=== PATIENT | female | born 1950 | race Caucasian/White ===

== ENCOUNTER 2016-09-24 18:29 | Inpatient (IN) ==
[2016-09-24 19:45] LABS: Basophils % 0.4 %; Eosinophils # 0.1 K/mcL (0.0-0.6); Eosinophils % 0.6 %; Hematocrit 40.9 % (35.3-44.9); Hemoglobin 13.2 g/dL (11.5-15.4); Immature Granulocytes % 0.5 % (0-4); Lymphocytes # 2.3 K/mcL (0.6-4.6); Lymphocytes % 22.3 %; Mean Corpuscular HGB Conc 32.3 g/dL (31.6-35.5); Mean Corpuscular Hemoglobin 26.2 pg (28.0-33.3); Mean Corpuscular Volume 81.2 fL (83.0-100.0); Mean Platelet Volume 11.5 fL (9.4-12.4); Monocytes # 0.7 K/mcL (0.0-1.3); Monocytes % 6.2 %; Neutrophils # 7.3 K/mcL (1.6-8.9); Platelet Count 238 K/mcL (140-400); Red Blood Count 5.04 M/mcL (3.82-4.97); Red Cell Distribution Width 15.9 % (11.5-14.5)
[2016-09-24 19:59] LABS: Alanine Aminotransferase 10 Units/L (0-55); Albumin 3.4 g/dL (3.5-5.0); Albumin/Globulin Ratio 0.9 (1.1-2.2); Alkaline Phosphatase 74 Units/L (38-126); Aspartate Amino Transferase 12 Units/L (5-34); BUN/Creatinine Ratio 14 (6-26); Bilirubin,Total 2.1 mg/dL (0.2-1.2); Blood Urea Nitrogen 10 mg/dL (7-20); Calcium 9.2 mg/dL (8.6-10.8); Carbon Dioxide 21 mEq/L (19-29); Chloride 108 mEq/L (98-109); Globulin 3.9 g/dL (2.4-3.5); Glucose 258 mg/dL (70-99); Osmolality,Calculated 294 (280-300); Potassium 3.9 mEq/L (3.5-4.5); Sodium 138 mEq/L (136-145); Total Protein 7.3 g/dL (6.0-8.3); eGFR For African Americans > 60 (> 60); eGFR For Non-African Americans > 60 (> 60)
[2016-09-24 20:03] LABS: Prothrombin Time 56.7 Seconds (9.4-12.1)
[2016-09-24] MEDS ORDERED: Furosemide 40 MG/4 ML VIAL IVP ONE (20:14)
--- NOTE | 2016-09-24 20:19 | Emergency Department Note ---
Disposition Clinical Impression: CHF (congestive heart failure), Supratherapeutic INR Disposition: Admitted As Inpatient Referrals: NO,PCP [Non-Partnered Physician] - Forms: ED Satisfaction Letter SOB HPI - General Chief Complaint: ED Shortness of Breath/Dyspnea Stated Complaint: "swollen, gaining fluid, SUKUMAR" Time Seen by Provider: 09/24/16 19:08 Source: patient Limitations: no limitations Nursing Notes Reviewed: Yes Vital Signs Reviewed: Yes - History of Present Illness Patient presents to complaint of vertigo weight gain over the past month. Patient will she is been having increasing shortness of breath with activity and at rest. Patient denies any chest pain denies fevers or chills. Patient is unsure of what Lasix she is on. Patient says she called her doctor reported these findings and she was instructed to report and was referred evaluation. - Related Data Home Medications Medication Instructions Recorded Confirmed GlipiZIDE [Glipizide] 10 mg PO BID 05/21/15 08/01/16 Lisinopril [Zestril] 10 mg PO DAILY 05/21/15 08/01/16 Metformin HCl [Glucophage] 1,000 mg PO BID 05/21/15 08/01/16 Metoprolol [Lopressor] 25 mg PO BID 05/21/15 08/01/16 Amlodipine [Norvasc] 5 mg PO DAILY 05/22/15 08/01/16 Aspirin Enteric Coated [Aspirin EC] 81 mg PO DAILY 05/22/15 08/01/16 Omeprazole [PriLOSEC] 20 mg PO DAILY 05/22/15 08/01/16 Spironolactone [Aldactone] 25 mg PO DAILY 05/22/15 08/01/16 Insulin Glargine,Hum.rec.anlog 20 unit SQ HS 08/01/16 08/01/16 [Lantus Solostar] Oxygen 2 l NS AD 08/01/16 08/01/16 Simvastatin [Zocor] 40 mg PO HS 08/01/16 08/01/16 Previous Rx's Medication Instructions Recorded Warfarin [Coumadin] 6 mg PO 1800 7 Days 05/26/15 Amoxicillin/Clavulanate [Augmentin] 875 mg PO BIDWM #6 tablet 08/06/16 Furosemide [Lasix] 80 mg PO DAILY 30 Days 08/06/16 Guaifenesin [Mucinex] 1,200 mg PO BID PRN #30 tab.er.12h 08/06/16 Oxycodone HCl/Acetaminophen 1 each PO DAILY PRN #20 tablet 08/06/16 [Percocet 5-325 mg Tablet] Potassium Chloride [K-Tab ER] 10 meq PO DAILY #30 tablet.er 08/06/16 PredniSONE 10 mg PO DAILY 12 Days 08/06/16 Allergies Allergy/AdvReac Type Severity Reaction Status Date / Time No Known Allergies Allergy Verified 05/21/15 20:00 All systems ED: reviewed and negative except as stated. 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: non-contributory - Social History Smoking Status: Never smoker Smokeless Tobacco Status: Yes Alcohol use: Reports: none Drug use: Reports: none Physical Exam - General Limitations: no limitations General appearance: alert, in no apparent distress - Head Head exam: atraumatic, normocephalic, normal inspection - Eye Eye exam: Present: normal appearance, PERRL, EOMI - ENT ENT exam: normal exam, normal oropharynx, mucous membranes moist - Neck Neck exam: Present: normal inspection, full ROM, trachea midline - Chest Chest inspection: Present: normal inspection, symmetric chest wall rise - Respiratory Respiratory exam: Present: prolonged expiratory phase, other (Fair air movement) - Cardiovascular Cardiovascular exam: Present: regular rate, normal rhythm, normal heart sounds - Abdominal Exam Abdominal exam: Present: soft, Non-Tender. Absent: tenderness, distention, guarding, rebound, rigidity - Extremities Exam Extremities exam: Present: pedal edema - Back Exam Back exam: Present: normal inspection, full ROM. Absent: tenderness - Neurological Exam Neurological exam: Present: alert, oriented X3 - Psychiatric Psychiatric exam: Present: normal affect, normal mood - Skin Skin exam: Present: warm, dry, intact, normal color Course Vital Signs Temperature 98.6 F 09/24/16 19:01 Pulse Rate 86 09/24/16 19:01 Respiratory Rate 18 09/24/16 19:01 Blood Pressure 171/83 09/24/16 19:01 O2 Sat by Pulse Oximetry 89 L 09/24/16 19:01 Temperature 98.6 F 09/24/16 19:01 Pulse Rate 88 09/24/16 20:49 Respiratory Rate 22 09/24/16 20:49 Blood Pressure 156/78 09/24/16 20:49 O2 Sat by Pulse Oximetry 92 L 09/24/16 20:49 Oxygen Delivery Oxygen Delivery Nasal Cannula Shortness of Breath/Dyspnea - Differential Diagnosis Likely: acute exacerbation of chronic obstructive airways disease, congestive heart failure, pneumonia, pulmonary embolism - Lab Data Lab results reviewed: Yes I reviewed the patient's lab results. Result diagrams: 09/24/16 19:42 09/24/16 19:42 Lab Results 09/24/16 09/24/16 09/24/16 Range/Units 19:42 19:42 19:42 WBC 10.5 (4.3-11.1) K/mcL RBC 5.04 H (3.82-4.97) M/mcL Hgb 13.2 (11.5-15.4) g/dL Hct 40.9 (35.3-44.9) % MCV 81.2 L (83.0-100.0) fL MCH 26.2 L (28.0-33.3) pg MCHC 32.3 (31.6-35.5) g/dL RDW 15.9 H (11.5-14.5) % Plt Count 238 (140-400) K/mcL MPV 11.5 (9.4-12.4) fL Immature Gran % 0.5 (0-4) % Seg Neutrophils % 70.0 % Lymphocytes % 22.3 % Monocytes % 6.2 % Eosinophils % 0.6 % Basophils % 0.4 % Neutrophils # 7.3 (1.6-8.9) K/mcL Lymphocytes # 2.3 (0.6-4.6) K/mcL Monocytes # 0.7 (0.0-1.3) K/mcL Eosinophils # 0.1 (0.0-0.6) K/mcL Basophils # 0.0 (0.0-0.2) K/mcL PT 56.7 H* (9.4-12.1) Seconds INR 5.0 H* APTT 53.0 H (26.0-36.0) Seconds Sodium 138 (136-145) mEq/L Potassium 3.9 (3.5-4.5) mEq/L Chloride 108 (98-109) mEq/L Carbon Dioxide 21 (19-29) mEq/L BUN 10 (7-20) mg/dL Creatinine 0.74 (0.57-1.11) mg/dL Est GFR ( Amer) > 60 (> 60) Est GFR (Non-Af Amer) > 60 (> 60) BUN/Creatinine Ratio 14 (6-26) Glucose 258 H (70-99) mg/dL Calculated Osmolality 294 (280-300) Calcium 9.2 (8.6-10.8) mg/dL Total Bilirubin 2.1 H (0.2-1.2) mg/dL AST 12 (5-34) Units/L ALT 10 (0-55) Units/L Alkaline Phosphatase 74 (38-126) Units/L Troponin I (0-0.03) ng/mL B-Natriuretic Peptide (0-100) pg/mL Serum Total Protein 7.3 (6.0-8.3) g/dL Albumin 3.4 L (3.5-5.0) g/dL Globulin 3.9 H (2.4-3.5) g/dL Albumin/Globulin Ratio 0.9 L (1.1-2.2) 09/24/16 09/24/16 Range/Units 19:42 19:42 WBC (4.3-11.1) K/mcL RBC (3.82-4.97) M/mcL Hgb (11.5-15.4) g/dL Hct (35.3-44.9) % MCV (83.0-100.0) fL MCH (28.0-33.3) pg MCHC (31.6-35.5) g/dL RDW (11.5-14.5) % Plt Count (140-400) K/mcL MPV (9.4-12.4) fL Immature Gran % (0-4) % Seg Neutrophils % % Lymphocytes % % Monocytes % % Eosinophils % % Basophils % % Neutrophils # (1.6-8.9) K/mcL Lymphocytes # (0.6-4.6) K/mcL Monocytes # (0.0-1.3) K/mcL Eosinophils # (0.0-0.6) K/mcL Basophils # (0.0-0.2) K/mcL PT (9.4-12.1) Seconds INR APTT (26.0-36.0) Seconds Sodium (136-145) mEq/L Potassium (3.5-4.5) mEq/L Chloride (98-109) mEq/L Carbon Dioxide (19-29) mEq/L BUN (7-20) mg/dL Creatinine (0.57-1.11) mg/dL Est GFR ( Amer) (> 60) Est GFR (Non-Af Amer) (> 60) BUN/Creatinine Ratio (6-26) Glucose (70-99) mg/dL Calculated Osmolality (280-300) Calcium (8.6-10.8) mg/dL Total Bilirubin (0.2-1.2) mg/dL AST (5-34) Units/L ALT (0-55) Units/L Alkaline Phosphatase (38-126) Units/L Troponin I 0.01 (0-0.03) ng/mL B-Natriuretic Peptide 135 H (0-100) pg/mL Serum Total Protein (6.0-8.3) g/dL Albumin (3.5-5.0) g/dL Globulin (2.4-3.5) g/dL Albumin/Globulin Ratio (1.1-2.2) - Radiology Data Radiology results reviewed: Yes I reviewed the patient's radiology results. Chest X-Ray 09/24/16 19:08 IMPRESSION: CHF with mild pulmonary edema. D/ / Scout Mathis MD / Scout Mathis MD Interpreting Provider: Scout Mathis MD - EKG Data EKG attestation: Yes I reviewed and interpreted this EKG. EKG results narrative: EKG is unchanged from previous. Electrically paced Critical Care Time Total Critical Care Time: 30 Attestation: Critical care performed: Time is exclusive of separately billable procedures. Time includes: direct patient care, patient reassessment, coordination of patient care, interpretation of data (laboratory data, radiology data, and respiratory data), review of patient's medical records, medical consultation and documentation of patient care. Procedures included in critical care time: Procedures excluded from critical care time:
[2016-09-24] MEDS ORDERED: Naloxone 0.4 MG/ML INJ IVP PRN (23:34)
[2016-09-25] MEDS ORDERED: *HR* OxyCODONE/APAP 5/325 TABLET PO PRN (00:04)
[2016-09-25] MEDS ORDERED: D5% in Water 1,000 ML IV PRN (00:13)
[2016-09-25] MEDS ORDERED: *HR* Dextrose 50 % in Water (Syg) 50 ML SYRINGE IVP PRN (00:13)
[2016-09-25] MEDS ORDERED: Dextrose Gel 15 GM PO PRN ×2 (00:13)
--- NOTE | 2016-09-25 00:37 | Internal Med History&Physical ---
Date of Encounter: 09/25/16 Time of Encounter: 23:30 Assessment and Plan (1) CHF (congestive heart failure) Current visit: Yes Status: Acute 1 acute on chronic diastolic failure. Echo March 2016 EF 60%. Patient's been experiencing increasing shortness of breath pedal edema as well as weight gain. Chest x-ray with CHF mild pulmonary edema. Diuresis with Lasix 2 daily weights and monitor intake and output 3. Fluid restriction and low sodium diet 4 oxygen as needed to maintain SPO2 greater than 92% 5 monitor electrolytes and replace as needed (2) Supratherapeutic INR Current visit: Yes Status: Acute 1 patient is on Coumadin for chronic A. fib. INR today is 5.0. Patient taking Coumadin 5 mg daily Will hold recheck INR Thursday. (3) Atrial fibrillation Current visit: No Status: Chronic 1 patient has chronic atrial fibrillation will continue with metoprolol for rate control. We will hold Coumadin for now due to supratherapeutic INR. We will resume once INR below 3 Qualifiers: Atrial fibrillation type: chronic Qualified Code(s): I48.2 - Chronic atrial fibrillation (4) DVT prophylaxis Current visit: No Status: Acute 1 SCDs due to supratherapeutic INR (5) Diabetes mellitus Current visit: No Status: Chronic 1 Accu-Cheks before meals at bedtime we will continue with Lantus and sliding scale insulin and maintain postprandial less than 180 Qualifiers: Diabetes mellitus type: type 2 Diabetes mellitus complication status: with unspecified complications Diabetes mellitus philatelic consultant insulin use: unspecified skilled nursing insulin use status Qualified Code(s): E11.8 - Type 2 diabetes mellitus with unspecified complications Internal Medicine - H&P: HPI Chief complaint: SOB weight gain Admitted From: Home History of present illness: Ms. Jasmine is a 65 year old female past medical history of atrial fibrillation and congestive heart failure DVT diabetes hyperlipidemia pacemaker with AICD. Patient states she is experiencing shortness of breath and cough for 3 days. She is on home oxygen 2 L which he states is not relieving any of her symptoms. She has also noticed increased swelling to lower extremities as well as a 30 pound weight gain over a month. She is on Lasix which she states is taking her as prescribed she denies any fevers chills nausea vomiting diarrhea. She went to her primary care physician today for routine lab draw and reported symptoms. She was advised to go to ER for evaluation. According to ED records patient's BNP was 135 troponin 0.01 she has supra therapeutic INR 5.0 chest x- ray revealed CHF mild pulmonary edema. She was given IV Lasix place on oxygen and admitted for further workup and evaluation. Presently the patient denies any CP She complains of SOB on exertion and has a dry nonproductive cough. She does not appear to be in any respiratory distress and her lung sounds have crackles in the bases bilat She is hemodynamically stable Past Med Surg Social Fam HX - Past Medical History Medical history: atrial fibrillation, cancer, CHF, DVT, diabetes, GERD, hyperlipidemia, hypertension Psychiatric history: no psych history - Past Surgical History Surgical History: , cholecystectomy, pacemaker/AICD - Social History Smoking Status: Never smoker Smokeless Tobacco Status: Yes Alcohol use: none Drug use: none - Family History Mother Adopted: No Living Status: Hx Family Cardiac Disorders: No Hx Family Respiratory Disorders: No Hx Family Cancer: Yes (colon cancer) Hx Family GI Disorders: Yes Hx Family Endocrine Disorder: No Hx Family Neuromuscular Disorders: No Hx Family Neurologic Disorders: No Hx Family HEENT Disorders: No Hx Family Autoimmune Disorders: No Father Adopted: No Living Status: Hx Family Cardiac Disorders: Yes (HTN) Hx Family Neurologic Disorders: Yes (stroke) Internal Medicine - H&P: Meds GlipiZIDE [Glipizide] 10 mg PO BID 05/21/15 [History] Lisinopril [Zestril] 10 mg PO DAILY 05/21/15 [History] Metformin HCl [Glucophage] 1,000 mg PO BID 05/21/15 [History] Metoprolol [Lopressor] 25 mg PO BID 05/21/15 [History] Amlodipine [Norvasc] 5 mg PO DAILY 05/22/15 [History] Aspirin Enteric Coated [Aspirin EC] 81 mg PO DAILY 05/22/15 [History] Omeprazole [PriLOSEC] 20 mg PO DAILY 05/22/15 [History] Spironolactone [Aldactone] 25 mg PO DAILY 05/22/15 [History] Warfarin [Coumadin] 6 mg PO 1800 7 Days 05/26/15 [Rx] Insulin Glargine,Hum.rec.anlog [Lantus Solostar] 40 unit SQ HS 08/01/16 [History ] Oxygen 2 l NS AD 08/01/16 [History] Simvastatin [Zocor] 40 mg PO HS 08/01/16 [History] Oxycodone HCl/Acetaminophen [Percocet 5-325 mg Tablet] 1 each PO DAILY PRN #20 tablet 08/06/16 [Rx] Aclidinium [place] [Tudorza Pressair] 1 puff IH BID 09/24/16 [History] Furosemide [Lasix] 40 mg PO DAILY 09/24/16 [History] Insulin ASPART [NovoLOG] 10 unit SQ TID 09/24/16 [History] Nystatin Cream [Mycostatin Cream] 1 appl TP BID 09/24/16 [History] Allergies No Known Allergies Allergy (Verified 09/24/16 21:30) All Systems PM: A 10-system review of systems was performed and is negative for pertinent findings except as documented above in the HPI. - Constitutional Constitutional: fatigue - Cardiovascular Cardiovascular ROS IM: dyspnea - Respiratory Respiratory: cough, dyspnea, wheezing - Gastrointestinal Gastrointestinal: early satiety - Genitourinary Genitourinary: no change in urinary stream, no dysuria, no flank pain, no hematuria - Musculoskeletal Musculoskeletal ROS IM: no numbness, no tingling - Neurological Neurological ROS: no confusion, no convulsions, no focal weakness, no numbness, no tingling, no tremor(s) - Constitutional Vitals: Temp Pulse Resp BP Pulse Ox 98.6 F 84 16 145/69 92 L 09/24/16 23:01 09/24/16 23:01 09/24/16 23:01 09/24/16 23:01 09/24/16 23:01 General appearance: Present: A&O X 3, morbidly obese, answers questions appropriately - Head Head exam: Present: atraumatic, normocephalic - Respiratory Respiratory exam: Present: CTAB. Absent: accessory muscle use, rales, rhonchi, wheezes Additional comments: Crackles in bases bilaterally - Cardiovascular Cardiovascular exam: Present: irregular rhythm, +S1, +S2. Absent: diastolic murmur, gallop, rubs, systolic murmur - GI/Abdominal GI/Abdominal exam: Present: normal bowel sounds, soft, no peritoneal signs. Absent: distended, tenderness - Extremities Exam Extremities exam: Present: pedal edema, warm, radial pulses palpable and symetrical. Absent: calf tenderness, cyanotic Additional comments: +1 pitting edema to lower extremities bilaterally - Neurological Exam Neurological exam: Present: CN II-XII intact, oriented X3, no focal deficits. Absent: pronater drift, facial droop, speech deficit - Skin Skin exam: Present: dry, intact Internal Med - H&P Results - Labs CBC & Chem 7: 09/24/16 19:42 09/24/16 19:42 - EKG Data EKG comments: 09/25/16 00:40 EKG with ventricularly paced rhythm - Diagnostic Studies Chest x-ray Additional comments: Chest x-ray per radiology reading mild CHF with pulmonary edema
[2016-09-25 03:29] LABS: Basophils % 0.4 %; Eosinophils # 0.1 K/mcL (0.0-0.6); Eosinophils % 0.8 %; Hematocrit 38.4 % (35.3-44.9); Hemoglobin 12.3 g/dL (11.5-15.4); Immature Granulocytes % 0.5 % (0-4); Immature Platelets 8.4 % (1.1-6.1); Lymphocytes # 2.5 K/mcL (0.6-4.6); Lymphocytes % 29.7 %; Mean Corpuscular Hemoglobin 25.9 pg (28.0-33.3); Mean Corpuscular Volume 80.8 fL (83.0-100.0); Mean Platelet Volume 11.6 fL (9.4-12.4); Monocytes # 0.7 K/mcL (0.0-1.3); Monocytes % 7.8 %; Neutrophils # 5.2 K/mcL (1.6-8.9); Platelet Count 206 K/mcL (140-400); Red Blood Count 4.75 M/mcL (3.82-4.97); Red Cell Distribution Width 15.8 % (11.5-14.5); Segmented Neutrophils % 60.8 %
[2016-09-25 03:46] LABS: BUN/Creatinine Ratio 16 (6-26); Blood Urea Nitrogen 11 mg/dL (7-20); Calcium 9.2 mg/dL (8.6-10.8); Carbon Dioxide 27 mEq/L (19-29); Chloride 105 mEq/L (98-109); Glucose 204 mg/dL (70-99); Osmolality,Calculated 295 (280-300); Potassium 3.5 mEq/L (3.5-4.5); Sodium 140 mEq/L (136-145); eGFR For African Americans > 60 (> 60); eGFR For Non-African Americans > 60 (> 60)
[2016-09-25] MEDS: Aspirin Enteric Coated 81 MG Tablet PO SCH (08:29)
[2016-09-25] MEDS: Insulin LISPRO 300 UNITS/3 ML VIAL SQ SCH ×4 (08:30→21:36)
[2016-09-25] MEDS: amLODIPine 5 MG TABLET PO SCH (08:30)
[2016-09-25] MEDS: Furosemide 40 MG/4 ML VIAL IVP SCH ×2 (08:30→21:37)
[2016-09-25] MEDS: Spironolactone 25 MG TABLET PO SCH (08:30)
--- NOTE | 2016-09-25 13:09 | Internal Med Progress Note ---
Date of Encounter: 09/25/16 Time of Encounter: 12:25 - Assessment and plan (1) CHF (congestive heart failure) Current Visit: Yes Status: Acute Assessment and plan: Continue current management Add robitussin for cough Qualifiers: Congestive heart failure type: diastolic Congestive heart failure chronicity: acute on chronic Qualified Code(s): I50.33 - Acute on chronic diastolic (congestive) heart failure (2) Supratherapeutic INR Current Visit: Yes Status: Acute Assessment and plan: MOnitor INR No evidence of bleeding (3) COPD (chronic obstructive pulmonary disease) Current Visit: Yes Status: Chronic Assessment and plan: Not wheezing Not in exacerbation Duonebs prn Qualifiers: COPD type: COPD with acute lower respiratory infection Qualified Code(s): J44.0 - Chronic obstructive pulmonary disease with acute lower respiratory infection (4) Atrial fibrillation Current Visit: Yes Status: Chronic Qualifiers: Atrial fibrillation type: chronic Qualified Code(s): I48.2 - Chronic atrial fibrillation (5) Diabetes mellitus Current Visit: Yes Status: Chronic Assessment and plan: Continue insulin Qualifiers: Diabetes mellitus type: type 2 Diabetes mellitus complication status: with unspecified complications 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 mellitus 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 term care phlebotomist insulin use: unspecified senior care insulin use status Qualified Code(s): E11.8 - Type 2 diabetes mellitus with unspecified complications (6) HTN (hypertension) Current Visit: Yes Status: Chronic Qualifiers: Hypertension type: essential hypertension Qualified Code(s): I10 - Essential (primary) hypertension - Subjective Interval history: 65 Y/O F with dCHF, Afib with PCM on Coumadin, Obesity, HTN, DM, HLD She is being managed for CHF exacerbation and supratherapeutic INR She is seen at bedside with spouse, cheerful in no form of distress Complains of hoarseness from cough - Constitutional Vitals: Temp Pulse Resp BP Pulse Ox 97.6 F 75 16 109/65 90 L 09/25/16 11:14 09/25/16 11:14 09/25/16 11:14 09/25/16 11:14 09/25/16 11:14 General appearance: Present: A&O X 3, morbidly obese, no acute distress, answers questions appropriately - Head Head exam: Present: atraumatic, normocephalic - Eye Eye exam: Present: PERRL, conjuntiva pink, sclera anicteric Pupils: Present: PERRL - Neck Neck exam general surgery: Present: supple, trachea midline. Absent: lymphadenopathy - Respiratory Respiratory exam: Present: CTAB. Absent: accessory muscle use, rales, rhonchi, wheezes - Cardiovascular Cardiovascular exam: Present: irregular rhythm, +S1, +S2. Absent: diastolic murmur, gallop, rubs, systolic murmur - GI/Abdominal GI/Abdominal exam: Present: normal bowel sounds, soft, no peritoneal signs. Absent: distended, tenderness - Extremities Exam Extremities exam: Present: pedal edema, warm, radial pulses palpable and symetrical. Absent: calf tenderness, cyanotic - Neurological Exam Neurological exam: Present: CN II-XII intact, oriented X3, no focal deficits. Absent: pronater drift, facial droop, speech deficit - Skin Skin exam: Present: dry Internal Medicine: Result - Labs CBC & Chem 7: 09/25/16 02:56 09/25/16 02:56 Labs: Short CBC 09/25/16 Range/Units 02:56 WBC 8.6 (4.3-11.1) K/mcL Hgb 12.3 (11.5-15.4) g/dL Hct 38.4 (35.3-44.9) % Plt Count 206 (140-400) K/mcL Neutrophils # 5.2 (1.6-8.9) K/mcL BMP 09/25/16 02:56 Sodium 140 Potassium 3.5 Chloride 105 Carbon Dioxide 27 BUN 11 Creatinine 0.68 Glucose 204 H Calcium 9.2 Cardiac Enzymes 09/25/16 09/25/16 Range/Units 02:56 10:06 Troponin I 0.01 0.02 (0-0.03) ng/mL - ABG Interpretation ABG results: PT/INR, D-dimer PT 56.7 Seconds (9.4-12.1) H* 09/24/16 19:42 Consult Discharge Plan - Plan Referrals: Desi Cornell [Primary Care Provider] -
--- NOTE | 2016-09-25 14:38 | Electrocardiograph Report ---
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
--- NOTE | 2016-09-25 14:44 | Electrocardiograph Report ---
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
[2016-09-25] MEDS: Insulin DETEMIR 100 UNIT/ML X5UNITS SQ SCH (21:37)
[2016-09-26 04:35] LABS: Basophils % 0.5 %; Eosinophils # 0.1 K/mcL (0.0-0.6); Eosinophils % 1.4 %; Hemoglobin 12.4 g/dL (11.5-15.4); Immature Granulocytes % 0.4 % (0-4); Lymphocytes # 2.6 K/mcL (0.6-4.6); Lymphocytes % 31.9 %; Mean Corpuscular HGB Conc 31.8 g/dL (31.6-35.5); Mean Corpuscular Hemoglobin 25.5 pg (28.0-33.3); Mean Corpuscular Volume 80.2 fL (83.0-100.0); Mean Platelet Volume 11.7 fL (9.4-12.4); Monocytes # 0.6 K/mcL (0.0-1.3); Monocytes % 7.6 %; Neutrophils # 4.7 K/mcL (1.6-8.9); Platelet Count 227 K/mcL (140-400); Red Blood Count 4.86 M/mcL (3.82-4.97); Red Cell Distribution Width 15.7 % (11.5-14.5); Segmented Neutrophils % 58.2 %
[2016-09-26 04:42] LABS: INR 2.6; Prothrombin Time 29.1 Seconds (9.4-12.1)
[2016-09-26 04:53] LABS: BUN/Creatinine Ratio 23 (6-26); Blood Urea Nitrogen 16 mg/dL (7-20); Carbon Dioxide 27 mEq/L (19-29); Chloride 103 mEq/L (98-109); Glucose 204 mg/dL (70-99); Osmolality,Calculated 295 (280-300); Potassium 3.4 mEq/L (3.5-4.5); Sodium 139 mEq/L (136-145); eGFR For African Americans > 60 (> 60); eGFR For Non-African Americans > 60 (> 60)
[2016-09-26] MEDS: Furosemide 40 MG/4 ML VIAL IVP SCH ×2 (08:37→19:54)
[2016-09-26] MEDS: amLODIPine 5 MG TABLET PO SCH (08:37)
[2016-09-26] MEDS: Aspirin Enteric Coated 81 MG Tablet PO SCH (08:37)
[2016-09-26] MEDS: Spironolactone 25 MG TABLET PO SCH (08:37)
[2016-09-26] MEDS: Insulin LISPRO 300 UNITS/3 ML VIAL SQ SCH ×4 (08:39→20:20)
[2016-09-26] MEDS ORDERED: *HR* Warfarin 3 MG TABLET PO ONE (15:40)
--- NOTE | 2016-09-26 15:44 | Internal Med Progress Note ---
Date of Encounter: 09/26/16 Time of Encounter: 13:10 - Assessment and plan (1) CHF (congestive heart failure) Current Visit: Yes Status: Acute Assessment and plan: Improving, with adequate diuresis, negative 3080mls balance She is also loosing weight Continue IV Lasix, fluid restriction, strict intake/output current management Qualifiers: Congestive heart failure type: diastolic Congestive heart failure chronicity: acute on chronic Qualified Code(s): I50.33 - Acute on chronic diastolic (congestive) heart failure (2) Supratherapeutic INR Current Visit: Yes Status: Acute Assessment and plan: INR today at 2.6 from 5 Will restart coumadin at 3mg , monitor INR (3) COPD (chronic obstructive pulmonary disease) Current Visit: Yes Status: Chronic Assessment and plan: Not wheezing Not in exacerbation Duonebs prn Qualifiers: COPD type: COPD with acute lower respiratory infection Qualified Code(s): J44.0 - Chronic obstructive pulmonary disease with acute lower respiratory infection (4) Atrial fibrillation Current Visit: Yes Status: Chronic Qualifiers: Atrial fibrillation type: chronic Qualified Code(s): I48.2 - Chronic atrial fibrillation (5) Diabetes mellitus Current Visit: Yes Status: Chronic Assessment and plan: Continue insulin Qualifiers: Diabetes mellitus type: type 2 Diabetes mellitus complication status: with unspecified complications Diabetes mellitus rodent exterminator insulin use: unspecified retirement insulin use status Qualified Code(s): E11.8 - Type 2 diabetes mellitus with unspecified complications (6) HTN (hypertension) Current Visit: Yes Status: Chronic Assessment and plan: Controlled Qualifiers: Hypertension type: essential hypertension Qualified Code(s): I10 - Essential (primary) hypertension - Subjective Interval history: 65 Y/O F with dCHF, Afib with PCM on Coumadin, Obesity, HTN, DM, HLD She is being managed for CHF exacerbation and supratherapeutic INR She is seen at bedside with spouse, cheerful in no form of distress - Constitutional Vitals: Temp Pulse Resp BP Pulse Ox 97.9 F 83 17 109/69 90 L 09/26/16 15:17 09/26/16 15:17 09/26/16 15:17 09/26/16 15:17 09/26/16 15:17 General appearance: Present: A&O X 3, morbidly obese, no acute distress, answers questions appropriately - Head Head exam: Present: atraumatic, normocephalic - Eye Eye exam: Present: PERRL, conjuntiva pink, sclera anicteric Pupils: Present: PERRL - Neck Neck exam general surgery: Present: supple, trachea midline. Absent: lymphadenopathy - Respiratory Respiratory exam: Present: CTAB. Absent: accessory muscle use, rales, rhonchi, wheezes - Cardiovascular Cardiovascular exam: Present: RRR, +S1, +S2. Absent: diastolic murmur, gallop, rubs, systolic murmur - GI/Abdominal GI/Abdominal exam: Present: normal bowel sounds, soft, no peritoneal signs. Absent: distended, tenderness - Extremities Exam Extremities exam: Present: pedal edema (trace), warm, radial pulses palpable and symetrical. Absent: calf tenderness, cyanotic - Neurological Exam Neurological exam: Present: CN II-XII intact, oriented X3, no focal deficits. Absent: pronater drift, facial droop, speech deficit - Skin Skin exam: Present: dry, intact Internal Medicine: Result - Labs CBC & Chem 7: 09/26/16 04:11 09/26/16 04:11 Labs: Short CBC 09/26/16 Range/Units 04:11 WBC 8.1 (4.3-11.1) K/mcL Hgb 12.4 (11.5-15.4) g/dL Hct 39.0 (35.3-44.9) % Plt Count 227 (140-400) K/mcL Neutrophils # 4.7 (1.6-8.9) K/mcL BMP 09/26/16 04:11 Sodium 139 Potassium 3.4 L Chloride 103 Carbon Dioxide 27 BUN 16 Creatinine 0.69 Glucose 204 H Calcium 9.0 - ABG Interpretation ABG results: PT/INR, D-dimer PT 29.1 Seconds (9.4-12.1) H 09/26/16 04:11 Consult Discharge Plan - Plan Referrals: Desi Cornell [Primary Care Provider] -
[2016-09-26] MEDS: Insulin DETEMIR 100 UNIT/ML X5UNITS SQ SCH (20:21)
[2016-09-27 04:38] LABS: Basophils # 0.1 K/mcL (0.0-0.2); Basophils % 0.6 %; Eosinophils # 0.1 K/mcL (0.0-0.6); Eosinophils % 1.3 %; Hematocrit 40.9 % (35.3-44.9); Immature Granulocytes % 0.7 % (0-4); Lymphocytes # 2.8 K/mcL (0.6-4.6); Mean Corpuscular HGB Conc 31.8 g/dL (31.6-35.5); Mean Corpuscular Hemoglobin 25.9 pg (28.0-33.3); Mean Corpuscular Volume 81.6 fL (83.0-100.0); Mean Platelet Volume 11.5 fL (9.4-12.4); Monocytes # 0.8 K/mcL (0.0-1.3); Monocytes % 8.4 %; Neutrophils # 5.3 K/mcL (1.6-8.9); Platelet Count 230 K/mcL (140-400); Red Blood Count 5.01 M/mcL (3.82-4.97); Red Cell Distribution Width 15.5 % (11.5-14.5)
[2016-09-27 04:55] LABS: BUN/Creatinine Ratio 27 (6-26); Blood Urea Nitrogen 21 mg/dL (7-20); Calcium 9.2 mg/dL (8.6-10.8); Carbon Dioxide 26 mEq/L (19-29); Chloride 102 mEq/L (98-109); Glucose 286 mg/dL (70-99); Osmolality,Calculated 299 (280-300); Potassium 3.6 mEq/L (3.5-4.5); Sodium 138 mEq/L (136-145); eGFR For African Americans > 60 (> 60); eGFR For Non-African Americans > 60 (> 60)
[2016-09-27] MEDS: Insulin LISPRO 300 UNITS/3 ML VIAL SQ SCH ×4 (06:41→21:25)
[2016-09-27] MEDS: amLODIPine 5 MG TABLET PO SCH (08:33)
[2016-09-27] MEDS: Spironolactone 25 MG TABLET PO SCH (08:33)
[2016-09-27] MEDS: Aspirin Enteric Coated 81 MG Tablet PO SCH (08:33)
[2016-09-27] MEDS: Furosemide 40 MG/4 ML VIAL IVP SCH (08:33)
[2016-09-27 09:50] LABS: INR 1.7; Prothrombin Time 18.4 Seconds (9.4-12.1)
[2016-09-27] MEDS ORDERED: DiphenhydraMINE CREAM 28.4 GM TUBE TP PRN (11:56)
--- NOTE | 2016-09-27 15:02 | Internal Med Progress Note ---
Date of Encounter: 09/27/16 Time of Encounter: 12:25 - Assessment and plan (1) CHF (congestive heart failure) Current Visit: Yes Status: Acute Assessment and plan: Improving, with adequate diuresis, negative 3080mls balance Will transition to oral lasix For possible discharge a.m if improvement is consistent and leg swelling improves Qualifiers: Congestive heart failure type: diastolic Congestive heart failure chronicity: acute on chronic Qualified Code(s): I50.33 - Acute on chronic diastolic (congestive) heart failure (2) Supratherapeutic INR Current Visit: Yes Status: Acute Assessment and plan: INR now 1.7 Coumadin restarted, monitor (3) COPD (chronic obstructive pulmonary disease) Current Visit: Yes Status: Chronic Assessment and plan: Not wheezing Not in exacerbation Duonebs prn Qualifiers: COPD type: COPD with acute lower respiratory infection Qualified Code(s): J44.0 - Chronic obstructive pulmonary disease with acute lower respiratory infection (4) Atrial fibrillation Current Visit: Yes Status: Chronic Assessment and plan: rate is controlled Qualifiers: Atrial fibrillation type: chronic Qualified Code(s): I48.2 - Chronic atrial fibrillation (5) Diabetes mellitus Current Visit: Yes Status: Chronic Assessment and plan: Continue insulin Qualifiers: Diabetes mellitus type: type 2 Diabetes mellitus complication status: with unspecified complications Diabetes mellitus residential insulin use: 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 Qualified Code(s): E11.8 - Type 2 diabetes mellitus with unspecified complications (6) HTN (hypertension) Current Visit: Yes Status: Chronic Assessment and plan: Controlled Qualifiers: Hypertension type: essential hypertension Qualified Code(s): I10 - Essential (primary) hypertension (7) Right leg swelling Current Visit: Yes Status: Acute Assessment and plan: Benadryl for itching Possibly from insect bite Unlikely DVT, preliminary report negative Unlikley ruptured nagy's cyst due to location of swelling It is most likely an insect bite If it worsens, will order leg CT to rule out myositis and or collection - Subjective Interval history: 65 Y/O F with dCHF, Afib with PCM on Coumadin, Obesity, HTN, DM, HLD She is being managed for CHF exacerbation and supratherapeutic INR She has lost ~4kg since admission and negative balance >3 INR today 1.7, Coumadin had been restarted last night This morning, patient complains of right calf swelling which initially started as a "bump" and spread to surrounding area with burning sensation . No itching. I have examined the right leg and there is a wheal in the medial kathi area with its longest diameter ~8cm, no surrounding hyperemia there are however one or two visible entry points of what seems to be an insect bite. Her doraslis pedis pulse on the right leg is equal and 2+, as it is in the left. There is no popliteal mass or tenderness Doppler for DVT had been ordered at onset of symptoms by night time, preliminary reading is negative for DVT - Constitutional Vitals: Temp Pulse Resp BP Pulse Ox 97.7 F 90 16 136/84 94 L 09/27/16 11:27 09/27/16 11:27 09/27/16 11:27 09/27/16 11:27 09/27/16 11:27 General appearance: Present: A&O X 3, morbidly obese, no acute distress, answers questions appropriately - Head Head exam: Present: atraumatic, normocephalic - Eye Eye exam: Present: PERRL, conjuntiva pink, sclera anicteric Pupils: Present: PERRL - Neck Neck exam general surgery: Present: supple, trachea midline. Absent: lymphadenopathy - Respiratory Respiratory exam: Present: CTAB. Absent: accessory muscle use, rales, rhonchi, wheezes - Cardiovascular Cardiovascular exam: Present: RRR, +S1, +S2. Absent: diastolic murmur, gallop, rubs, systolic murmur - GI/Abdominal GI/Abdominal exam: Present: normal bowel sounds, soft, no peritoneal signs. Absent: distended, tenderness - Extremities Exam Additional comments: As described in HPI - Neurological Exam Neurological exam: Present: CN II-XII intact, oriented X3, no focal deficits. Absent: pronater drift, facial droop, speech deficit - Skin Skin exam: Present: dry Internal Medicine: Result - Labs CBC & Chem 7: 09/27/16 04:00 09/27/16 04:00 Labs: Short CBC 09/27/16 Range/Units 04:00 WBC 9.1 (4.3-11.1) K/mcL Hgb 13.0 (11.5-15.4) g/dL Hct 40.9 (35.3-44.9) % Plt Count 230 (140-400) K/mcL Neutrophils # 5.3 (1.6-8.9) K/mcL BMP 09/27/16 04:00 Sodium 138 Potassium 3.6 Chloride 102 Carbon Dioxide 26 BUN 21 H Creatinine 0.77 Glucose 286 H Calcium 9.2 - ABG Interpretation ABG results: PT/INR, D-dimer PT 18.4 Seconds (9.4-12.1) H 09/27/16 09:19 Consult Discharge Plan - Plan Referrals: Desi Cornell [Primary Care Provider] -
[2016-09-27] MEDS: Insulin DETEMIR 100 UNIT/ML X5UNITS SQ SCH (21:25)
[2016-09-28 04:20] LABS: Basophils % 0.5 %; Eosinophils # 0.1 K/mcL (0.0-0.6); Eosinophils % 1.4 %; Hematocrit 39.9 % (35.3-44.9); Hemoglobin 12.7 g/dL (11.5-15.4); Immature Granulocytes % 0.3 % (0-4); Lymphocytes # 2.9 K/mcL (0.6-4.6); Lymphocytes % 33.3 %; Mean Corpuscular HGB Conc 31.8 g/dL (31.6-35.5); Mean Corpuscular Hemoglobin 25.9 pg (28.0-33.3); Mean Corpuscular Volume 81.4 fL (83.0-100.0); Monocytes # 0.7 K/mcL (0.0-1.3); Monocytes % 7.7 %; Neutrophils # 4.9 K/mcL (1.6-8.9); Platelet Count 235 K/mcL (140-400); Red Cell Distribution Width 15.5 % (11.5-14.5); Segmented Neutrophils % 56.8 %
[2016-09-28 04:43] LABS: BUN/Creatinine Ratio 32 (6-26); Blood Urea Nitrogen 23 mg/dL (7-20); Calcium 9.2 mg/dL (8.6-10.8); Carbon Dioxide 27 mEq/L (19-29); Chloride 103 mEq/L (98-109); Glucose 261 mg/dL (70-99); Osmolality,Calculated 299 (280-300); Potassium 3.6 mEq/L (3.5-4.5); Sodium 138 mEq/L (136-145); eGFR For African Americans > 60 (> 60); eGFR For Non-African Americans > 60 (> 60)
[2016-09-28 05:27] LABS: INR 1.6; Prothrombin Time 17.3 Seconds (9.4-12.1)
[2016-09-28] MEDS ORDERED: *HR* Warfarin 5 MG TABLET PO ONE (08:40)
[2016-09-28] MEDS: Aspirin Enteric Coated 81 MG Tablet PO SCH (09:46)
[2016-09-28] MEDS: Spironolactone 25 MG TABLET PO SCH (09:46)
[2016-09-28] MEDS: Insulin LISPRO 300 UNITS/3 ML VIAL SQ SCH ×4 (09:47→20:58)
[2016-09-28] MEDS: Furosemide 40 MG TABLET PO SCH ×2 (09:50→17:36)
[2016-09-28] MEDS: amLODIPine 5 MG TABLET PO SCH (12:54)
--- NOTE | 2016-09-28 16:38 | Internal Med Progress Note ---
Date of Encounter: 09/28/16 Time of Encounter: 12:15 - Assessment and plan (1) CHF (congestive heart failure) Current Visit: Yes Status: Acute Assessment and plan: Improving, with adequate diuresis, negative 3080mls balance Will transition to oral lasix For possible discharge a.m if improvement is consistent and leg swelling improves Qualifiers: Congestive heart failure type: diastolic Congestive heart failure chronicity: acute on chronic Qualified Code(s): I50.33 - Acute on chronic diastolic (congestive) heart failure (2) Supratherapeutic INR Current Visit: Yes Status: Acute Assessment and plan: INR now 1.6 Coumadin restarted, monitor (3) COPD (chronic obstructive pulmonary disease) Current Visit: Yes Status: Chronic Assessment and plan: Not wheezing Not in exacerbation Duonebs prn Qualifiers: COPD type: COPD with acute lower respiratory infection Qualified Code(s): J44.0 - Chronic obstructive pulmonary disease with acute lower respiratory infection (4) Atrial fibrillation Current Visit: Yes Status: Chronic Assessment and plan: rate is controlled Qualifiers: Atrial fibrillation type: chronic Qualified Code(s): I48.2 - Chronic atrial fibrillation (5) Diabetes mellitus Current Visit: Yes Status: Chronic Assessment and plan: Continue insulin Qualifiers: Diabetes mellitus type: type 2 Diabetes mellitus complication status: with unspecified complications Diabetes mellitus prison insulin use: 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 Qualified Code(s): E11.8 - Type 2 diabetes mellitus with unspecified complications (6) HTN (hypertension) Current Visit: Yes Status: Chronic Assessment and plan: Controlled Qualifiers: Hypertension type: essential hypertension Qualified Code(s): I10 - Essential (primary) hypertension (7) Right leg swelling Current Visit: Yes Status: Acute Assessment and plan: DVT ruled out Much more improved this a.m, with port of entry of bite visible - Subjective Interval history: 65 Y/O F with dCHF, Afib with PCM on Coumadin, Obesity, HTN, DM, HLD She is being managed for CHF exacerbation and supratherapeutic INR She is adequate;y diuressed and lasix is being transitioned to oral She has no new complains Leg swelling has improved INR subtherapeutic - Constitutional Vitals: Temp Pulse Resp BP Pulse Ox 98.2 F 79 15 122/78 91 L 09/28/16 14:56 09/28/16 14:56 09/28/16 14:56 09/28/16 14:56 09/28/16 14:56 General appearance: Present: A&O X 3, morbidly obese, no acute distress, answers questions appropriately - Head Head exam: Present: atraumatic, normocephalic - Eye Eye exam: Present: PERRL, conjuntiva pink, sclera anicteric Pupils: Present: PERRL - Neck Neck exam general surgery: Present: supple, trachea midline. Absent: lymphadenopathy - Respiratory Respiratory exam: Present: CTAB. Absent: accessory muscle use, rales, rhonchi, wheezes - Cardiovascular Cardiovascular exam: Present: RRR, +S1, +S2. Absent: diastolic murmur, gallop, rubs, systolic murmur - GI/Abdominal GI/Abdominal exam: Present: normal bowel sounds, soft, no peritoneal signs. Absent: distended, tenderness - Extremities Exam Extremities exam: Present: pedal edema, warm, radial pulses palpable and symetrical. Absent: calf tenderness, cyanotic - Neurological Exam Neurological exam: Present: CN II-XII intact, oriented X3, no focal deficits. Absent: pronater drift, facial droop, speech deficit - Skin Skin exam: Present: dry Internal Medicine: Result - Labs CBC & Chem 7: 09/28/16 03:04 09/28/16 03:04 Labs: Short CBC 09/28/16 Range/Units 03:04 WBC 8.7 (4.3-11.1) K/mcL Hgb 12.7 (11.5-15.4) g/dL Hct 39.9 (35.3-44.9) % Plt Count 235 (140-400) K/mcL Neutrophils # 4.9 (1.6-8.9) K/mcL BMP 09/28/16 03:04 Sodium 138 Potassium 3.6 Chloride 103 Carbon Dioxide 27 BUN 23 H Creatinine 0.73 Glucose 261 H Calcium 9.2 - ABG Interpretation ABG results: PT/INR, D-dimer PT 17.3 Seconds (9.4-12.1) H 09/28/16 03:04 Consult Discharge Plan - Plan Referrals: Desi Cornell [Primary Care Provider] -
[2016-09-28] MEDS ORDERED: Furosemide 40 MG TABLET PO SCH (17:00)
[2016-09-28] MEDS: Insulin DETEMIR 100 UNIT/ML X5UNITS SQ SCH (20:57)
[2016-09-29 05:12] LABS: INR 1.4; Prothrombin Time 15.1 Seconds (9.4-12.1)
[2016-09-29 05:45] LABS: Basophils % 0.5 %; Eosinophils # 0.1 K/mcL (0.0-0.6); Eosinophils % 1.6 %; Hematocrit 40.8 % (35.3-44.9); Hemoglobin 13.1 g/dL (11.5-15.4); Immature Granulocytes % 0.5 % (0-4); Lymphocytes # 2.9 K/mcL (0.6-4.6); Lymphocytes % 33.2 %; Mean Corpuscular HGB Conc 32.1 g/dL (31.6-35.5); Mean Corpuscular Hemoglobin 26.5 pg (28.0-33.3); Mean Corpuscular Volume 82.6 fL (83.0-100.0); Mean Platelet Volume 12.1 fL (9.4-12.4); Monocytes # 0.7 K/mcL (0.0-1.3); Monocytes % 7.8 %; Neutrophils # 4.9 K/mcL (1.6-8.9); Platelet Count 238 K/mcL (140-400); Red Blood Count 4.94 M/mcL (3.82-4.97); Red Cell Distribution Width 15.5 % (11.5-14.5); Segmented Neutrophils % 56.4 %
[2016-09-29 05:55] LABS: BUN/Creatinine Ratio 26 (6-26); Blood Urea Nitrogen 20 mg/dL (7-20); Carbon Dioxide 27 mEq/L (19-29); Chloride 102 mEq/L (98-109); Osmolality,Calculated 303 (280-300); Potassium 3.5 mEq/L (3.5-4.5); Sodium 139 mEq/L (136-145); eGFR For African Americans > 60 (> 60); eGFR For Non-African Americans > 60 (> 60)
[2016-09-29 06:07] LABS: Glucose 323 mg/dL (70-99)
--- NOTE | 2016-09-29 07:09 | Venous Imaging Report ---
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 Normal contralateral common femoral vein. Recommendations: After imaging the patient returned to their room. Prelim note in MT. Test completed on 09/27/2016 at 10:30:58 am. Findings Venous Duplex Results: Right: Venous imaging of the lower extremity reveals full patency and normal vessel compressibility of the right common femoral, right superficial femoral, right popliteal, right posterior tibial, right anterior tibial, right peroneal, right great saphenous and right lesser saphenous. Doppler signals in the evaluated veins were normal. Left: Venous imaging of the lower extremity reveals full patency and normal vessel compressibility of the left common femoral. Doppler signals in the evaluated veins were normal. Prior Study: No prior study available for comparison. Lower Extremity Venous Duplex Side Vein Compress Spontaneous Flow Augment Diameter (cm) Depth (cm) Right Common Femoral Normal Yes Phasic Yes Right Superficial Femoral Normal Yes Phasic Yes Right Popliteal Normal Yes Phasic Yes Right Posterior Tibial Normal Yes Phasic Yes Right Anterior Tibial Normal Yes Phasic Yes Right Peroneal Normal Yes Phasic Yes Right Great Saphenous Normal Yes Phasic Yes Right Lesser Saphenous Normal Yes Phasic Yes Left Common Femoral Normal Yes Phasic Yes Updated by Deric Spicer MD on 09/29/2016 7:04:05 AM electronically signed on 09/29/2016 7:04:30 AM with status of Final
[2016-09-29] MEDS ORDERED: *HR* Warfarin 3 MG TABLET PO ONE (07:54)
[2016-09-29] MEDS: Spironolactone 25 MG TABLET PO SCH (08:46)
[2016-09-29] MEDS: Insulin LISPRO 300 UNITS/3 ML VIAL SQ SCH ×2 (08:46→11:30)
[2016-09-29] MEDS: Aspirin Enteric Coated 81 MG Tablet PO SCH (08:46)
[2016-09-29] MEDS: Furosemide 40 MG TABLET PO SCH (08:46)
[2016-09-29] MEDS: amLODIPine 5 MG TABLET PO SCH (08:46)
[2016-09-29 10:45] VITALS: BP 116/77
--- NOTE | 2016-09-29 14:17 | Discharge Summary ---
Date of Encounter: 09/29/16 Time of Encounter: 12:10 - Discharge Diagnosis (1) CHF (congestive heart failure) Priority: Primary Status: Acute Qualifiers: Congestive heart failure type: diastolic Congestive heart failure chronicity: acute on chronic Qualified Code(s): I50.33 - Acute on chronic diastolic (congestive) heart failure (2) Supratherapeutic INR Priority: Primary Status: Resolved (3) COPD (chronic obstructive pulmonary disease) Priority: Secondary Status: Chronic Qualifiers: COPD type: COPD with acute lower respiratory infection Qualified Code(s): J44.0 - Chronic obstructive pulmonary disease with acute lower respiratory infection (4) Atrial fibrillation Priority: Secondary Status: Chronic Qualifiers: Atrial fibrillation type: chronic Qualified Code(s): I48.2 - Chronic atrial fibrillation (5) Diabetes mellitus Priority: Secondary Status: Chronic Qualifiers: Diabetes mellitus type: type 2 Diabetes mellitus complication status: with unspecified complications 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 Qualified Code(s): E11.8 - Type 2 diabetes mellitus with unspecified complications (6) HTN (hypertension) Priority: Secondary Status: Chronic Qualifiers: Hypertension type: essential hypertension Qualified Code(s): I10 - Essential (primary) hypertension (7) Right leg swelling Priority: Secondary Status: Acute - Discharge Medications Prescriptions: DiphenhydraMINE [Benadryl] 1 appl TP QID PRN #1 tube PRN Reason: Itching Home Medications: GlipiZIDE [Glipizide] 10 mg PO BID 05/21/15 [History] Lisinopril [Zestril] 10 mg PO DAILY 05/21/15 [History] Metformin HCl [Glucophage] 1,000 mg PO BID 05/21/15 [History] Metoprolol [Lopressor] 25 mg PO BID 05/21/15 [History] Amlodipine [Norvasc] 5 mg PO DAILY 05/22/15 [History] Aspirin Enteric Coated [Aspirin EC] 81 mg PO DAILY 05/22/15 [History] Omeprazole [PriLOSEC] 20 mg PO DAILY 05/22/15 [History] Spironolactone [Aldactone] 25 mg PO DAILY 05/22/15 [History] Warfarin [Coumadin] 6 mg PO 1800 7 Days 05/26/15 [Rx] Insulin Glargine,Hum.rec.anlog [Lantus Solostar] 40 unit SQ HS 08/01/16 [History ] Oxygen 2 l NS AD 08/01/16 [History] Simvastatin [Zocor] 40 mg PO HS 08/01/16 [History] Oxycodone HCl/Acetaminophen [Percocet 5-325 mg Tablet] 1 each PO DAILY PRN #20 tablet 08/06/16 [Rx] Aclidinium [place] [Tudorza Pressair] 1 puff IH BID 09/24/16 [History] Insulin ASPART [NovoLOG] 10 unit SQ TID 09/24/16 [History] Nystatin Cream [Mycostatin Cream] 1 appl TP BID 09/24/16 [History] DiphenhydraMINE [Benadryl] 1 appl TP QID PRN #1 tube 09/29/16 [Rx] Furosemide [Lasix] 40 mg PO BID #60 09/29/16 [Rx] Allergies/Adverse Reactions: Allergies No Known Allergies Allergy (Verified 09/24/16 21:30) Procedures/tests Complete & Pending: Procedures Performed prior 72 hours Category Date Time Status CT lower leg RT wo con [CT] Stat Cat Scan 09/29/16 12:13 Completed DVT Study [EV venous imaging LE RT] Routine Y 09/27/16 04:58 Completed Date of admission: 09/26/16 15:39 Primary care physician: Desi Cornell Discharging clinician: Byron Del Toro Anticipated date of discharge: 09/29/16 - Patient Status Disposition: Home, Self-Care Condition: Good Functional capacity at discharge: independent ambulation Overall status at discharge: patient is progressing back to baseline - Discharge Instructions Follow Up With: Desi Cornell [Primary Care Provider] - - Diet and Activity Activity: resume usual activities as tolerated Diet: diabetic diet, low fat, low cholesterol, low salt diet Interval History: See below Hospital course: Ms. Jasmine is a 65 year old female with diastolic CHF, Afib, COPD on hoe O2 prn , Morbid Obesity with BMI 46.7 Patient was admitted for management of CHF exacerbation, Supratherapeutic INR Patient with CXR findings of pulmonary edema and self-stated weight gain of ~ 30punds with pedal edema She is seen this morning, with no new complains Since admission, she has been on diuresis with 40mg lasix IV bid, now transitioned to same dose orally She is negative 6.5L balance and respiratory status is back to baseline INR was >5 on admission, Coumadin has been restarted in small increments, INR today is 1.4. She had an episode of right calf swelling inpatient which on exam had an entry point looking like an insect bite. Doppler USS ruled out DVT and Leg CT ruled out a hematoma collection She will be discharged to follow up with PCP She is educated today about following up in INR clinic for IINR check 10/03 and to follow up with PCP with results. Also She is educated to continue with fluid restriction and lasix at same dose, and follow up with PCP for titration with chemistry and weight. She verbalized understanding - Time Spent with Patient Total time spent providing and/or coordinating discharge services: Less than 30 minutes - Constitutional Vitals: Temp Pulse Resp BP Pulse Ox 98.1 F 80 16 116/77 95 09/29/16 10:44 09/29/16 10:44 09/29/16 10:44 09/29/16 10:44 09/29/16 10:44 General appearance: Present: A&O X 3, morbidly obese, pleasant, no acute distress, answers questions appropriately - Head Head exam: Present: atraumatic, normocephalic - Eye Eye exam: Present: PERRL, conjuntiva pink, sclera anicteric Pupils: Present: PERRL - ENT ENT exam: Present: mucous membranes moist - Neck Neck exam general surgery: Present: supple, trachea midline. Absent: lymphadenopathy - Respiratory Respiratory exam: Present: CTAB. Absent: accessory muscle use, rales, rhonchi, wheezes - Cardiovascular Cardiovascular exam: Present: RRR, +S1, +S2. Absent: diastolic murmur, gallop, rubs, systolic murmur - GI/Abdominal GI/Abdominal exam: Present: normal bowel sounds, soft, no peritoneal signs. Absent: distended, tenderness - Extremities Exam Extremities exam: Present: pedal edema (trace edema), warm, radial pulses palpable and symetrical. Absent: calf tenderness, cyanotic - Neurological Exam Neurological exam: Present: CN II-XII intact, oriented X3, no focal deficits. Absent: pronater drift, facial droop, speech deficit - Skin Skin exam: Present: dry
== END 2016-09-29 15:30 | disposition home or self-care (01) | DRG 194 ==
LOC: EMEROO 18:29 → 3BNU 18:29 → SUATTDRO 21:26 → 3BNU 22:29
PROVIDERS: ADMIT Hospitalist; ATTEND Internal Medicine

== ENCOUNTER 2016-10-24 20:54 | Inpatient (IN) ==
[2016-10-24] MEDS ORDERED: methylPREDNISolone 125 MG/2 ML VIAL IVP ONE (21:16)
[2016-10-24] MEDS ORDERED: Ipratropium/Albuterol Neb 3 ML IH ONE (21:16)
[2016-10-24] MEDS ORDERED: Levofloxacin 750 MG/150 ML 750 MG/150 ML BAG IVPB ONE (21:44)
--- NOTE | 2016-10-24 21:44 | Emergency Department Note ---
Disposition Clinical Impression: Acute exacerbation of chronic obstructive airways disease Respiratory failure Qualifiers: Chronicity: acute Respiratory failure complication: hypoxia Qualified Code(s): J96.01 - Acute respiratory failure with hypoxia Disposition: Admitted As Inpatient Referrals: Desi Cornell [Primary Care Provider] - Forms: ED Satisfaction Letter SOB HPI - General Chief Complaint: ED Shortness of Breath/Dyspnea Stated Complaint: SUKUMAR Source: patient, EMS Limitations: no limitations Nursing Notes Reviewed: Yes Vital Signs Reviewed: Yes - History of Present Illness Pt Subjective Complaint: shortness of breath, cough Onset (ago): day(s) (5) Context: recent illness Severity: moderate Consistency/Duration: gradually worsening Improves with: oxygen, rest, bronchodilators Worsens with: lying flat Known history of: COPD Associated symptoms: Reports: cough, wheezing Cough present: Yes Cough Description: Involuntary, Non-Productive Cough Frequency: Intermittent Sputum production: No - Related Data Home Medications Medication Instructions Recorded Confirmed GlipiZIDE [Glipizide] 10 mg PO BID 05/21/15 09/24/16 Lisinopril [Zestril] 10 mg PO DAILY 05/21/15 09/24/16 Metformin HCl [Glucophage] 1,000 mg PO BID 05/21/15 09/24/16 Metoprolol [Lopressor] 25 mg PO BID 05/21/15 09/24/16 Amlodipine [Norvasc] 5 mg PO DAILY 05/22/15 09/24/16 Aspirin Enteric Coated [Aspirin EC] 81 mg PO DAILY 05/22/15 09/24/16 Omeprazole [PriLOSEC] 20 mg PO DAILY 05/22/15 09/24/16 Spironolactone [Aldactone] 25 mg PO DAILY 05/22/15 09/24/16 Insulin Glargine,Hum.rec.anlog 40 unit SQ HS 08/01/16 09/24/16 [Lantus Solostar] Oxygen 2 l NS AD 08/01/16 09/24/16 Simvastatin [Zocor] 40 mg PO HS 08/01/16 09/24/16 Aclidinium Comins [Tudorza 1 puff IH BID 09/24/16 09/24/16 Pressair] Insulin ASPART [NovoLOG] 10 unit SQ TID 09/24/16 09/24/16 Nystatin Cream [Mycostatin Cream] 1 appl TP BID 09/24/16 09/24/16 Previous Rx's Medication Instructions Recorded Warfarin [Coumadin] 6 mg PO 1800 7 Days 05/26/15 Oxycodone HCl/Acetaminophen 1 each PO DAILY PRN #20 tablet 08/06/16 [Percocet 5-325 mg Tablet] DiphenhydraMINE [Benadryl] 1 appl TP QID PRN #1 tube 09/29/16 Furosemide [Lasix] 40 mg PO BID #60 09/29/16 Allergies Allergy/AdvReac Type Severity Reaction Status Date / Time No Known Allergies Allergy Verified 10/24/16 20:57 All systems ED: reviewed and negative except as stated. Constitutional: Reports: weakness. 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 - Social History Smoking Status: Never smoker Smokeless Tobacco Status: No Alcohol use: Reports: none Drug use: Reports: none Physical Exam - General Limitations: no limitations General appearance: alert, other - Head Head exam: atraumatic, normocephalic, normal inspection - Eye Eye exam: Present: normal appearance, PERRL, EOMI - Expanded Eye Exam Pupils: Left: reactive - ENT ENT exam: normal exam, normal oropharynx, mucous membranes moist - Expanded ENT Exam External ear exam: Present: normal external inspection Mouth exam: Present: normal external inspection Teeth exam: Present: normal inspection Throat exam: Present: normal inspection - Neck Neck exam: Present: normal inspection, full ROM, trachea midline - Chest Chest inspection: Present: normal inspection, symmetric chest wall rise - Respiratory Respiratory exam: Present: wheezes (Scattered wheezes and rhonchi), accessory muscle use (Mild), prolonged expiratory phase - Cardiovascular Cardiovascular exam: Present: regular rate, normal rhythm, normal heart sounds - Abdominal Exam Abdominal exam: Present: soft, Non-Tender. Absent: tenderness, distention, guarding, rebound, rigidity - Extremities Exam Extremities exam: Present: normal inspection, full ROM. Absent: tenderness, pedal edema - Expanded Upper Extremity Exam Shoulder exam: Present: normal inspection, full ROM Arm exam: Present: normal inspection, full ROM Elbow exam: Present: normal inspection, full ROM Forearm/Wrist exam: Present: normal inspection, full ROM Hand exam: Present: normal inspection, full ROM Vascular exam: Normal: capillary refill, radial pulse - Expanded Lower Extremity Exam Hip/Pelvis exam: Present: normal inspection, full ROM Upper leg exam: Present: normal inspection, full ROM Knee exam: Present: normal inspection, full ROM Lower leg exam: Present: normal inspection, full ROM Ankle exam: Present: normal inspection, full ROM Foot/toe exam: Present: normal inspection, full ROM Neurovascular/Tendon exam: Absent: motor deficit, sensory deficit, tendon deficit - Back Exam Back exam: Present: normal inspection, full ROM. Absent: tenderness - Neurological Exam Neurological exam: Present: alert, oriented X3 - Expanded Neurological Exam Patient oriented to: Present: person, place, time Coma Scale Eye Opening: Spontaneous Coma Scale Motor Response: Obeys Commands Coma Scale Verbal Response: Oriented Coma Scale Total: 15 - Psychiatric Psychiatric exam: Present: normal affect, normal mood - Skin Skin exam: Present: warm, dry, intact, normal color Course Vital Signs Temperature 98.2 F 10/24/16 20:57 Pulse Rate 76 10/24/16 20:57 Respiratory Rate 26 10/24/16 20:57 Blood Pressure 144/80 10/24/16 20:57 O2 Sat by Pulse Oximetry 89 L 10/24/16 20:57 Temperature 98.2 F 10/24/16 20:57 Pulse Rate 78 10/24/16 22:16 Respiratory Rate 20 10/24/16 22:16 Blood Pressure 140/75 10/24/16 22:16 O2 Sat by Pulse Oximetry 92 L 10/24/16 22:16 Oxygen Delivery Oxygen Delivery Nasal Cannula Shortness of Breath/Dyspnea - Differential Diagnosis Likely: acute exacerbation of chronic obstructive airways disease, congestive heart failure, pneumonia, pulmonary embolism, pneumothorax, arrhythmia - Medical Records Medical records reviewed: Yes I reviewed the patient's medical records. - Lab Data Lab results reviewed: Yes I reviewed the patient's lab results. Result diagrams: 10/24/16 22:14 10/24/16 22:14 Lab Results 10/24/16 10/24/16 10/24/16 Range/Units 22:14 22:14 22:14 WBC 10.7 (4.3-11.1) K/mcL RBC 4.95 (3.82-4.97) M/mcL Hgb 12.9 (11.5-15.4) g/dL Hct 39.8 (35.3-44.9) % MCV 80.4 L (83.0-100.0) fL MCH 26.1 L (28.0-33.3) pg MCHC 32.4 (31.6-35.5) g/dL RDW 15.6 H (11.5-14.5) % Plt Count 177 (140-400) K/mcL MPV 12.3 (9.4-12.4) fL Immature Gran % 0.5 (0-4) % Seg Neutrophils % 60.9 % Lymphocytes % 28.4 % Monocytes % 9.2 % Eosinophils % 0.7 % Basophils % 0.3 % Neutrophils # 6.5 (1.6-8.9) K/mcL Lymphocytes # 3.0 (0.6-4.6) K/mcL Monocytes # 1.0 (0.0-1.3) K/mcL Eosinophils # 0.1 (0.0-0.6) K/mcL Basophils # 0.0 (0.0-0.2) K/mcL Immature Plt Fraction 10.4 H (1.1-6.1) % PT (9.4-12.1) Seconds INR APTT (26.0-36.0) Seconds Sodium 137 (136-145) mEq/L Potassium 3.9 (3.5-4.5) mEq/L Chloride 105 (98-109) mEq/L Carbon Dioxide 20 (19-29) mEq/L BUN 13 (7-20) mg/dL Creatinine 0.71 (0.57-1.11) mg/dL Est GFR ( Amer) > 60 (> 60) Est GFR (Non-Af Amer) > 60 (> 60) BUN/Creatinine Ratio 18 (6-26) Glucose 220 H (70-99) mg/dL Calculated Osmolality 291 (280-300) Calcium 9.3 (8.6-10.8) mg/dL Troponin I 0.01 (0-0.03) ng/mL B-Natriuretic Peptide (0-100) pg/mL 10/24/16 10/24/16 Range/Units 22:14 22:14 WBC (4.3-11.1) K/mcL RBC (3.82-4.97) M/mcL Hgb (11.5-15.4) g/dL Hct (35.3-44.9) % MCV (83.0-100.0) fL MCH (28.0-33.3) pg MCHC (31.6-35.5) g/dL RDW (11.5-14.5) % Plt Count (140-400) K/mcL MPV (9.4-12.4) fL Immature Gran % (0-4) % Seg Neutrophils % % Lymphocytes % % Monocytes % % Eosinophils % % Basophils % % Neutrophils # (1.6-8.9) K/mcL Lymphocytes # (0.6-4.6) K/mcL Monocytes # (0.0-1.3) K/mcL Eosinophils # (0.0-0.6) K/mcL Basophils # (0.0-0.2) K/mcL Immature Plt Fraction (1.1-6.1) % PT 60.6 H* (9.4-12.1) Seconds INR 5.3 H* APTT 50.3 H (26.0-36.0) Seconds Sodium (136-145) mEq/L Potassium (3.5-4.5) mEq/L Chloride (98-109) mEq/L Carbon Dioxide (19-29) mEq/L BUN (7-20) mg/dL Creatinine (0.57-1.11) mg/dL Est GFR ( Amer) (> 60) Est GFR (Non-Af Amer) (> 60) BUN/Creatinine Ratio (6-26) Glucose (70-99) mg/dL Calculated Osmolality (280-300) Calcium (8.6-10.8) mg/dL Troponin I (0-0.03) ng/mL B-Natriuretic Peptide 98 (0-100) pg/mL - Radiology Data Radiology results reviewed: Yes I reviewed the patient's radiology results.
[2016-10-24 22:25] LABS: Basophils % 0.3 %; Eosinophils # 0.1 K/mcL (0.0-0.6); Eosinophils % 0.7 %; Hematocrit 39.8 % (35.3-44.9); Hemoglobin 12.9 g/dL (11.5-15.4); Immature Granulocytes % 0.5 % (0-4); Immature Platelets 10.4 % (1.1-6.1); Lymphocytes % 28.4 %; Mean Corpuscular HGB Conc 32.4 g/dL (31.6-35.5); Mean Corpuscular Hemoglobin 26.1 pg (28.0-33.3); Mean Corpuscular Volume 80.4 fL (83.0-100.0); Mean Platelet Volume 12.3 fL (9.4-12.4); Monocytes % 9.2 %; Neutrophils # 6.5 K/mcL (1.6-8.9); Platelet Count 177 K/mcL (140-400); Red Blood Count 4.95 M/mcL (3.82-4.97); Red Cell Distribution Width 15.6 % (11.5-14.5); Segmented Neutrophils % 60.9 %
[2016-10-24 22:33] LABS: Activated Partial Thrombo Time 50.3 Seconds (26.0-36.0)
[2016-10-24 22:36] LABS: BUN/Creatinine Ratio 18 (6-26); Blood Urea Nitrogen 13 mg/dL (7-20); Calcium 9.3 mg/dL (8.6-10.8); Carbon Dioxide 20 mEq/L (19-29); Chloride 105 mEq/L (98-109); Glucose 220 mg/dL (70-99); Osmolality,Calculated 291 (280-300); Potassium 3.9 mEq/L (3.5-4.5); Sodium 137 mEq/L (136-145); eGFR For African Americans > 60 (> 60); eGFR For Non-African Americans > 60 (> 60)
[2016-10-24 22:37] LABS: INR 5.3; Prothrombin Time 60.6 Seconds (9.4-12.1)
[2016-10-25] MEDS ORDERED: Furosemide 40 MG/4 ML VIAL IVP ONE (01:46)
[2016-10-25] MEDS ORDERED: Naloxone 0.4 MG/ML INJ IVP PRN (02:26)
--- NOTE | 2016-10-25 03:40 | Internal Med History&Physical ---
Date of Encounter: 10/25/16 Time of Encounter: 01:00 Assessment and Plan (1) Acute exacerbation of CHF (congestive heart failure) Current visit: Yes Status: Acute Pt has normal BNP, but clinically suspicious for CHF exacerbation. Treat with IV lasix. Low sodium diet; monitor daily weights, intake and output monitoring. Qualifiers: Congestive heart failure type: diastolic Qualified Code(s): I50.33 - Acute on chronic diastolic (congestive) heart failure (2) Respiratory failure Current visit: Yes Status: Acute Pt uses home oxygen intermittently. Acute resp failure likely due to CHF exacerbation. Continue supplemental O2. Qualifiers: Chronicity: acute on chronic Respiratory failure complication: hypoxia Qualified Code(s): J96.21 - Acute and chronic respiratory failure with hypoxia (3) COPD (chronic obstructive pulmonary disease) Current visit: No Status: Chronic Pt denies h/o COPD. But she reports that she uses nebulized bronchodilators at home. Pt is wheezy, but I suspect is due to peribronchial cuffing from the pulmonary edema. Duo-nebs. I do not think she needs steroids or antibiotics at this time. start mucinex. Qualifiers: COPD type: COPD with acute lower respiratory infection Qualified Code(s): J44.0 - Chronic obstructive pulmonary disease with acute lower respiratory infection (4) Diabetes mellitus Current visit: No Status: Chronic Continue home dose of insulin and start sliding scale insulin. Expect some hyperglycemia from the solumedrol she received in the ER, last night. Hold metformin. 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 Hold amlodipine. Qualifiers: Hypertension type: essential hypertension Qualified Code(s): I10 - Essential (primary) hypertension (6) Supratherapeutic INR Current visit: Yes Status: Acute Hold warfarin. (7) AUGUSTINE (obstructive sleep apnea) Current visit: Yes Status: Chronic Pt does not use CPAP at home. I have counseled her to use CPAP at home and its importance (8) Atrial fibrillation Current visit: No Status: Chronic Pt has paced rhythm now. On warfarin with supratherapeutic INR Qualifiers: Atrial fibrillation type: chronic Qualified Code(s): I48.2 - Chronic atrial fibrillation Internal Medicine - H&P: HPI History of present illness: Ms. Jasmine is a 65 year old female with past medical history of atrial fibrillation on warfarin, diastolic congestive heart failure, DVT, diabetes, hyperlipidemia, s/p pacemaker with AICD, chronic respiratory failure on intermittent home oxygen, h/o AUGUSTINE, but not tolerated CPAP in the past and not using it. Patient presents with progressively worsening shortness of breath a few days. Initially it was shortness of breath on exertion, but now she is short of breath at rest. She reports orthopnea. She was sleeping in a chair at home. She also reports gaining weight, but not able to quantify. She was trying to take more Lasix but it did not work. She had multiple breathing treatments at home, and in the emergency department, without significant improvement in shortness of breath. She reports cough or significant expectoration. She denies chest pain, fever, chills, nausea, vomiting, dysuria , hematuria, bowel problems. She was evaluated in the emergency department and was suspected to have acute exhibition of COPD. She was given levofloxacin, Solu-Medrol, DuoNeb. She is admitted to hospitalist service for further workup and management. Past Med Surg Social Fam HX - Past Medical History Medical history: atrial fibrillation, cancer, CHF, COPD, DVT, diabetes, GERD, hyperlipidemia, hypertension Psychiatric history: no psych history - Past Surgical History Surgical History: , cholecystectomy, pacemaker/AICD - Social History Smoking Status: Never smoker Smokeless Tobacco Status: No Alcohol use: none Drug use: none - Family History Mother Adopted: No Living Status: Hx Family Cardiac Disorders: No Hx Family Respiratory Disorders: No Hx Family Cancer: Yes (colon cancer) Hx Family GI Disorders: Yes Hx Family Endocrine Disorder: No Hx Family Neuromuscular Disorders: No Hx Family Neurologic Disorders: No Hx Family HEENT Disorders: No Hx Family Autoimmune Disorders: No Father Adopted: No Living Status: Hx Family Cardiac Disorders: Yes (HTN) Hx Family Respiratory Disorders: No Hx Family Cancer: No Hx Family GI Disorders: No Hx Family Endocrine Disorder: No Hx Family Neuromuscular Disorders: No Hx Family Neurologic Disorders: Yes (stroke) Hx Family HEENT Disorders: No Hx Family Autoimmune Disorders: No Internal Medicine - H&P: Meds GlipiZIDE [Glipizide] 10 mg PO BID 05/21/15 [History] Lisinopril [Zestril] 10 mg PO DAILY 05/21/15 [History] Metformin HCl [Glucophage] 1,000 mg PO BID 05/21/15 [History] Metoprolol [Lopressor] 25 mg PO BID 05/21/15 [History] Amlodipine [Norvasc] 5 mg PO DAILY 05/22/15 [History] Aspirin Enteric Coated [Aspirin EC] 81 mg PO DAILY 05/22/15 [History] Omeprazole [PriLOSEC] 20 mg PO DAILY 05/22/15 [History] Spironolactone [Aldactone] 25 mg PO DAILY 05/22/15 [History] Insulin Glargine,Hum.rec.anlog [Lantus Solostar] 20 unit SQ HS 08/01/16 [History ] Oxygen 2 l NS AD 08/01/16 [History] Simvastatin [Zocor] 40 mg PO HS 08/01/16 [History] Oxycodone HCl/Acetaminophen [Percocet 5-325 mg Tablet] 1 each PO DAILY PRN #20 tablet 08/06/16 [Rx] Aclidinium Durand [Tudorza Pressair] 1 puff IH BID 09/24/16 [History] Insulin ASPART [NovoLOG] 10 unit SQ TID 09/24/16 [History] Nystatin Cream [Mycostatin Cream] 1 appl TP BID 09/24/16 [History] Furosemide [Lasix] 40 mg PO BID #60 09/29/16 [Rx] Warfarin [Coumadin] 6 mg PO 2200 10/25/16 [History] Allergies No Known Allergies Allergy (Verified 10/24/16 20:57) All Systems PM: A 10-system review of systems was performed and is negative for pertinent findings except as documented above in the HPI. - Constitutional Vitals: Temp Pulse Resp BP Pulse Ox 97.6 F 78 20 91/56 93 L 10/25/16 03:25 10/25/16 03:25 10/25/16 03:25 10/25/16 03:25 10/25/16 03:25 Internal Med - H&P Results - Labs CBC & Chem 7: 10/24/16 22:14 10/25/16 03:56 - EKG Data EKG comments: Paced rhythm 10/25/16 07:39 - Impressions ITS Impressions Chest X-Ray 10/24/16 21:16 IMPRESSION: Cardiomegaly with findings of mild congestive heart failure. D/ / Yevgeniy Patel MD / Yevgeniy Patel MD Interpreting Provider: Yevgeniy Patel MD - VTE Reasons for not Prescribing Prophylaxis: Not indicated-Anticoagulated or INR therapeutic
[2016-10-25] MEDS: Benzonatate 100 MG CAPSULE PO PRN ×2 (04:14→11:41)
[2016-10-25 04:58] LABS: INR 6.5; Prothrombin Time 74.4 Seconds (9.4-12.1)
[2016-10-25 05:10] LABS: BUN/Creatinine Ratio 22 (6-26); Blood Urea Nitrogen 19 mg/dL (7-20); Calcium 8.9 mg/dL (8.6-10.8); Carbon Dioxide 15 mEq/L (19-29); Chloride 103 mEq/L (98-109); Glucose 474 mg/dL (70-99); Osmolality,Calculated 299 (280-300); Potassium 4.2 mEq/L (3.5-4.5); Sodium 133 mEq/L (136-145); eGFR For African Americans > 60 (> 60); eGFR For Non-African Americans > 60 (> 60)
[2016-10-25] MEDS ORDERED: D5% in Water 1,000 ML IV PRN (07:28)
[2016-10-25] MEDS ORDERED: Ipratropium/Albuterol Neb 3 ML IH PRN (07:28)
[2016-10-25] MEDS ORDERED: Dextrose Gel 15 GM PO PRN ×2 (07:28)
[2016-10-25] MEDS ORDERED: *HR* Dextrose 50 % in Water (Syg) 50 ML SYRINGE IVP PRN (07:28)
[2016-10-25] MEDS ORDERED: NON-FORMULARY MEDICATION 1 EACH EACH (Oxygen [Oxygen] 2 L) NS SCH (07:30)
[2016-10-25] MEDS: Spironolactone 25 MG TABLET PO SCH (08:27)
[2016-10-25] MEDS: Aspirin Enteric Coated 81 MG Tablet PO SCH (08:30)
[2016-10-25] MEDS: Insulin LISPRO 300 UNITS/3 ML VIAL SQ SCH ×6 (08:31→18:00)
[2016-10-25] MEDS: Furosemide 40 MG/4 ML VIAL IVP SCH (08:34)
[2016-10-25] MEDS: *HR* OxyCODONE/APAP 5/325 TABLET PO PRN (08:39)
[2016-10-25] MEDS: Nystatin Cream 15 GM TUBE TP SCH ×2 (08:45→21:24)
[2016-10-25] MEDS ORDERED: amLODIPine 5 MG TABLET PO SCH (09:00)
[2016-10-25] MEDS ORDERED: Albuterol 2.5 MG/3 ML NEBULIZER IH PRN (14:35)
--- NOTE | 2016-10-25 14:47 | Internal Med Progress Note ---
Date of Encounter: 10/25/16 Time of Encounter: 14:39 - Assessment and plan (1) HCAP (healthcare-associated pneumonia) Current Visit: Yes Status: Acute (2) Acute exacerbation of chronic obstructive airways disease Current Visit: Yes Status: Acute (3) AUGUSTINE (obstructive sleep apnea) Current Visit: Yes Status: Chronic (4) CHF (congestive heart failure) Current Visit: Yes Status: Chronic Qualifiers: Congestive heart failure type: diastolic Congestive heart failure chronicity: acute on chronic Qualified Code(s): I50.33 - Acute on chronic diastolic (congestive) heart failure (5) Elevated INR Current Visit: Yes Status: Acute (6) Atrial fibrillation Current Visit: Yes Status: Chronic Qualifiers: Atrial fibrillation type: chronic Qualified Code(s): I48.2 - Chronic atrial fibrillation (7) Diabetes mellitus Current Visit: Yes Status: Chronic Qualifiers: Diabetes mellitus type: type 2 Diabetes mellitus complication status: with hyperglycemia 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: 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 penitentiary use Qualified Code(s): E11.65 - Type 2 diabetes mellitus with hyperglycemia (8) HLD (hyperlipidemia) Current Visit: Yes Status: Chronic Qualifiers: Hyperlipidemia type: unspecified Qualified Code(s): E78.5 - Hyperlipidemia , unspecified (9) HTN (hypertension) Current Visit: Yes Status: Chronic Qualifiers: Hypertension type: essential hypertension Qualified Code(s): I10 - Essential (primary) hypertension - Subjective Interval history: 65 Y/O F with PMH of CHFpEF, COPD on home O2, DM, HTN, Afib on Coumadin, AUGUSTINE Patient is being managed for progressive shortness of breath, which is associated with cough She had been started on Z-pack by PCP but symptoms got worse , therefore she came to the ER She does not have fever or chills She is being managed for COPDE However, BNP is WNL and patient's chart reveal about 7 pounds weiht loss since discharge in 09/2016, she also denied worsening pedal edema She was wheezing diffusely and coughing non-stop at the time of review A chest CT was ordered by me and reveals findings suggestive of bronchopneumonia , stable adenoma and small airways obstructive disease I have started on empiric antibiotics for HCAP-blood cultures were drawn on admission Sputum culture has been ordered as well as respiratory panel Due to the recurrent nature of pneumonia , will consult pulmonary Diuretics will be continued INR today 6.5 from 5 on admission, will hold Coumadin - Constitutional Vitals: Temp Pulse Resp BP Pulse Ox 98.6 F 82 16 107/65 93 L 10/25/16 11:23 10/25/16 11:23 10/25/16 11:23 10/25/16 11:23 10/25/16 11:23 General appearance: Present: mild distress, A&O X 3, pleasant - Head Head exam: Present: atraumatic, normocephalic - Eye Eye exam: Present: PERRL, conjuntiva pink, sclera anicteric Pupils: Present: PERRL - Neck Neck exam general surgery: Present: supple, trachea midline. Absent: lymphadenopathy - Respiratory Respiratory exam: Present: prolonged expiratory phase, wheezes - Cardiovascular Cardiovascular exam: Present: irregular rhythm, +S1, +S2. Absent: diastolic murmur, gallop, JVD, rubs, +S3, systolic murmur - GI/Abdominal GI/Abdominal exam: Present: normal bowel sounds, soft, no peritoneal signs. Absent: distended, tenderness - Extremities Exam Extremities exam: Present: warm, radial pulses palpable and symetrical. Absent : calf tenderness, cyanotic, pedal edema - Neurological Exam Neurological exam: Present: CN II-XII intact, oriented X3, no focal deficits. Absent: pronater drift, facial droop, speech deficit - Skin Skin exam: Present: dry, intact Internal Medicine: Result - Labs CBC & Chem 7: 10/24/16 22:14 10/25/16 03:56 Labs: BMP 10/25/16 03:56 Sodium 133 L Potassium 4.2 Chloride 103 Carbon Dioxide 15 L BUN 19 Creatinine 0.85 Glucose 474 H Calcium 8.9 - ABG Interpretation ABG results: PT/INR, D-dimer PT 74.4 Seconds (9.4-12.1) H* 10/25/16 03:56 - Impressions Impressions Chest CT 10/25/16 10:21 IMPRESSION: There has been interval resolution of airspace consolidation in the left lower lobe. There are now multifocal ground-glass and small irregular opacities, most pronounced throughout the left lower lobe, having a bronchopneumonia pattern. There is associated bronchial wall thickening, and mosaic lung attenuation suggesting small airways obstructive disease. There is stable mediastinal adenopathy D/ / Axel Esparza MD / Axel Esparza MD Interpreting Provider: Axel Esparza MD - VTE Reasons for not Prescribing Prophylaxis: Not indicated-Anticoagulated or INR therapeutic Consult Discharge Plan - Plan Referrals: Desi Cornell [Primary Care Provider] -
[2016-10-25] MEDS: Ipratropium/Albuterol Neb 3 ML IH SCH ×3 (15:09→23:55)
[2016-10-25 17:01] LABS: Adenovirus Not Detected (Not Detect); Bordetella Pertussis Not Detected (Not Detect); Chlamydophila pneumoniae Not Detected (Not Detect); Coronavirus 229E Not Detected (Not Detect); Coronavirus HKU1 Not Detected (Not Detect); Coronavirus NL63 Not Detected (Not Detect); Coronavirus OC43 Not Detected (Not Detect); Human Metapneumovirus ***DETECTED*** (Not Detect); Human Rhinovirus/Enterovirus Not Detected (Not Detect); Influenza A Subtype 2009 H1 Not Detected (Not Detect); Influenza A Untypeable Not Detected (Not Detect); Influenza B Not Detected (Not Detect); Mycoplasma pneumoniae Not Detected (Not Detect); Parainfluenza Virus 1 Not Detected (Not Detect); Parainfluenza Virus 2 Not Detected (Not Detect); Parainfluenza Virus 3 Not Detected (Not Detect); Parainfluenza Virus 4 Not Detected (Not Detect); Respiratory Syncytial Virus Not Detected (Not Detect)
[2016-10-25] MEDS ORDERED: Warfarin perPT PO PRN (18:00)
[2016-10-25] MEDS: Cefepime HCl 2,000 MG in D5% in Water (Mini-Bag+) 100 ML IVPB SCH (18:00)
[2016-10-25] MEDS ORDERED: Warfarin perPT PO SCH (18:00)
[2016-10-25] MEDS: Insulin DETEMIR 100 UNIT/ML X5UNITS SQ SCH (21:24)
[2016-10-26] MEDS: Cefepime HCl 2,000 MG in D5% in Water (Mini-Bag+) 100 ML IVPB SCH (00:39)
[2016-10-26] MEDS: *HR* OxyCODONE/APAP 5/325 TABLET PO PRN (00:49)
[2016-10-26] MEDS: Ipratropium/Albuterol Neb 3 ML IH SCH ×5 (03:44→20:16)
[2016-10-26 04:37] LABS: Basophils % 0.3 %; Eosinophils % 0.2 %; Hematocrit 40.3 % (35.3-44.9); Hemoglobin 12.9 g/dL (11.5-15.4); Immature Granulocytes % 0.5 % (0-4); Lymphocytes # 2.6 K/mcL (0.6-4.6); Lymphocytes % 22.1 %; Mean Corpuscular Hemoglobin 25.7 pg (28.0-33.3); Mean Corpuscular Volume 80.3 fL (83.0-100.0); Mean Platelet Volume 12.5 fL (9.4-12.4); Monocytes # 0.9 K/mcL (0.0-1.3); Monocytes % 7.3 %; Neutrophils # 8.2 K/mcL (1.6-8.9); Platelet Count 195 K/mcL (140-400); Red Blood Count 5.02 M/mcL (3.82-4.97); Red Cell Distribution Width 15.7 % (11.5-14.5); Segmented Neutrophils % 69.6 %
[2016-10-26 04:42] LABS: Prothrombin Time 79.5 Seconds (9.4-12.1)
[2016-10-26 04:43] LABS: INR 6.9
[2016-10-26 05:02] LABS: BUN/Creatinine Ratio 41 (6-26); Calcium 9.5 mg/dL (8.6-10.8); Carbon Dioxide 19 mEq/L (19-29); Chloride 102 mEq/L (98-109); Glucose 352 mg/dL (70-99); Osmolality,Calculated 300 (280-300); Sodium 134 mEq/L (136-145); eGFR For African Americans > 60 (> 60); eGFR For Non-African Americans > 60 (> 60)
[2016-10-26 05:03] LABS: Blood Urea Nitrogen 36 mg/dL (7-20)
[2016-10-26] MEDS: predniSONE 20 MG TABLET PO SCH (08:49)
[2016-10-26] MEDS: Aspirin Enteric Coated 81 MG Tablet PO SCH (08:49)
[2016-10-26] MEDS: Furosemide 40 MG/4 ML VIAL IVP SCH (08:50)
[2016-10-26] MEDS: Spironolactone 25 MG TABLET PO SCH (08:50)
[2016-10-26] MEDS: Insulin LISPRO 300 UNITS/3 ML VIAL SQ SCH ×6 (08:50→16:32)
[2016-10-26] MEDS: Benzonatate 100 MG CAPSULE PO PRN ×2 (08:53→18:07)
[2016-10-26] MEDS: Nystatin Cream 15 GM TUBE TP SCH ×2 (08:55→20:03)
--- NOTE | 2016-10-26 09:38 | Pulmonology Consult Note ---
Date of Encounter: 10/26/16 Time of Encounter: 08:20 Assessment and Plan (1) Dyspnea Current Visit: Yes Status: Acute Dyspnea and other respiratory symptoms in this particular individual are likely multifactorial in etiology. The patient is a lifelong nonsmoker but does have respiratory symptoms that suggest airway reactive disease/asthma. She does have underlying diastolic heart dysfunction and pulmonary hypertension which is likely secondary but clinically she does not have decompensated acute heart failure which could also account for dyspnea and wheeze (at least based by my evaluation). I do not believe the patient is actively infected and therefore antibiotic has been discontinued. For treatment of respiratory symptoms likely due to airway reactive disease, I agree with use of systemic steroids and bronchodilator therapy. For long-term management, the patient may benefit from use of combination inhaled steroid/ LABSA product. Current home medication includes long-acting muscarinic agent and this is also acceptable. Pulmonary function studies could be performed with and without bronchodilator to better define the presence severity of suspected airflow obstruction. In reference to pulmonary hypertension, I believe this is likely secondary to diastolic heart dysfunction and underlying untreated sleep apnea. I do not believe the patient has other etiologies for pulmonary hypertension and thus pulmonary hypertension is likely secondary to WHO group II and III etiologies. In reference to the patient's abnormal CT scan, mediastinal adenopathy noted on the current film was present on the older films as well seemingly is unchanged and is likely reactive. The parenchymal findings of mosaicism and small patchy nodular changes are likely due to air trapping from airway disease and bronchiolitis (small airway disease). 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 I reviewed my impressions and suggestions with the patient and her spouse. Think it is debatable whether right heart catheterization (if not previously performed) we will necessarily impact on the long-term management of the patient. Clinically, she does not have chronic thromboembolic disease and utilizes long-term anticoagulation therapy given atrial fibrillation. Right heart catheterization can be performed I believe safely but in essence I think it will verify the fact the patient has "postcapillary pulmonary hypertension". Qualifiers: Dyspnea type: shortness of breath Qualified Code(s): R06.02 - Shortness of breath Code(s): R06.00 - Dyspnea, unspecified SNOMED Code(s): 497358139 History of Present Illness Reason for consult: dyspnea, cough, abnormal CXR/CT Chief complaint: Dyspnea, cough, abnormal CT scan of the chest History of present illness: Since a 65-year-old female lifelong nonsmoker who was admitted to the hospital with complaints of progressive exertional breath dyspnea, chest congestion, nonproductive cough and pronounced wheezing. Apparently, she has been hospitalized on multiple occasions since the fall of last year with similar complaints. During her most recent hospitalization, based on the clinical evaluation which included chest imaging, the patient was thought to have pneumonia and hence received therapy directed towards treatment of the same. Furthermore, during prior hospitalization, cardiac evaluation suggested the presence of pulmonary hypertension and eventually, the patient was referred to [facility] pulmonary hypertension clinic. Both the patient and spouse are uncertain of the upshot of that evaluation and there is currently no documentation to support if heart catheterization was performed to verify the presence of pulmonary hypertension. The patient relates the onset of breathlessness respiratory symptoms approximately 2 or 3 years ago. There is no well established family history of pulmonary disease, patient did not have pulmonary illness as a child, she has no well established history of atopy. Her only other possible well-established pulmonary history is that of sleep apnea however she is noncompliant with use of CPAP. The patient notes provocation of cough and chest congestion and wheeze with changes in temperature weather humidity particularly under hot humid environmental conditions. She uncertain of which medications she has utilized in the past on a trial basis for treatment of respiratory symptoms but currently utilizes a once a day inhaler and when necessary albuterol. Past Med Surg Social Fam HX - Past Medical History Medical history: atrial fibrillation, cancer, CHF, COPD, DVT, diabetes, GERD, hyperlipidemia, hypertension Psychiatric history: no psych history - Past Surgical History Surgical History: , cholecystectomy, pacemaker/AICD - Social History Smoking Status: Never smoker Smokeless Tobacco Status: No Alcohol use: none Drug use: none - Family History Mother Adopted: No Living Status: Age at : 74 Hx Family Cardiac Disorders: No Hx Family Respiratory Disorders: No Hx Family Cancer: Yes (colon cancer) Hx Family GI Disorders: Yes Hx Family Endocrine Disorder: No Hx Family Neuromuscular Disorders: No Hx Family Neurologic Disorders: No Hx Family HEENT Disorders: No Hx Family Autoimmune Disorders: No Father Adopted: No Living Status: Age at : 76 Hx Family Cardiac Disorders: Yes (HTN) Hx Family Respiratory Disorders: No Hx Family Cancer: No Hx Family GI Disorders: No Hx Family Endocrine Disorder: No Hx Family Neuromuscular Disorders: No Hx Family Neurologic Disorders: Yes (stroke) Hx Family HEENT Disorders: No Hx Family Autoimmune Disorders: No Medications and Allergies GlipiZIDE [Glipizide] 10 mg PO BID 05/21/15 [History] Lisinopril [Zestril] 10 mg PO DAILY 05/21/15 [History] Metformin HCl [Glucophage] 1,000 mg PO BID 05/21/15 [History] Metoprolol [Lopressor] 25 mg PO BID 05/21/15 [History] Amlodipine [Norvasc] 5 mg PO DAILY 05/22/15 [History] Aspirin Enteric Coated [Aspirin EC] 81 mg PO DAILY 05/22/15 [History] Omeprazole [PriLOSEC] 20 mg PO DAILY 05/22/15 [History] Spironolactone [Aldactone] 25 mg PO DAILY 05/22/15 [History] Insulin Glargine,Hum.rec.anlog [Lantus Solostar] 20 unit SQ HS 08/01/16 [History ] Oxygen 2 l NS AD PRN 08/01/16 [History] Simvastatin [Zocor] 40 mg PO HS 08/01/16 [History] Oxycodone HCl/Acetaminophen [Percocet 5-325 mg Tablet] 1 each PO DAILY PRN #20 tablet 08/06/16 [Rx] Aclidinium [place] [Tudorza Pressair] 1 puff IH BID 09/24/16 [History] Insulin ASPART [NovoLOG] 10 unit SQ TID 09/24/16 [History] Nystatin Cream [Mycostatin Cream] 1 appl TP BID 09/24/16 [History] Furosemide [Lasix] 40 mg PO BID #60 09/29/16 [Rx] Warfarin [Coumadin] 6 mg PO 2200 10/25/16 [History] Allergies No Known Allergies Allergy (Verified 10/25/16 10:51) All Systems: A 10-system review of systems was performed and is negative for pertinent findings except as documented above in the HPI. - Constitutional Constitutional: as per HPI - Cardiovascular Cardiovascular: as per HPI - Respiratory Respiratory: as per HPI Physical Examination Vital Signs: Vital Signs, Last 4 Hours Temp Pulse Resp BP Pulse Ox 10/26/16 07:46 18 97 10/26/16 07:16 97.3 F L 79 16 120/72 97 General appearance: other (Moderately obese female, vitals reviewed) ENT: oropharynx moist Mallampati (class): 2 Neck: no lymphadenopathy Effort: mildly labored Inspection: other (Abundant soft tissue structures) Auscultation: bilateral: diminished breath sounds, wheezes Cardiovascular: irregular rhythm, other (Loud P2) Gastrointestinal: normoactive bowel sounds, non-distended Integumentary: normal Extremities: no cyanosis, no edema normal mental status, non-focal exam Results - Laboratory Findings CBC and BMP: 10/26/16 03:38 10/26/16 03:38 PT/INR, D-dimer PT 79.5 Seconds (9.4-12.1) H* 10/26/16 03:38 Abnormal lab findings: Abnormal lab results WBC 11.7 K/mcL (4.3-11.1) H 10/26/16 03:38 RBC 5.02 M/mcL (3.82-4.97) H 10/26/16 03:38 MCV 80.3 fL (83.0-100.0) L 10/26/16 03:38 MCH 25.7 pg (28.0-33.3) L 10/26/16 03:38 RDW 15.7 % (11.5-14.5) H 10/26/16 03:38 MPV 12.5 fL (9.4-12.4) H 10/26/16 03:38 Immature Plt Fraction 10.4 % (1.1-6.1) H 10/24/16 22:14 PT 79.5 Seconds (9.4-12.1) H* 10/26/16 03:38 INR 6.9 H* 10/26/16 03:38 APTT 50.3 Seconds (26.0-36.0) H 10/24/16 22:14 Sodium 134 mEq/L (136-145) L 10/26/16 03:38 BUN 36 mg/dL (7-20) H D 10/26/16 03:38 BUN/Creatinine Ratio 41 (6-26) H 10/26/16 03:38 Glucose 352 mg/dL (70-99) H 10/26/16 03:38 POC Glucose 250 (58-89) H 10/25/16 20:31 Human Metapneumovirus DETECTED (Not Detect) A 10/25/16 15:00 - Microbiology Findings Microbiology Findings: Microbiology, Last 48 Hours 10/25/16 17:10 Sputum Culture - Preliminary Sputum - Clinical Findings Intake & Output: Intake & Output 10/25/16 10/26/16 10/26/16 23:59 07:59 15:59 Intake Total 580 / 580 100 / 100 Balance 580 / 580 100 / 100 Weight 114.668 kg Consult Discharge Plan - Plan Referrals: Desi Cornell [Primary Care Provider] -
[2016-10-26] MEDS ORDERED: Acetaminophen 325 MG TABLET PO PRN (13:19)
[2016-10-26] MEDS ORDERED: *HR* Phytonadione 5 MG TABLET PO ONE (13:24)
--- NOTE | 2016-10-26 14:39 | Internal Med Progress Note ---
Date of Encounter: 10/26/16 Time of Encounter: 13:00 - Assessment and plan (1) HCAP (healthcare-associated pneumonia) Current Visit: Yes Status: Suspected Assessment and plan: Continue Levoflox Follow sputum cultures and escalate/de-escalate prn (2) Acute exacerbation of chronic obstructive airways disease Current Visit: Yes Status: Acute Assessment and plan: Secondary to viral RTI Chest CT read as suggestive of bronchopneumonia Continue duonebs q4hr RTC Albuterol q2hr prn Continue po prednsione Continue supplemental O2 Pulmonary eval appreciated Patient may need oxygen qualification upon discharge (3) AUGUSTINE (obstructive sleep apnea) Current Visit: Yes Status: Chronic Assessment and plan: Not on CPAP at home (4) CHF (congestive heart failure) Current Visit: Yes Status: Chronic Assessment and plan: Not in exacerbation Continue lasix at current dose Continue home meds Qualifiers: Congestive heart failure type: diastolic Congestive heart failure chronicity: acute on chronic Qualified Code(s): I50.33 - Acute on chronic diastolic (congestive) heart failure (5) Elevated INR Current Visit: Yes Status: Acute Assessment and plan: Vit K 2.5mg po Humidify O2 to prevent nasal dryness and bleeds Monitor closely (6) Atrial fibrillation Current Visit: Yes Status: Chronic Qualifiers: Atrial fibrillation type: chronic Qualified Code(s): I48.2 - Chronic atrial fibrillation (7) Diabetes mellitus Current Visit: Yes Status: Chronic Assessment and plan: Hyperglycemia persistent due to steroids Basal and Prandial insulin has been increased, monitor closely Qualifiers: Diabetes mellitus type: type 2 Diabetes mellitus complication status: with hyperglycemia Diabetes mellitus snf insulin use: 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 Qualified Code(s): E11.65 - Type 2 diabetes mellitus with hyperglycemia (8) HLD (hyperlipidemia) Current Visit: Yes Status: Chronic Qualifiers: Hyperlipidemia type: unspecified Qualified Code(s): E78.5 - Hyperlipidemia , unspecified (9) HTN (hypertension) Current Visit: Yes Status: Chronic Qualifiers: Hypertension type: essential hypertension Qualified Code(s): I10 - Essential (primary) hypertension (10) Bronchiolitis Current Visit: Yes Status: Acute Assessment and plan: Management as in COPDE (11) Human metapneumovirus as the cause of diseases classified elsewhere Current Visit: Yes Status: Acute Assessment and plan: Droplet and contact precautions - Subjective Interval history: 65 Y/O F with PMH of CHFpEF, COPD on home O2, DM, HTN, Afib on Coumadin, AUGUSTINE Patient is being managed for progressive shortness of breath, which is associated with cough She had been started on Z-pack by PCP but symptoms got worse , therefore she came to the ER She does not have fever or chills She is being managed for COPDE Patient is seen at bedside, continues to wheeze diffusely and severe bouts of cough spells She is on oxygen Respiratory panel today positive for human metapneumovirus, droplet isolation initiated Teletray Operator has reviewed patient, input appreciated Patient had leukocytosis this morning, possibly from steroid use She remains afebrile Will restart on Levofloxacin Sputum culture is pending, will follow INR remains elevated >6, will give po Vitamin K - Constitutional Vitals: Temp Pulse Resp BP Pulse Ox 97.4 F L 78 20 113/67 97 10/26/16 11:33 10/26/16 11:33 10/26/16 11:33 10/26/16 11:33 10/26/16 11:33 General appearance: Present: mild distress, A&O X 3, pleasant - Head Head exam: Present: atraumatic, normocephalic - Eye Eye exam: Present: PERRL, conjuntiva pink, sclera anicteric Pupils: Present: PERRL - Neck Neck exam general surgery: Present: supple, trachea midline. Absent: lymphadenopathy - Respiratory Respiratory exam: Present: wheezes, tachypnea. Absent: accessory muscle use, rales, rhonchi - Cardiovascular Cardiovascular exam: Present: irregular rhythm, +S1, +S2. Absent: diastolic murmur, gallop, rubs, systolic murmur - GI/Abdominal GI/Abdominal exam: Present: normal bowel sounds, soft, no peritoneal signs. Absent: distended, tenderness - Extremities Exam Extremities exam: Present: warm, radial pulses palpable and symetrical. Absent : calf tenderness, cyanotic, pedal edema - Neurological Exam Neurological exam: Present: CN II-XII intact, oriented X3, no focal deficits. Absent: pronater drift, facial droop, speech deficit - Skin Skin exam: Present: dry, intact Internal Medicine: Result - Labs CBC & Chem 7: 10/26/16 03:38 10/26/16 03:38 Labs: Short CBC 10/26/16 Range/Units 03:38 WBC 11.7 H (4.3-11.1) K/mcL Hgb 12.9 (11.5-15.4) g/dL Hct 40.3 (35.3-44.9) % Plt Count 195 (140-400) K/mcL Neutrophils # 8.2 (1.6-8.9) K/mcL BMP 10/26/16 03:38 Sodium 134 L Potassium 4.0 Chloride 102 Carbon Dioxide 19 BUN 36 H D Creatinine 0.87 Glucose 352 H Calcium 9.5 - ABG Interpretation ABG results: PT/INR, D-dimer PT 79.5 Seconds (9.4-12.1) H* 10/26/16 03:38 - VTE Reasons for not Prescribing Prophylaxis: Not indicated-Anticoagulated or INR therapeutic Consult Discharge Plan - Plan Referrals: Desi Cornell [Primary Care Provider] -
[2016-10-26] MEDS: Levofloxacin 750 MG/150 ML 750 MG/150 ML BAG IVPB SCH (15:46)
[2016-10-26] MEDS ORDERED: *HR* OxyCODONE/APAP 5/325 TABLET PO PRN (17:40)
[2016-10-26] MEDS: Chloraseptic Spray 177 ML BOTTLE MM PRN (20:02)
[2016-10-26] MEDS: Insulin DETEMIR 100 UNIT/ML X5UNITS SQ SCH (21:34)
--- NOTE | 2016-10-26 23:19 | Electrocardiograph Report ---
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
[2016-10-27] MEDS: Ipratropium/Albuterol Neb 3 ML IH SCH ×5 (00:34→15:48)
[2016-10-27] MEDS: Chloraseptic Spray 177 ML BOTTLE MM PRN (05:25)
[2016-10-27 06:13] LABS: Basophils % 0.3 %; Eosinophils # 0.1 K/mcL (0.0-0.6); Eosinophils % 0.5 %; Hematocrit 38.9 % (35.3-44.9); Hemoglobin 12.4 g/dL (11.5-15.4); Immature Granulocytes % 0.4 % (0-4); Lymphocytes # 3.5 K/mcL (0.6-4.6); Lymphocytes % 35.8 %; Mean Corpuscular HGB Conc 31.9 g/dL (31.6-35.5); Mean Corpuscular Hemoglobin 25.5 pg (28.0-33.3); Mean Platelet Volume 11.9 fL (9.4-12.4); Monocytes # 0.7 K/mcL (0.0-1.3); Monocytes % 7.1 %; Neutrophils # 5.4 K/mcL (1.6-8.9); Platelet Count 186 K/mcL (140-400); Red Blood Count 4.86 M/mcL (3.82-4.97); Red Cell Distribution Width 15.5 % (11.5-14.5); Segmented Neutrophils % 55.9 %
[2016-10-27 06:16] LABS: INR 3.2; Prothrombin Time 36.2 Seconds (9.4-12.1)
[2016-10-27 06:18] LABS: Activated Partial Thrombo Time 37.2 Seconds (26.0-36.0)
[2016-10-27 06:24] LABS: BUN/Creatinine Ratio 33 (6-26); Calcium 9.2 mg/dL (8.6-10.8); Carbon Dioxide 20 mEq/L (19-29); Chloride 105 mEq/L (98-109); Glucose 236 mg/dL (70-99); Osmolality,Calculated 299 (280-300); Potassium 3.5 mEq/L (3.5-4.5); Sodium 139 mEq/L (136-145); eGFR For African Americans > 60 (> 60); eGFR For Non-African Americans > 60 (> 60)
[2016-10-27 06:31] LABS: Blood Urea Nitrogen 23 mg/dL (7-20)
[2016-10-27 06:35] LABS: Large Platelets Present (Not Present); Platelet Estimate Normal (Normal); Reactive Lymphocytes Present (Not Present); Smudge Cells Present (Not Present)
[2016-10-27] MEDS: predniSONE 20 MG TABLET PO SCH (07:53)
[2016-10-27] MEDS: Furosemide 40 MG/4 ML VIAL IVP SCH (07:54)
[2016-10-27] MEDS: Aspirin Enteric Coated 81 MG Tablet PO SCH (07:54)
[2016-10-27] MEDS: Spironolactone 25 MG TABLET PO SCH (07:54)
[2016-10-27] MEDS: Levofloxacin 750 MG/150 ML 750 MG/150 ML BAG IVPB SCH (07:55)
[2016-10-27] MEDS: Insulin LISPRO 300 UNITS/3 ML VIAL SQ SCH ×6 (08:11→16:54)
--- NOTE | 2016-10-27 09:44 | Pulmonology Progress Note ---
Date of Encounter: 10/27/16 Time of Encounter: 08:00 Assessment and Plan (1) Pulmonary hypertension due to left heart disease Current Visit: Yes Status: Chronic I explained to patient I suspect this is secondary to diastolic heart failure and also could be related to untreated AUGUSTINE. Patient could have RHC as outpatient and that will give us more information. (2) Pulmonary hypertension, secondary Current Visit: Yes Status: Chronic As I mentioned above. I have explained to patient treatment of AUGUSTINE will be extremely important, that can be addressed as outpatient. (3) Acute exacerbation of chronic obstructive airways disease Current Visit: Yes Status: Acute Patient on appropriate treatment and I'll add Symbicort. Patient iwll need PFT as out patient. (4) AUGUSTINE (obstructive sleep apnea) Current Visit: Yes Status: Chronic This is not treated, patient didn't tolerate the treatment, I believe she will need a different mask, again this is outpatient plan. Subjective Principal diagnosis: Shortness of breath Interval history: Patient denies any significant worsening of her breathing and no major overnight events. Objective PUL Vital signs: Last Vital Signs Temp 97.7 F 10/27/16 08:08 Pulse 77 10/27/16 08:08 Resp 18 10/27/16 08:08 BP 138/79 10/27/16 08:08 Pulse Ox 95 10/27/16 09:21 General appearance: no acute distress Eyes: nonicteric Mallampati (class): 3 Neck: supple Effort: normal Auscultation: left: clear, right: rhonchi Cardiovascular: irregular rhythm Gastrointestinal: normoactive bowel sounds Extremities: no cyanosis, no edema normal mental status, non-focal exam mood appropriate Results - Laboratory Findings CBC and BMP: 10/27/16 05:38 10/27/16 05:38 PT/INR, D-dimer PT 36.2 Seconds (9.4-12.1) H D 10/27/16 05:38 Abnormal lab findings: Abnormal lab results MCV 80.0 fL (83.0-100.0) L 10/27/16 05:38 MCH 25.5 pg (28.0-33.3) L 10/27/16 05:38 RDW 15.5 % (11.5-14.5) H 10/27/16 05:38 Reactive Lymphocytes Present (Not Present) A 10/27/16 05:38 Smudge Cells Present (Not Present) A 10/27/16 05:38 Large Platelets Present (Not Present) A 10/27/16 05:38 Immature Plt Fraction 10.4 % (1.1-6.1) H 10/24/16 22:14 PT 36.2 Seconds (9.4-12.1) H D 10/27/16 05:38 APTT 37.2 Seconds (26.0-36.0) H 10/27/16 05:38 BUN 23 mg/dL (7-20) H D 10/27/16 05:38 BUN/Creatinine Ratio 33 (6-26) H 10/27/16 05:38 Glucose 236 mg/dL (70-99) H 10/27/16 05:38 POC Glucose 232 (58-89) H 10/27/16 08:06 Human Metapneumovirus DETECTED (Not Detect) A 10/25/16 15:00 - Microbiology Findings Microbiology Findings: Microbiology, Last 48 Hours 10/25/16 17:10 Sputum Culture - Final Sputum - Diagnostic Findings CT scan - chest: report reviewed, image reviewed - Clinical Findings Intake & Output: Intake & Output 10/26/16 10/27/16 10/27/16 23:59 07:59 15:59 Intake Total 100 / 100 Balance 100 / 100 - VTE Reasons for not Prescribing Prophylaxis: Not indicated-Anticoagulated or INR therapeutic Consult Discharge Plan - Plan Referrals: Desi Cornell [Primary Care Provider] -
[2016-10-27] MEDS: Nystatin Cream 15 GM TUBE TP SCH (09:50)
[2016-10-27] MEDS ORDERED: Budesonide/Formoterol 160/4.5 MDI IH SCH (10:00)
[2016-10-27 11:23] VITALS: BP 112/63
[2016-10-27] MEDS ORDERED: Acetaminophen 325 MG TABLET PO PRN (13:55)
--- NOTE | 2016-10-27 17:25 | Discharge Summary ---
Date of Encounter: 10/27/16 Time of Encounter: 13:30 - Discharge Diagnosis (1) HCAP (healthcare-associated pneumonia) Priority: Primary Status: Suspected (2) Acute exacerbation of chronic obstructive airways disease Priority: Primary Status: Acute (3) AUGUSTINE (obstructive sleep apnea) Priority: Secondary Status: Chronic (4) CHF (congestive heart failure) Priority: Primary Status: Chronic Qualifiers: Congestive heart failure type: diastolic Congestive heart failure chronicity: acute on chronic Qualified Code(s): I50.33 - Acute on chronic diastolic (congestive) heart failure (5) Elevated INR Priority: Primary Status: Acute (6) Atrial fibrillation Priority: Secondary Status: Chronic Qualifiers: Atrial fibrillation type: chronic Qualified Code(s): I48.2 - Chronic atrial fibrillation (7) Diabetes mellitus Priority: Secondary Status: Chronic Qualifiers: Diabetes mellitus type: type 2 Diabetes mellitus complication status: with hyperglycemia Diabetes mellitus intermediate teacher insulin use: without intermediate teacher use Qualified Code(s): E11.65 - Type 2 diabetes mellitus with hyperglycemia (8) HLD (hyperlipidemia) Priority: Secondary Status: Chronic Qualifiers: Hyperlipidemia type: unspecified Qualified Code(s): E78.5 - Hyperlipidemia , unspecified (9) HTN (hypertension) Priority: Secondary Status: Chronic Qualifiers: Hypertension type: essential hypertension Qualified Code(s): I10 - Essential (primary) hypertension (10) Bronchiolitis Priority: Primary Status: Acute (11) Human metapneumovirus as the cause of diseases classified elsewhere Priority: Primary Status: Acute - Discharge Medications Prescriptions: Ipratropium/Albuterol Neb [Duoneb] 3 ml IH [id number] #12 inhsol GuaiFENesin/Dextromethorphan [Robitussin/Dm] 10 ml PO Q6HR #120 ml Benzonatate [Tessalon] 100 mg PO TID PRN #12 capsule PRN Reason: Cough Budesonide/Formoterol 160/4.5 [Symbicort 160/4.5] 2 puff IH BIDR #2 inhaler Levofloxacin 750 mg PO DAILY #4 tablet Warfarin [Coumadin] 4 mg PO 1800 #4 tablet Home Medications: GlipiZIDE [Glipizide] 10 mg PO BID 05/21/15 [History] Lisinopril [Zestril] 10 mg PO DAILY 05/21/15 [History] Metformin HCl [Glucophage] 1,000 mg PO BID 05/21/15 [History] Metoprolol [Lopressor] 25 mg PO BID 05/21/15 [History] Amlodipine [Norvasc] 5 mg PO DAILY 05/22/15 [History] Aspirin Enteric Coated [Aspirin EC] 81 mg PO DAILY 05/22/15 [History] Omeprazole [PriLOSEC] 20 mg PO DAILY 05/22/15 [History] Spironolactone [Aldactone] 25 mg PO DAILY 05/22/15 [History] Insulin Glargine,Hum.rec.anlog [Lantus Solostar] 20 unit SQ HS 08/01/16 [History ] Oxygen 2 l NS AD PRN 08/01/16 [History] Simvastatin [Zocor] 40 mg PO HS 08/01/16 [History] Oxycodone HCl/Acetaminophen [Percocet 5-325 mg Tablet] 1 each PO DAILY PRN #20 tablet 08/06/16 [Rx] Aclidinium Lawrence [Tudorza Pressair] 1 puff IH BID 09/24/16 [History] Insulin ASPART [NovoLOG] 10 unit SQ TID 09/24/16 [History] Nystatin Cream [Mycostatin Cream] 1 appl TP BID 09/24/16 [History] Furosemide [Lasix] 40 mg PO BID #60 09/29/16 [Rx] Benzonatate [Tessalon] 100 mg PO TID PRN #12 capsule 10/27/16 [Rx] Budesonide/Formoterol 160/4.5 [Symbicort 160/4.5] 2 puff IH BIDR #2 inhaler [Rx] GuaiFENesin/Dextromethorphan [Robitussin/Dm] 10 ml PO Q6HR #120 ml 10/27/16 [Rx] Ipratropium/Albuterol Neb [Duoneb] 3 ml IH [id number] #12 inhsol 10/27/16 [Rx] Levofloxacin 750 mg PO DAILY #4 tablet 10/27/16 [Rx] PredniSONE 40 mg PO DAILY #6 tablet 10/27/16 [Rx] Warfarin [Coumadin] 4 mg PO 1800 #4 tablet 10/27/16 [Rx] Allergies/Adverse Reactions: Allergies No Known Allergies Allergy (Verified 10/25/16 10:51) Procedures/tests Complete & Pending: Procedures Performed prior 72 hours Category Date Time Status CT chest w/o contrast [CT chest wo con] [CT] Stat Cat Scan 10/25/16 10:21 Completed Date of admission: 10/25/16 02:26 Primary care physician: Desi Cornell Consults: 10/25/16 14:37 Consult to Pulmonology [CONS] Routine Consulting Provider: [facility] Reason for Consult: Recurrent pneumonia, COPDE. Call Completed: No Discharging clinician: Byron Del Toro Anticipated date of discharge: 10/27/16 - Patient Status Disposition: Home, Self-Care Condition: Fair Functional capacity at discharge: independent ambulation Overall status at discharge: patient is progressing back to baseline - Discharge Instructions Follow Up With: Desi Cornell [Primary Care Provider] - 10/30/16 1:45 pm (follow up appointment) Bruce Young MD [Partnered Physician] - 11/10/16 11:30 am (follow up appointment) - Diet and Activity Activity: resume usual activities as tolerated, wear oxygen at all times Diet: diabetic diet, low fat, low cholesterol, low salt diet Interval History: See below Hospital course: Ms. Jasmine is a 65 year old female She has a PMH of CHFpEF, COPD on home O2, DM, HTN, Afib on Coumadin, AUGUSTINE not on CPAP by choice She was admitted and managed for acute on chronic hypoxic respiratory failure secondary to COPDE and Human metapneumovirus bronchiolitis. She was also managed for Acute on Chronic diastolic CHF exacerbation She was managed with Prednisone, Albuterol/Ipratropium nebs, Empiric antibiotics and IV furosemide Work up showed no leukocytosis, she was afebrile, INR was >6 on admission, BNP was WNL Chest CT showed possible bronchiolitis, bronchopneumonia and small airway disease Pulmonary was consulted and recommendations were followed She is seen this morning, coughing spells and wheezing has improved She has lost considerable weight since admission and has adequate urinary output She also had supratherapuetic INR which was treated with PO Vitamin K . INR today is 3.2 Patient is stable to discharge home to follow up with Pulmonary and PCP She was seen by Pulmonary team inpatient and will need follow up for AUGUSTINE, PFT as outpatient and routine follow up patient is educated to resume her Coumadin at 4mg tomorrow, (prescription provided) and we have confirmed her appointment with her PCP for INR check on 10/30 She is educated to be on home oxygen always until review by Pulmonary Continue Levofloxacin po at home She has received both pneumococcal and Influenza vaccine She verbalized understanding of plan of care - Time Spent with Patient Total time spent providing and/or coordinating discharge services: Less than 30 minutes - Constitutional Vitals: Temp Pulse Resp BP Pulse Ox 97.3 F L 77 18 112/63 92 L 10/27/16 11:22 10/27/16 11:22 10/27/16 15:49 10/27/16 11:22 10/27/16 15:49 General appearance: Present: A&O X 3, morbidly obese, pleasant, no acute distress - Head Head exam: Present: atraumatic, normocephalic - Eye Eye exam: Present: PERRL, conjuntiva pink, sclera anicteric Pupils: Present: PERRL - Neck Neck exam general surgery: Present: supple, trachea midline. Absent: lymphadenopathy - Respiratory Respiratory exam: Present: CTAB. Absent: accessory muscle use, rales, rhonchi, wheezes - Cardiovascular Cardiovascular exam: Present: RRR, +S1, +S2. Absent: diastolic murmur, gallop, rubs, systolic murmur - GI/Abdominal GI/Abdominal exam: Present: normal bowel sounds, soft, no peritoneal signs. Absent: distended, tenderness - Extremities Exam Extremities exam: Present: warm, radial pulses palpable and symetrical. Absent : calf tenderness, cyanotic, pedal edema - Neurological Exam Neurological exam: Present: CN II-XII intact, oriented X3, no focal deficits. Absent: pronater drift, facial droop, speech deficit - Skin Skin exam: Present: dry, intact - VTE Reasons for not Prescribing Prophylaxis: Not indicated-Anticoagulated or INR therapeutic
[2016-10-28] MEDS ORDERED: levoFLOXacin 750 MG TABLET PO SCH (09:00)
== END 2016-10-27 19:35 | disposition home or self-care (01) | DRG 140 ==
LOC: 3BNU 20:54 → EMEROO 20:54 → 3BNU 10-25 00:15 → 2ANU 10-26 15:07
PROVIDERS: ADMIT Family Medicine; ATTEND Internal Medicine

== ENCOUNTER 2018-05-18 21:27 | Inpatient (IN) ==
--- NOTE | 2018-05-18 21:57 | Emergency Department Note ---
Disposition Clinical Impression: Ascites Qualifiers: Ascites type: other type Qualified Code(s): R18.8 - Other ascites Liver cirrhosis Qualifiers: Hepatic cirrhosis type: unspecified hepatic cirrhosis Ascites presence: with ascites Qualified Code(s): K74.60 - Unspecified cirrhosis of liver; R18.8 - Other ascites Fluid overload Qualifiers: Hypervolemia type: other Qualified Code(s): E87.79 - Other fluid overload Disposition: Admitted As Inpatient Condition: Fair General Adult HPI - General Chief complaint: ED Abdominal Pain Stated complaint: "My Livers are killing me" Time Seen by Provider: 05/18/18 21:45 Nursing Notes Reviewed: Yes Vital Signs Reviewed: Yes - History of Present Illness HPI Narrative: 67-year-old female presents emergency department with concern for generalized abdominal pain, but worsening in the right upper quadrant. Patient is recent diagnosis of liver cirrhosis. Patient states that she does not know why. Denies any drinking or IV drug abuse. Patient reports that she is having increasing abdominal swelling as well as lower some swelling as well. Denies any chest pain, pressure, tightness. Denies any fevers. Denies any urinary frequency, urgency, dysuria. Pain Scale: 10 - Related Data Home Medications Medication Instructions Recorded Confirmed Lisinopril [Zestril] 5 mg PO DAILY 05/21/15 02/26/17 Metformin HCl [Glucophage] 1,000 mg PO BID 05/21/15 02/26/17 Metoprolol [Lopressor] 25 mg PO BID 05/21/15 02/26/17 glipiZIDE [Glipizide] 10 mg PO BID 05/21/15 02/26/17 Amlodipine [Norvasc] 5 mg PO DAILY 05/22/15 02/26/17 Aspirin Enteric Coated [Aspirin EC] 81 mg PO DAILY 05/22/15 02/26/17 Spironolactone [Aldactone] 25 mg PO DAILY 05/22/15 02/26/17 Insulin Glargine,Hum.rec.anlog 20 unit SQ HS 08/01/16 02/26/17 [Lantus Solostar] Oxygen 2 l NS AD PRN 08/01/16 02/26/17 Simvastatin [Zocor] 40 mg PO HS 08/01/16 02/26/17 Insulin ASPART [NovoLOG] 20 unit SQ TID 09/24/16 02/26/17 Nystatin Cream [Mycostatin Cream] 1 appl TP BID 09/24/16 02/26/17 Enoxaparin [Lovenox] 120 mg SQ Q12HR 02/26/17 02/26/17 Potassium Chloride [Klor-Con 10] 2 tab PO DAILY 02/26/17 02/26/17 Warfarin [Coumadin] 6 mg PO 1800 02/26/17 02/26/17 Previous Rx's Medication Instructions Recorded Oxycodone HCl/Acetaminophen 1 each PO DAILY PRN #20 tablet 08/06/16 [Percocet 5-325 mg Tablet] Furosemide [Lasix] 40 mg PO BID #60 09/29/16 Budesonide/Formoterol 160/4.5 2 puff IH BIDR #2 inhaler 10/27/16 [Symbicort 160/4.5] Allergies Allergy/AdvReac Type Severity Reaction Status Date / Time No Known Allergies Allergy Verified 10/25/16 10:51 All systems ED: reviewed and negative except as stated. Review of Systems: As Per HPI Constitutional: Denies: fever Cardiovascular: Denies: chest pain Respiratory: Denies: cough, dyspnea Gastrointestinal: Reports: abdominal pain, nausea, vomiting Genitourinary: Denies: urgency, dysuria, frequency Musculoskeletal: Denies: back pain, neck pain Integumentary: Denies: rash Past Medical History - Past Medical History Medical history: Reports: atrial fibrillation, cancer, CHF, COPD, DVT, diabetes , GERD, hyperlipidemia, hypertension Surgical history: Reports: , cholecystectomy, pacemaker/AICD Psychiatric history: Reports: no psych history [employer] history: Reports: non-contributory - Social History Smoking Status: Never smoker Smokeless Tobacco Status: No Alcohol use: Reports: none Drug use: Reports: none Physical Exam - General General appearance: alert, in no apparent distress - Head Head exam: normocephalic - Eye Eye exam: Absent: scleral icterus - ENT ENT exam: normal oropharynx - Neck Neck exam: Present: trachea midline - Chest Chest inspection: Present: symmetric chest wall rise - Respiratory Respiratory exam: Present: normal lung sounds bilaterally. Absent: respiratory distress, accessory muscle use - Cardiovascular Cardiovascular exam: Present: regular rate, normal rhythm, normal heart sounds - Abdominal Exam Abdominal exam: Present: tenderness, distention. Absent: guarding, rebound, rigidity Abdominal tenderness: Present: RUQ, moderate - Extremities Exam Extremities exam: Present: normal capillary refill - Back Exam Back exam: Present: full ROM - Neurological Exam Neurological exam: Present: alert, oriented X3 - Psychiatric Psychiatric exam: Present: normal affect, normal mood - Skin Skin exam: Present: warm, dry, intact, normal color Course Vital Signs Temperature 97.4 F L 05/18/18 21:35 Pulse Rate 75 05/18/18 21:35 Respiratory Rate 24 05/18/18 21:35 Blood Pressure 134/84 05/18/18 21:35 O2 Sat by Pulse Oximetry 94 05/18/18 21:35 Temperature 97.4 F L 05/18/18 21:46 Pulse Rate 80 05/19/18 01:12 Respiratory Rate 20 05/19/18 01:12 Blood Pressure 144/89 05/19/18 01:12 O2 Sat by Pulse Oximetry 95 05/19/18 01:12 Oxygen Delivery Oxygen Delivery Nasal Cannula Medical Decision Making - [facility] Narrative Medical decision making narrative: 67-year-old female presents emergency department with concern for worsening abdominal distention, pain, nausea, vomiting, function and edema in the setting of liver cirrhosis. At this time, patient is afebrile. She is hemodynamically stable. Do not suspect SBP. Patient has an INR 3.5 and she is on warfarin for atrial fibrillation. Patient most likely could benefit from paracentesis. CT scan of abdomen and pelvis was obtained due to patient's abdominal pain. And reveals cirrhosis with small to moderate amount of ascites. There is also bilateral pleural effusions and small to moderate pericardial effusion as her reported by radiology. No concern for cardiac tamponade at this time as patient clinically is not having chest pain, is not hypotensive. Dr. mitchell agreed to accept the patient. Patient hemodynamically stable and not in any acute distress at time of admission to hospital. Patient was given pain medication as well as Zofran here in the emergency department. Abdomen/Pelvis CT 05/19/18 22:22 IMPRESSION: 1. Cirrhosis with a small to moderate amount of ascites. 2. Bilateral pleural effusions and small to moderate pericardial effusion. D/ / Flo Villafana MD / Flo Villafana MD Interpreting Provider: Flo Villafana MD - Lab Data Result diagrams: 05/18/18 22:49 05/18/18 22:49 Lab Results 05/18/18 05/18/18 05/18/18 Range/Units 22:49 22:49 22:56 WBC 9.4 (4.3-11.1) K/mcL RBC 5.17 H (3.82-4.97) M/mcL Hgb 13.5 (11.5-15.4) g/dL Hct 41.9 (35.3-44.9) % MCV 81.0 L (83.0-100.0) fL MCH 26.1 L (28.0-33.3) pg MCHC 32.2 (31.6-35.5) g/dL RDW 15.2 H (11.5-14.5) % Plt Count 241 (140-400) K/mcL MPV 12.2 (9.4-12.4) fL Immature Gran % 0.3 (0-4) % Seg Neutrophils % 71.7 % Lymphocytes % 19.6 % Monocytes % 7.6 % Eosinophils % 0.5 % Basophils % 0.3 % Neutrophils # 6.7 (1.6-8.9) K/mcL Lymphocytes # 1.8 (0.6-4.6) K/mcL Monocytes # 0.7 (0.0-1.3) K/mcL Eosinophils # 0.1 (0.0-0.6) K/mcL Basophils # 0.0 (0.0-0.2) K/mcL PT 39.7 H (9.4-12.1) Seconds INR 3.5 Sodium 134 L (136-145) mEq/L Potassium 4.0 (3.5-5.1) mEq/L Chloride 104 (98-107) mEq/L Carbon Dioxide 18 L (23-29) mEq/L BUN 23 (8-23) mg/dL Creatinine 0.77 (0.60-1.20) mg/dL Est GFR ( Amer) > 60 (> 60) Est GFR (Non-Af Amer) > 60 (> 60) BUN/Creatinine Ratio 30 H (6-26) Glucose 211 H (70-105) mg/dL Calculated Osmolality 288 (280-300) Calcium 9.3 (8.6-10.3) mg/dL Total Bilirubin 1.9 H (0.3-1.0) mg/dL AST 12 L (13-39) Units/L ALT 8 (7-52) Units/L Alkaline Phosphatase 75 (34-104) Units/L Troponin I < 0.03 (< 0.04) ng/mL Serum Total Protein 6.5 (6.4-8.9) g/dL Albumin 3.7 (3.5-5.7) g/dL Globulin 2.8 (2.4-3.5) g/dL Albumin/Globulin Ratio 1.3 (1.1-2.2) Lipase 63 (11-82) Units/L - EKG Data EKG #1 EKG attestation: Yes I reviewed and interpreted this EKG. EKG results narrative: 23:06 Ventricular paced rhythm.
[2018-05-18] MEDS ORDERED: 0.9 % Sodium Chloride 1,000 ML IVC ONE (22:12)
[2018-05-18] MEDS ORDERED: Ondansetron 4 MG/2 ML VIAL IVP ONE (22:12)
[2018-05-18] MEDS ORDERED: *HR* FentaNYL (PF) 100 MCG/2 ML VIAL IVP ONE (22:23)
[2018-05-18] MEDS ORDERED: Isovue-370 500 ML INFUS..BTL IV ONE (22:23)
[2018-05-18 23:22] LABS: Alanine Aminotransferase 8 Units/L (7-52); Albumin 3.7 g/dL (3.5-5.7); Albumin/Globulin Ratio 1.3 (1.1-2.2); Alkaline Phosphatase 75 Units/L (34-104); Aspartate Amino Transferase 12 Units/L (13-39); BUN/Creatinine Ratio 30 (6-26); Bilirubin,Total 1.9 mg/dL (0.3-1.0); Blood Urea Nitrogen 23 mg/dL (8-23); Calcium 9.3 mg/dL (8.6-10.3); Carbon Dioxide 18 mEq/L (23-29); Chloride 104 mEq/L (98-107); Globulin 2.8 g/dL (2.4-3.5); Glucose 211 mg/dL (70-105); Lipase 63 Units/L (11-82); Osmolality,Calculated 288 (280-300); Sodium 134 mEq/L (136-145); Total Protein 6.5 g/dL (6.4-8.9); Troponin I < 0.03 ng/mL (< 0.04); eGFR For Non-African Americans > 60 (> 60)
[2018-05-18 23:33] LABS: Basophils % 0.3 %; Eosinophils # 0.1 K/mcL (0.0-0.6); Eosinophils % 0.5 %; Hematocrit 41.9 % (35.3-44.9); Hemoglobin 13.5 g/dL (11.5-15.4); Immature Granulocytes % 0.3 % (0-4); Lymphocytes # 1.8 K/mcL (0.6-4.6); Lymphocytes % 19.6 %; Mean Corpuscular HGB Conc 32.2 g/dL (31.6-35.5); Mean Corpuscular Hemoglobin 26.1 pg (28.0-33.3); Mean Platelet Volume 12.2 fL (9.4-12.4); Monocytes # 0.7 K/mcL (0.0-1.3); Monocytes % 7.6 %; Neutrophils # 6.7 K/mcL (1.6-8.9); Platelet Count 241 K/mcL (140-400); Red Blood Count 5.17 M/mcL (3.82-4.97); Red Cell Distribution Width 15.2 % (11.5-14.5); Segmented Neutrophils % 71.7 %
[2018-05-18 23:41] LABS: INR 3.5; Prothrombin Time 39.7 Seconds (9.4-12.1)
[2018-05-19] MEDS ORDERED: *HR* Morphine Immed Rel 30 MG TABLET PO STA (01:18)
[2018-05-19 01:33] LABS: Bilirubin,Urine Moderate (Negative); Blood,Urine Negative (Negative); Clarity,Urine Clear (Clear); Color,Urine Dark Yellow (Yellow); Glucose,Urine (UA) Normal (Normal); Ketones,Urine 15 mg/dL (Negative); Leukocyte Esterase,Urine Small (Negative); Nitrite,Urine Negative (Negative); PH,Urine 5.5 pH Units (5.0-8.0); Protein,Urine 100 mg/dL (Neg-Trace); Specific Gravity,Urine > 1.030 (1.010-1.025); Urobilinogen,Urine Normal (Normal)
[2018-05-19 01:36] LABS: Bacteria,Urine None Seen per hpf (None-Few); Squamous Epithelial Cell,Urine Many per lpf (None-Few); WBC,Urine 50-100 per hpf (0-3)
[2018-05-19 01:43] LABS: Hyaline Casts,Urine Few per lpf (None-Few)
[2018-05-19] MEDS ORDERED: Naloxone 0.4 MG/ML INJ IVP PRN (04:51)
[2018-05-19] MEDS ORDERED: Dextrose Gel 15 GM/37.5 ML TUBE PO PRN ×2 (04:51)
[2018-05-19] MEDS ORDERED: D5% in Water 1,000 ML IVC PRN (04:51)
[2018-05-19] MEDS ORDERED: *HR* Dextrose 50 % in Water (Syg) 50 ML SYRINGE IVP PRN (04:51)
--- NOTE | 2018-05-19 05:13 | Internal Med History&Physical ---
Date of Encounter: 05/19/18 Time of Encounter: 04:00 Internal Medicine - H&P: HPI Chief complaint: abdominal pain; shorntess of breath; chest pain Admitted From: Emergency Dept Plans for Post Hospital Care: Home History of present illness: Ms. Jasmine is a 67 year old female who presents with complaints of abdominal pain and cramping, worsening abdominal distention, shortness of breath, chest pain/tightness. Symptoms started a few days ago and have progressively worsened the last 24 hours. She has had some subjective fevers and chills but no night sweats. She had recent EGD performed at [facility] in [place] and was just told by the cast iron dipper there that she had cirrhosis. She has never been diagnosed with cirrhosis before. Because of worsening symptoms and new diagnosis of cirrhosis, she came to the ER today for the above complaints. Work-up in ER revealed patient to have ascites, and she was admitted for further workup and care. Upon my assessment of the patient, she is quite uncomfortable from her abdominal pain and distention. She is also moderately to profoundly short of breath and complaining of chest tightness. I reviewed her CT report and viewed her images revealing the ascites but also noted that she has a moderate sized pericardial effusion. She is on Coumadin due to atrial fibrillation and a prior embolic stroke in 1990. Regarding her cirrhosis, she does not drink any alcohol and does not take any excessive acetaminophen. Family history is negative for any hereditary causes of cirrhosis. I suspect she has AYALA cirrhosis, but that has not been confirmed. Given her clinical presentation and complaints of subjective fevers, I am concerned about spontaneous bacterial peritonitis. Additionally, given her chest pain and shortness of breath, I am concerned about a pericardial effusion. Given likelihood of need for intervention today, I am going to reverse her Coumadin with vitamin K and request diagnostic and therapeutic paracentesis from IR. Additionally, I will request an urgent echocardiogram to evaluate for pericardial effusion. Past Med Surg Social Fam HX - Past Medical History Attestation: Yes The following information was validated with the patient. Source: patient, old records reviewed, obtained from family Medical history: atrial fibrillation, cancer, cirrhosis (new dx), CHF, COPD, DVT , diabetes, GERD, hyperlipidemia, hypertension Additional medical history: HEADACHES,SLEEP APNEA,LOW TSH Psychiatric history: no psych history - Past Surgical History Surgical History: , cholecystectomy, pacemaker/AICD Additional surgical history: BACK SURGERY, , PACEMAKER 2013, STAPH INFECTION 2014 - Social History Smoking Status: Never smoker Smokeless Tobacco Status: No Alcohol use: none Drug use: none Current living situation: Home, With Family Activity Level: Independent ambulation Recent Out of Country Travel Within the Last 8 Weeks: No - Family History Mother Adopted: No Living Status: Hx Family Cardiac Disorders: No Hx Family Respiratory Disorders: No Hx Family Cancer: Yes (colon cancer) Hx Family GI Disorders: Yes Hx Family Endocrine Disorder: No Hx Family Neuromuscular Disorders: No Hx Family Neurologic Disorders: No Hx Family HEENT Disorders: No Hx Family Autoimmune Disorders: No Father History Unknown: Yes Adopted: No Living Status: Hx Family Cardiac Disorders: Yes Hx Family Respiratory Disorders: No Hx Family Cancer: No Hx Family GI Disorders: No Hx Family Endocrine Disorder: No Hx Family Neuromuscular Disorders: No Hx Family Neurologic Disorders: Yes (stroke) Hx Family HEENT Disorders: No Hx Family Autoimmune Disorders: No Internal Medicine - H&P: Meds Lisinopril [Zestril] 5 mg PO DAILY 05/21/15 [History] Metformin HCl [Glucophage] 1,000 mg PO BID 05/21/15 [History] Metoprolol [Lopressor] 25 mg PO BID 05/21/15 [History] glipiZIDE [Glipizide] 10 mg PO BID 05/21/15 [History] Amlodipine [Norvasc] 5 mg PO DAILY 05/22/15 [History] Aspirin Enteric Coated [Aspirin EC] 81 mg PO DAILY 05/22/15 [History] Spironolactone [Aldactone] 25 mg PO DAILY 05/22/15 [History] Insulin Glargine,Hum.rec.anlog [Lantus Solostar] 20 unit SQ HS 08/01/16 [History ] Oxygen 2 l NS AD PRN 08/01/16 [History] Simvastatin [Zocor] 40 mg PO HS 08/01/16 [History] Oxycodone HCl/Acetaminophen [Percocet 5-325 mg Tablet] 1 each PO DAILY PRN #20 tablet 08/06/16 [Rx] Insulin ASPART [NovoLOG] 20 unit SQ TID 09/24/16 [History] Nystatin Cream [Mycostatin Cream] 1 appl TP BID 09/24/16 [History] Furosemide [Lasix] 40 mg PO BID #60 09/29/16 [Rx] Budesonide/Formoterol 160/4.5 [Symbicort 160/4.5] 2 puff IH BIDR #2 inhaler [Rx] Enoxaparin [Lovenox] 120 mg SQ Q12HR 02/26/17 [History] Potassium Chloride [Klor-Con 10] 2 tab PO DAILY 02/26/17 [History] Warfarin [Coumadin] 6 mg PO 1800 02/26/17 [History] 3 Allergy/AdvReac Type Severity Reaction Status Date / Time No Known Allergies Allergy Verified 10/25/16 10:51 - Constitutional Constitutional: chills, fatigue, fever(s), no night sweats - EENT Eyes: no blurry vision, no change in vision Ears: no tinnitus Nose, mouth and throat: no nasal congestion, no sore throat - Cardiovascular Cardiovascular ROS IM: chest pain, diaphoresis, dyspnea, dyspnea on exertion, edema, orthopnea, no syncope - Respiratory Respiratory: dyspnea, no cough, no hemoptysis, no chest congestion, no excessive phlegm production, no change in phlegm color - Gastrointestinal Gastrointestinal: abdominal pain, bloating, cramping, early satiety, nausea, vomiting, no hematemesis, no hematochezia, no melena - Genitourinary Genitourinary: no dysuria, no flank pain, no hematuria - Musculoskeletal Musculoskeletal ROS IM: myalgias, no arthralgias - Integumentary Integumentary IM: no rash, no jaundice - Neurological Neurological ROS: no dizziness, no focal weakness, no frequent falls, no headache(s) - Psychiatric Psychiatric: no anxiety, no depression - Endocrine Endocrine IM: no polyphagia, no polyuria - Hematologic/Lymphatic Hematologic/Lymphatic: easy bruising - Allergic/Immunologic Allergic/Immunologic: no GI upset with certain foods - Constitutional Vitals: Temp Pulse Resp BP Pulse Ox 97.4 F L 80 20 144/89 95 05/18/18 21:46 05/19/18 01:12 05/19/18 01:12 05/19/18 01:12 05/19/18 01:12 General appearance: Present: cooperative, A&O X 3, obese, answers questions appropriately Exam: moderate distress due to abdominal pain and dyspnea - Head Head exam: Present: atraumatic, normal inspection - Eye Eye exam: Present: EOMI, PERRL. Absent: scleral icterus Pupils: Present: normal accommodation - ENT ENT exam: Present: mucous membranes dry, normal exam, normal oropharynx - Neck Neck exam general surgery: Present: full ROM, supple. Absent: tenderness, nuchal rigidity, thyromegaly - Respiratory Respiratory exam: Present: rales (both bases), respiratory distress (moderate), tachypnea. Absent: chest wall tenderness, rhonchi - Cardiovascular Cardiovascular exam: Present: distant heart sounds, RRR, +S1, +S2 - GI/Abdominal GI/Abdominal exam: Present: distended, guarding, hypoactive bowel sounds, rebound, tenderness (diffuse) Additional comments: + pain with percussion; + fluid wave - Extremities Exam Extremities exam: Present: full ROM, pedal edema (3+), warm, radial pulses palpable and symmetrical. Absent: calf tenderness, joint swelling, tenderness - Back Exam Back exam: Absent: CVA tenderness (L), CVA tenderness (R) - Neurological Exam Neurological exam: Present: alert, oriented X3, no focal deficits - Psychiatric Psychiatric exam: Present: anxious - Skin Skin exam: Present: dry, intact, warm Internal Med - H&P Results - Labs CBC & Chem 7: 05/18/18 22:49 05/18/18 22:49 Labs: Urine 05/19/18 Range/Units 01:22 Urine Color Dark Yellow (Yellow) Urine Clarity Clear (Clear) Urine pH 5.5 (5.0-8.0) pH Units Ur Specific [place] > 1.030 H (1.010-1.025) Urine Protein 100 H (Neg-Trace) mg/dL Urine Glucose (UA) Normal (Normal) mg/dL - EKG Data -: EKG Interpreted by Myself - EKG Data EKG comments: 05/19/18 05:29 V paced rhythm - Impressions ITS Impressions Abdomen/Pelvis CT 05/19/18 22:22 IMPRESSION: 1. Cirrhosis with a small to moderate amount of ascites. 2. Bilateral pleural effusions and small to moderate pericardial effusion. D/ / Flo Villafana MD / Flo Villafana MD Interpreting Provider: Flo Villafana MD - Diagnostic Studies CT scan - abdomen Status: image reviewed by me (ascites and pericardial effusion noted) - Assessment and plan (1) Spontaneous bacterial peritonitis Current Visit: Yes Status: Suspected Assessment and plan: 1. Based upon clinical exam, I suspect SBP. 2. Blood cultures ordered. 3. Will give Vitamin K PEE in hopes of reversing Coumadin effect; recheck INR this morning. 4. Consult IR for diagnostic and therapeutic paracentesis. 5. Will treat with IV Flagyl and Cipro. (2) Pericardial effusion Current Visit: Yes Status: Acute Assessment and plan: 1. Will trend tropnins and EKG's. 2. STAT ECHO ordered. 3. Reverse Coumadin as above in anticipation of possible intervention. (3) Atrial fibrillation Current Visit: Yes Status: Chronic Assessment and plan: 1. Continue home meds as appropriate. 2. Patient has pacemaker. Qualifiers: Atrial fibrillation type: chronic Qualified Code(s): I48.2 - Chronic atrial fibrillation (4) DVT prophylaxis Current Visit: Yes Status: Acute Assessment and plan: 1. EPCD's - VTE Reasons for not Prescribing Prophylaxis: Not indicated-Anticoagulated or INR therapeutic
[2018-05-19] MEDS: MetroNIDAZOLE 500 MG/100 ML 500 MG/100 ML BAG IVPB SCH ×2 (08:04→16:09)
[2018-05-19] MEDS: Insulin LISPRO 300 UNITS/3 ML VIAL SQ SCH ×3 (08:08→17:14)
--- NOTE | 2018-05-19 09:50 | Emergency Department Note ---
Disposition Clinical Impression: Ascites Qualifiers: Ascites type: other type Qualified Code(s): R18.8 - Other ascites Liver cirrhosis Qualifiers: Hepatic cirrhosis type: unspecified hepatic cirrhosis Ascites presence: with ascites Qualified Code(s): K74.60 - Unspecified cirrhosis of liver Fluid overload Qualifiers: Hypervolemia type: other Qualified Code(s): E87.79 - Other fluid overload Disposition: Admitted As Inpatient Condition: Fair General Adult HPI - General Chief complaint: ED Abdominal Pain Stated complaint: "My Livers are killing me" Time Seen by Provider: 05/18/18 21:45 - History of Present Illness Pain Scale: 10 - Related Data Home Medications Medication Instructions Recorded Confirmed Lisinopril [Zestril] 5 mg PO DAILY 05/21/15 02/26/17 Metformin HCl [Glucophage] 1,000 mg PO BID 05/21/15 02/26/17 Metoprolol [Lopressor] 25 mg PO BID 05/21/15 02/26/17 glipiZIDE [Glipizide] 10 mg PO BID 05/21/15 02/26/17 Amlodipine [Norvasc] 5 mg PO DAILY 05/22/15 02/26/17 Aspirin Enteric Coated [Aspirin EC] 81 mg PO DAILY 05/22/15 02/26/17 Spironolactone [Aldactone] 25 mg PO DAILY 05/22/15 02/26/17 Insulin Glargine,Hum.rec.anlog 20 unit SQ HS 08/01/16 02/26/17 [Lantus Solostar] Oxygen 2 l NS AD PRN 08/01/16 02/26/17 Simvastatin [Zocor] 40 mg PO HS 08/01/16 02/26/17 Insulin ASPART [NovoLOG] 20 unit SQ TID 09/24/16 02/26/17 Nystatin Cream [Mycostatin Cream] 1 appl TP BID 09/24/16 02/26/17 Enoxaparin [Lovenox] 120 mg SQ Q12HR 02/26/17 02/26/17 Potassium Chloride [Klor-Con 10] 2 tab PO DAILY 02/26/17 02/26/17 Warfarin [Coumadin] 6 mg PO 1800 02/26/17 02/26/17 Previous Rx's Medication Instructions Recorded Oxycodone HCl/Acetaminophen 1 each PO DAILY PRN #20 tablet 08/06/16 [Percocet 5-325 mg Tablet] Furosemide [Lasix] 40 mg PO BID #60 09/29/16 Budesonide/Formoterol 160/4.5 2 puff IH BIDR #2 inhaler 10/27/16 [Symbicort 160/4.5] Allergies Allergy/AdvReac Type Severity Reaction Status Date / Time No Known Allergies Allergy Verified 10/25/16 10:51 Constitutional: Denies: fever Cardiovascular: Denies: chest pain Respiratory: Denies: cough, dyspnea Gastrointestinal: Reports: abdominal pain, nausea, vomiting Genitourinary: Denies: urgency, dysuria, frequency Musculoskeletal: Denies: back pain, neck pain Integumentary: Denies: rash Past Medical History - Past Medical History Medical history: Reports: atrial fibrillation, cancer, cirrhosis (new dx), CHF, COPD, DVT, diabetes, GERD, hyperlipidemia, hypertension Surgical history: Reports: , cholecystectomy, pacemaker/AICD Psychiatric history: Reports: no psych history 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 - Social History Smoking Status: Never smoker Smokeless Tobacco Status: No Alcohol use: Reports: none Drug use: Reports: none Physical Exam - General General appearance: alert, in no apparent distress Course Vital Signs Temperature 97.4 F L 05/18/18 21:35 Pulse Rate 75 05/18/18 21:35 Respiratory Rate 24 05/18/18 21:35 Blood Pressure 134/84 05/18/18 21:35 O2 Sat by Pulse Oximetry 94 05/18/18 21:35 Temperature 97.5 F L 05/19/18 07:19 Pulse Rate 75 05/19/18 07:19 Respiratory Rate 18 05/19/18 07:19 Blood Pressure 101/69 05/19/18 07:19 O2 Sat by Pulse Oximetry 92 05/19/18 07:19 Oxygen Delivery Oxygen Delivery Nasal Cannula Medical Decision Making - Lab Data Result diagrams: 05/18/18 22:49 05/18/18 22:49 Lab Results 05/18/18 05/18/18 05/18/18 Range/Units 22:49 22:49 22:56 WBC 9.4 (4.3-11.1) K/mcL RBC 5.17 H (3.82-4.97) M/mcL Hgb 13.5 (11.5-15.4) g/dL Hct 41.9 (35.3-44.9) % MCV 81.0 L (83.0-100.0) fL MCH 26.1 L (28.0-33.3) pg MCHC 32.2 (31.6-35.5) g/dL RDW 15.2 H (11.5-14.5) % Plt Count 241 (140-400) K/mcL MPV 12.2 (9.4-12.4) fL Immature Gran % 0.3 (0-4) % Seg Neutrophils % 71.7 % Lymphocytes % 19.6 % Monocytes % 7.6 % Eosinophils % 0.5 % Basophils % 0.3 % Neutrophils # 6.7 (1.6-8.9) K/mcL Lymphocytes # 1.8 (0.6-4.6) K/mcL Monocytes # 0.7 (0.0-1.3) K/mcL Eosinophils # 0.1 (0.0-0.6) K/mcL Basophils # 0.0 (0.0-0.2) K/mcL PT 39.7 H (9.4-12.1) Seconds INR 3.5 Sodium 134 L (136-145) mEq/L Potassium 4.0 (3.5-5.1) mEq/L Chloride 104 (98-107) mEq/L Carbon Dioxide 18 L (23-29) mEq/L BUN 23 (8-23) mg/dL Creatinine 0.77 (0.60-1.20) mg/dL Est GFR ( Amer) > 60 (> 60) Est GFR (Non-Af Amer) > 60 (> 60) BUN/Creatinine Ratio 30 H (6-26) Glucose 211 H (70-105) mg/dL Calculated Osmolality 288 (280-300) Calcium 9.3 (8.6-10.3) mg/dL Total Bilirubin 1.9 H (0.3-1.0) mg/dL AST 12 L (13-39) Units/L ALT 8 (7-52) Units/L Alkaline Phosphatase 75 (34-104) Units/L Troponin I < 0.03 (< 0.04) ng/mL Serum Total Protein 6.5 (6.4-8.9) g/dL Albumin 3.7 (3.5-5.7) g/dL Globulin 2.8 (2.4-3.5) g/dL Albumin/Globulin Ratio 1.3 (1.1-2.2) Lipase 63 (11-82) Units/L Attestation Statement - Attestation Attestation: I examined this patient and my medical decision-making was reviewed with the Resident Physician. I agree with the documented findings, disposition and treatment plan as described except to the extent set forth below. Pt w h/o cirrhosis of uncertain etiology (no alcohol history, hepatitis work up negative) complains of upper abdominal pain. Afebrile. On my exam, pain is mostly localized to the epigastrium and right upper quadrant; tenderness elsewhere is minimal. Based on this exam my suspicion for SBP is low, but is still a consideration. CT was negative. INR slightly supratherapeutic, plan for admission, correction of INR, diagnostic paracentesis, serial exams to continue assessment for SBP.
[2018-05-19] MEDS: Ondansetron 4 MG/2 ML VIAL IVP PRN ×2 (10:16→22:38)
[2018-05-19] MEDS: traMADol 50 MG TABLET PO PRN ×2 (10:23→22:37)
[2018-05-19 11:35] LABS: INR 2.3; Prothrombin Time 26.2 Seconds (9.4-12.1)
--- NOTE | 2018-05-19 13:38 | Event Note ---
Date of Encounter: 05/19/18 Time of Encounter: 13:30 67 year old female with h/o- a.fib, CVA, CHF, COPD, HTN, DM, recently diagnosed cirrhosis, is admitted with worsening abdominal pain and distension. Seen and examined at bedside; in distress due to pain and very uncomfortable; Chest- S1, S2 heard; lungs with bibasal crackles; Abdomen- distended, tenderness diffusely specially in upper abdomen Extremities- full ROM, B/L pedal edema, pitting CT abdomen/pelvis shows ascites, pericardial effusion; Echo is technically suboptimal, shows small-moderate pericardial effusion with no tamponade, LA dilation, grossly normal systolic function; Ascites and abdominal pain- continue PRN Tramadol and start PRN Oxycodone; start diuresis with IV Lasix, continue PO Spironolactone; IR-paracentesis pending due to high INR, s/p 10mg VIT K; continue supportive care; will send peritoneal fluid for analysis; Suspected SBP- continue IV Ciprofloxacin pending fluid analysis; no e/o- sepsis;
[2018-05-19] MEDS: Furosemide 40 MG/4 ML VIAL IVP SCH ×2 (16:07→19:08)
--- NOTE | 2018-05-19 16:39 | Electrocardiograph Report ---
[place] [id number] Test Date: 2018-05-18 Pat Name: Radha Jasmine Department: Room: 3B14 Gender: F Compensation Manager: : [id number] Requested By: Ranjit Rodriguez Order Number: [id number] Reading MD: Lillian Duran Measurements Intervals [place] Rate: 85 P: CT: QRS: 93 QRSD: 142 T: 246 QT: 414 QTc: 493 Interpretive Statements Afib/flut and V-paced complexes No further analysis attempted due to paced rhythm Electronically Signed On 05-19-2018 16:38:06 EDT by Lillian Duran
[2018-05-19] MEDS ORDERED: Furosemide 40 MG TABLET PO SCH (17:00)
[2018-05-20] MEDS: MetroNIDAZOLE 500 MG/100 ML 500 MG/100 ML BAG IVPB SCH ×4 (00:35→23:44)
[2018-05-20 04:20] LABS: Basophils % 0.4 %; Eosinophils # 0.1 K/mcL (0.0-0.6); Eosinophils % 0.7 %; Hemoglobin 12.9 g/dL (11.5-15.4); Immature Granulocytes % 0.5 % (0-4); Lymphocytes # 1.6 K/mcL (0.6-4.6); Mean Corpuscular HGB Conc 31.5 g/dL (31.6-35.5); Mean Corpuscular Hemoglobin 26.3 pg (28.0-33.3); Mean Corpuscular Volume 83.7 fL (83.0-100.0); Mean Platelet Volume 12.1 fL (9.4-12.4); Monocytes # 0.8 K/mcL (0.0-1.3); Monocytes % 10.5 %; Neutrophils # 4.9 K/mcL (1.6-8.9); Platelet Count 227 K/mcL (140-400); Red Cell Distribution Width 15.2 % (11.5-14.5); Segmented Neutrophils % 65.9 %
[2018-05-20 04:25] LABS: INR 1.4; Prothrombin Time 16.1 Seconds (9.4-12.1)
[2018-05-20 04:43] LABS: Alanine Aminotransferase 9 Units/L (7-52); Albumin 3.7 g/dL (3.5-5.7); Albumin/Globulin Ratio 1.4 (1.1-2.2); Alkaline Phosphatase 77 Units/L (34-104); Aspartate Amino Transferase 12 Units/L (13-39); BUN/Creatinine Ratio 27 (6-26); Blood Urea Nitrogen 25 mg/dL (8-23); Calcium 8.8 mg/dL (8.6-10.3); Carbon Dioxide 20 mEq/L (23-29); Chloride 102 mEq/L (98-107); Globulin 2.7 g/dL (2.4-3.5); Glucose 212 mg/dL (70-105); Magnesium 1.6 mg/dL (1.6-2.6); Osmolality,Calculated 281 (280-300); Potassium 4.2 mEq/L (3.5-5.1); Sodium 130 mEq/L (136-145); Total Protein 6.4 g/dL (6.4-8.9); eGFR For Non-African Americans 60 (> 60)
[2018-05-20] MEDS: BREO ELLIPTA IH SCH ×2 (07:24→07:25)
[2018-05-20] MEDS: Furosemide 40 MG/4 ML VIAL IVP SCH ×2 (07:57→16:56)
[2018-05-20] MEDS: traMADol 50 MG TABLET PO PRN ×3 (08:06→20:55)
[2018-05-20] MEDS: Spironolactone 25 MG TABLET PO SCH (08:06)
[2018-05-20] MEDS: Aspirin Enteric Coated 81 MG Tablet PO SCH (08:07)
[2018-05-20] MEDS: Insulin LISPRO 300 UNITS/3 ML VIAL SQ SCH ×3 (08:10→17:05)
--- NOTE | 2018-05-20 09:32 | Internal Med Progress Note ---
Hospitalist Progress Note - Encounter Date of Encounter: 05/20/18 Time of Encounter: 09:32 - Subjective Interval History: Seen and examined at bedside, has complaints of abdominal swelling and pain due to ascites. Additionally concerned about bilateral lower extremity swelling. She is admitted for recent diagnosis of cirrhosis and abdominal pain/distention with bilateral extremity swelling. She is anxious to receive IR paracentesis for fluid removal. I discussed plan of care today patient verbalized understanding and denies any further questions - Exam Vitals: Temp Pulse Resp BP Pulse Ox 97.3 F L 79 18 99/70 96 05/20/18 07:00 05/20/18 07:00 05/20/18 07:24 05/20/18 07:00 05/20/18 07:24 Exam: PHYSICAL EXAMINATION: GENERAL: The patient is an ill-appearing obese female in mild distress due to abdominal swelling and abdominal discomfort. She is alert and oriented x3. HEENT: Head is normocephalic and atraumatic. Extraocular muscles are intact. Pupils are equal, round, and reactive to light and accommodation. Nares appeared normal. Mouth is well hydrated and without lesions. Mucous membranes are moist. NECK: Supple. No carotid bruits. No lymphadenopathy or thyromegaly. LUNGS: Clear to auscultation. HEART: Regular rate and rhythm without murmur. ABDOMEN: Distended abdomen, tympanic to percussion. Diffuse tenderness throughout entire abdomen but most prominent in the right upper quadrant. Positive bowel sounds. EXTREMITIES: Without any cyanosis, clubbing, rash, lesions. Edematous all over , bilateral lower extremity 2+ pitting edema NEUROLOGIC: Without facial droop or slurred speech SKIN: No ulceration or induration present. - Assessment and Plan (1) Spontaneous bacterial peritonitis Current Visit: Yes Status: Suspected Assessment and Plan: Cirrhosis, abdominal pain/distention and ascites Suspected SBP based on clinical presentation and abdominal tenderness Continue IV ciprofloxacin and Flagyl To undergo paracentesis this afternoon--spoke with IR who states that the patient is on the schedule; we will send fluid for analysis Blood cultures pending (2) Pericardial effusion Current Visit: Yes Status: Acute Assessment and Plan: Small-moderate pericardial effusion present No evidence of hemodynamic compromise No evidence of tamponade Serial troponin trended negative 3 Continue to closely monitor (3) Atrial fibrillation Current Visit: Yes Status: Chronic Assessment and Plan: Per history, has pacemaker, holding warfarin for now as patient needs paracentesis for ascites. 1. Continue home meds as appropriate. 12 are HR review of 79 bpm Resume medications for atrial fibrillation as appropriate, resume warfarin when appropriate. (4) DVT prophylaxis Current Visit: Yes Status: Acute Assessment and Plan: Continue EPCD's - Time Spent with Patient Total time spent is greater than 50% in coordination of care (as documented) at patient's floor/unit and/or counseling patient: less than 15 minutes Plan of Care Discussed with: patient Internal Medicine: Result - Labs CBC & Chem 7: 05/20/18 03:58 05/20/18 03:58 Labs: Short CBC 05/20/18 Range/Units 03:58 WBC 7.4 (4.3-11.1) K/mcL Hgb 12.9 (11.5-15.4) g/dL Hct 41.0 (35.3-44.9) % Plt Count 227 (140-400) K/mcL Neutrophils # 4.9 (1.6-8.9) K/mcL BMP 05/20/18 03:58 Sodium 130 L Potassium 4.2 Chloride 102 Carbon Dioxide 20 L BUN 25 H Creatinine 0.94 Glucose 212 H Calcium 8.8 Cardiac Enzymes 05/19/18 05/19/18 Range/Units 10:33 17:29 Troponin I < 0.03 < 0.03 (< 0.04) ng/mL Liver Function 05/20/18 Range/Units 03:58 Total Bilirubin 2.0 H (0.3-1.0) mg/dL AST 12 L (13-39) Units/L ALT 9 (7-52) Units/L Alkaline Phosphatase 77 (34-104) Units/L Albumin 3.7 (3.5-5.7) g/dL - ABG Interpretation ABG results: PT/INR, D-dimer PT 16.1 Seconds (9.4-12.1) H 05/20/18 03:58 - Impressions Impressions Echocardiogram 05/19/18 04:51 Impressions: Technically challenging due to body habitus. Grossly, LV systolic function appears normal. Indeterminate diastolic function. RV is not well evaluated. Severely dilated left atrium. Mild tricuspid regurgitation. Mild pulmonary hypertension by TR gradient. IVC not well visualized to estimate RVSP. There is a small to moderate pericardial effusion present. There is no echocardiographic evidence of tamponade. Findings: Study Quality * Technically challenging due to body habitus. ECG Findings * Paced rhythm. Left Ventricle * Grossly, LV systolic function appears normal. * Indeterminate diastolic function. * Normal LV chamber size and wall thickness. Right Ventricle * RV is not well evaluated. Left Atrium * Severely dilated left atrium. Right Atrium * Right atrium is not well visualized. Aortic Valve * No aortic regurgitation. * Aortic valve not well visualized. * No aortic stenosis. Mitral Valve * Mitral valve not well visualized. * No mitral stenosis. * Trace mitral regurgitation. Tricuspid Valve * Tricuspid valve not well visualized. * Mild tricuspid regurgitation. Pulmonic Valve * Pulmonic valve is not well visualized. * No pulmonic stenosis. * No pulmonic regurgitation. Pulmonary Artery * Pulmonary artery not well visualized. Aorta * Normally sized aortic root. Pericardium * There is a small to moderate pericardial effusion present. * There is no echocardiographic evidence of tamponade. Normal blood pressure, normal heart rate. No significant respiratory variation across the mitral valve. Subcostal window was not well visualized. Interatrial Septum * Interatrial septum not well evaluated. IVC * The IVC is not well evaluated. Device lead * A device lead was visualized in the right atrium and right ventricle. - VTE Reasons for not Prescribing Prophylaxis: Not indicated-Anticoagulated or INR therapeutic Consult Discharge Plan - Plan (3) Atrial fibrillation Qualifiers: Atrial fibrillation type: chronic Qualified Code(s): I48.2 - Chronic atrial fibrillation
[2018-05-20] MEDS: Ondansetron 4 MG/2 ML VIAL IVP PRN ×2 (12:45→20:55)
[2018-05-20] MEDS: Albuterol 2.5 MG/3 ML NEBULIZER IH SCH ×2 (15:45→22:12)
[2018-05-20] MEDS ORDERED: Warfarin perPT PO PRN (18:00)
[2018-05-20] MEDS ORDERED: *HR* Warfarin 5 MG TABLET PO SCH (18:00)
[2018-05-20] MEDS: Budesonide Neb 0.5 MG/2 ML IH SCH (22:12)
[2018-05-21] MEDS: Albuterol 2.5 MG/3 ML NEBULIZER IH SCH ×4 (04:13→22:03)
[2018-05-21] MEDS: Ondansetron 4 MG/2 ML VIAL IVP PRN (05:17)
[2018-05-21] MEDS: traMADol 50 MG TABLET PO PRN ×3 (05:18→21:24)
[2018-05-21 05:39] LABS: INR 1.4
[2018-05-21 05:53] LABS: Prothrombin Time 15.9 Seconds (9.4-12.1)
[2018-05-21] MEDS: Furosemide 40 MG/4 ML VIAL IVP SCH (08:21)
[2018-05-21] MEDS: MetroNIDAZOLE 500 MG/100 ML 500 MG/100 ML BAG IVPB SCH (08:22)
[2018-05-21] MEDS: Aspirin Enteric Coated 81 MG Tablet PO SCH (08:25)
[2018-05-21] MEDS: Spironolactone 25 MG TABLET PO SCH (08:25)
[2018-05-21] MEDS: Insulin LISPRO 300 UNITS/3 ML VIAL SQ SCH ×3 (08:26→17:31)
[2018-05-21] MEDS: Budesonide Neb 0.5 MG/2 ML IH SCH ×2 (11:36→22:03)
[2018-05-21 15:02] LABS: Basophils % 0.3 %; Eosinophils # 0.1 K/mcL (0.0-0.6); Eosinophils % 0.5 %; Hematocrit 40.5 % (35.3-44.9); Hemoglobin 13.1 g/dL (11.5-15.4); Immature Granulocytes % 0.4 % (0-4); Lymphocytes # 1.4 K/mcL (0.6-4.6); Lymphocytes % 14.9 %; Mean Corpuscular HGB Conc 32.3 g/dL (31.6-35.5); Mean Corpuscular Hemoglobin 26.8 pg (28.0-33.3); Mean Corpuscular Volume 82.8 fL (83.0-100.0); Mean Platelet Volume 11.9 fL (9.4-12.4); Monocytes # 0.9 K/mcL (0.0-1.3); Monocytes % 9.3 %; Neutrophils # 6.8 K/mcL (1.6-8.9); Platelet Count 212 K/mcL (140-400); Red Blood Count 4.89 M/mcL (3.82-4.97); Segmented Neutrophils % 74.6 %
[2018-05-21 15:16] LABS: BUN/Creatinine Ratio 25 (6-26); Blood Urea Nitrogen 22 mg/dL (8-23); Calcium 8.9 mg/dL (8.6-10.3); Carbon Dioxide 24 mEq/L (23-29); Chloride 102 mEq/L (98-107); Glucose 213 mg/dL (70-105); Osmolality,Calculated 284 (280-300); Sodium 132 mEq/L (136-145); eGFR For Non-African Americans > 60 (> 60)
[2018-05-21] MEDS: metroNIDAZOLE 500 MG TABLET PO SCH ×2 (15:47→21:19)
[2018-05-21] MEDS ORDERED: *HR* Warfarin 5 MG TABLET PO ONE (18:00)
[2018-05-21] MEDS ORDERED: Furosemide 40 MG/4 ML VIAL IVP ONE (21:00)
[2018-05-21] MEDS: OXYCODONE Oral CONC 10 MG/0.5 ML ORAL.SYG SL PRN (23:51)
[2018-05-22 04:15] LABS: Basophils % 0.4 %; Eosinophils # 0.1 K/mcL (0.0-0.6); Eosinophils % 0.7 %; Hematocrit 42.1 % (35.3-44.9); Hemoglobin 13.3 g/dL (11.5-15.4); Immature Granulocytes % 0.4 % (0-4); Lymphocytes # 1.7 K/mcL (0.6-4.6); Lymphocytes % 19.3 %; Mean Corpuscular HGB Conc 31.6 g/dL (31.6-35.5); Mean Corpuscular Hemoglobin 26.7 pg (28.0-33.3); Mean Corpuscular Volume 84.4 fL (83.0-100.0); Mean Platelet Volume 12.2 fL (9.4-12.4); Monocytes # 0.9 K/mcL (0.0-1.3); Monocytes % 9.6 %; Neutrophils # 6.2 K/mcL (1.6-8.9); Platelet Count 191 K/mcL (140-400); Red Blood Count 4.99 M/mcL (3.82-4.97); Red Cell Distribution Width 15.2 % (11.5-14.5); Segmented Neutrophils % 69.6 %
[2018-05-22 04:23] LABS: INR 1.5; Prothrombin Time 17.4 Seconds (9.4-12.1)
[2018-05-22] MEDS: Albuterol 2.5 MG/3 ML NEBULIZER IH SCH ×4 (04:26→21:50)
[2018-05-22 04:36] LABS: BUN/Creatinine Ratio 24 (6-26); Blood Urea Nitrogen 22 mg/dL (8-23); Calcium 8.8 mg/dL (8.6-10.3); Carbon Dioxide 19 mEq/L (23-29); Chloride 103 mEq/L (98-107); Glucose 277 mg/dL (70-105); Osmolality,Calculated 287 (280-300); Potassium 3.9 mEq/L (3.5-5.1); Sodium 132 mEq/L (136-145); eGFR For Non-African Americans > 60 (> 60)
[2018-05-22] MEDS: Aspirin Enteric Coated 81 MG Tablet PO SCH (08:06)
[2018-05-22] MEDS: Spironolactone 25 MG TABLET PO SCH (08:06)
[2018-05-22] MEDS: metroNIDAZOLE 500 MG TABLET PO SCH (08:06)
[2018-05-22] MEDS: Insulin LISPRO 300 UNITS/3 ML VIAL SQ SCH ×3 (08:07→16:46)
--- NOTE | 2018-05-22 08:46 | Event Note ---
Date of Encounter: 05/22/18 Time of Encounter: 08:44 - Cardiology Event Note Consult noted for small to moderate pericardial effusion per TTE. TTE reviewed, no evidence of tamponade. Vital signs stable. Discussed and reviewed with , consider re-evaluation of pericardial effusion with TTE as clinically indicated or as outpatient. Cardiology will sign off and will arrange outpatient follow up.
--- NOTE | 2018-05-22 09:36 | Internal Med Progress Note ---
Hospitalist Progress Note - Encounter Date of Encounter: 05/21/18 Time of Encounter: 09:00 - Subjective Interval History: Seen and examined at bedside, has complaints of abdominal swelling and pain due to ascites. Additional concerns for bilateral lower extremity swelling. She is admitted for recent diagnosis of cirrhosis and abdominal pain/distention with bilateral extremity swelling with congestive HF. I discussed plan of care today patient verbalized understanding and denies any further questions - Exam Vitals: Temp Pulse Resp BP Pulse Ox 97.5 F L 78 16 113/64 92 05/22/18 07:23 05/22/18 07:23 05/22/18 07:23 05/22/18 07:23 05/22/18 07:23 Exam: PHYSICAL EXAMINATION: GENERAL: The patient is an ill-appearing obese female in mild distress due to abdominal swelling and abdominal discomfort. She is alert and oriented x3. HEENT: Head is normocephalic and atraumatic. Extraocular muscles are intact. Pupils are equal, round, and reactive to light and accommodation. Nares appeared normal. Mouth is well hydrated and without lesions. Mucous membranes are moist. NECK: Supple. No carotid bruits. No lymphadenopathy or thyromegaly. LUNGS: Clear/diminished to auscultation. HEART: Regular rate and rhythm without murmur. ABDOMEN: Distended abdomen, tympanic to percussion. nontender, Positive bowel sounds. EXTREMITIES: Without any cyanosis, clubbing, rash, lesions. Edematous all over , bilateral lower extremity 2+ pitting edema NEUROLOGIC: Without facial droop or slurred speech SKIN: No ulceration or induration present. - Assessment and Plan (1) Spontaneous bacterial peritonitis Current Visit: Yes Status: Suspected Assessment and Plan: Cirrhosis, abdominal pain/distention and ascites Suspected SBP based on clinical presentation and abdominal tenderness abdominal tenderness has ceased, swelling and tenderness likely associated with cirrhosis stop IV ciprofloxacin and Flagyl; has remain afebrile, does not appear toxic and now leukocytosis blood culture pending- f/u with culture results (2) Pericardial effusion Current Visit: Yes Status: Acute Assessment and Plan: Small-moderate pericardial effusion present No evidence of hemodynamic compromise No evidence of tamponade Serial troponin trended negative 3 Continue to closely monitor cardiology rec f/u tte as clinically indicated or as outpatient, cardio has signed off and will arrange outpatient f/u (3) Atrial fibrillation Current Visit: Yes Status: Chronic Assessment and Plan: Per history, has pacemaker 1. Continue home meds as appropriate. cont warfarin pt to dose (4) Ascites Current Visit: Yes Status: Acute Assessment and Plan: consult to GI for further recommendations will need outpatient f/u; has yet to establish; requesting appointment (5) Acute exacerbation of CHF (congestive heart failure) Current Visit: No Status: Acute Assessment and Plan: Exacerbation of heart failure, unclear whether or not systolic versus diastolic or combined Fluid overload with abdominal swelling, bilateral lower extremity 2+ pitting edema TTE findings are as follows Technically challenging due to body habitus. Grossly, LV systolic function appears normal. Indeterminate diastolic function. RV is not well evaluated. Severely dilated left atrium. Mild tricuspid regurgitation. Mild pulmonary hypertension by TR gradient. IVC not well visualized to estimate RVSP. There is a small to moderate pericardial effusion present. There is no echocardiographic evidence of tamponade. Increased diuretics, strict I's and O's, fluid restriction 1.5 liter, daily weights (6) Fluid overload Current Visit: Yes Status: Acute Assessment and Plan: see above (7) DVT prophylaxis Current Visit: Yes Status: Acute Assessment and Plan: Continue EPCD's - Time Spent with Patient Total time spent is greater than 50% in coordination of care (as documented) at patient's floor/unit and/or counseling patient: less than 15 minutes Plan of Care Discussed with: patient Internal Medicine: Result - Labs CBC & Chem 7: 05/22/18 03:59 05/22/18 03:59 Labs: Short CBC 05/21/18 05/22/18 Range/Units 14:48 03:59 WBC 9.1 9.0 (4.3-11.1) K/mcL Hgb 13.1 13.3 (11.5-15.4) g/dL Hct 40.5 42.1 (35.3-44.9) % Plt Count 212 191 (140-400) K/mcL Neutrophils # 6.8 6.2 (1.6-8.9) K/mcL BMP 05/21/18 05/22/18 14:48 03:59 Sodium 132 L 132 L Potassium 4.0 3.9 Chloride 102 103 Carbon Dioxide 24 19 L BUN 22 22 Creatinine 0.88 0.93 Glucose 213 H 277 H Calcium 8.9 8.8 - ABG Interpretation ABG results: PT/INR, D-dimer PT 17.4 Seconds (9.4-12.1) H 05/22/18 03:59 - VTE Reasons for not Prescribing Prophylaxis: Not indicated-Anticoagulated or INR therapeutic Consult Discharge Plan - Plan Referrals: Desi Cornell [Primary Care Provider] - (3) Atrial fibrillation Qualifiers: Atrial fibrillation type: chronic Qualified Code(s): I48.2 - Chronic atrial fibrillation (4) Ascites Qualifiers: Ascites type: other type Qualified Code(s): R18.8 - Other ascites (5) Acute exacerbation of CHF (congestive heart failure) Qualifiers: Qualified Code(s): I50.33 - Acute on chronic diastolic (congestive) heart failure (6) Fluid overload Qualifiers: Hypervolemia type: unspecified Qualified Code(s): E87.70 - Fluid overload, unspecified
[2018-05-22] MEDS ORDERED: Furosemide 40 MG/4 ML VIAL IVP ONE ×2 (09:39→21:00)
--- NOTE | 2018-05-22 09:49 | Internal Med Progress Note ---
Hospitalist Progress Note - Encounter Date of Encounter: 05/22/18 Time of Encounter: 09:00 - Subjective Interval History: Seen and examined at bedside, has complaints of abdominal swelling and pain due to ascites and fluid overload with CHF and BLE swelling. Dyspnea improving, swelling improving but persists. Discussed POC, - Exam Vitals: Temp Pulse Resp BP Pulse Ox 97.5 F L 78 16 113/64 92 05/22/18 07:23 05/22/18 07:23 05/22/18 07:23 05/22/18 07:23 05/22/18 07:23 Exam: PHYSICAL EXAMINATION: GENERAL: The patient is an ill-appearing obese female in mild distress due to abdominal swelling and abdominal discomfort. She is alert and oriented x3. HEENT: Head is normocephalic and atraumatic. Extraocular muscles are intact. Pupils are equal, round, and reactive to light and accommodation. Nares appeared normal. Mouth is well hydrated and without lesions. Mucous membranes are moist. NECK: Supple. No carotid bruits. No lymphadenopathy or thyromegaly. LUNGS: Clear/diminished to auscultation. HEART: Regular rate and rhythm without murmur. ABDOMEN: Distended abdomen, tympanic to percussion. nontender, Positive bowel sounds. EXTREMITIES: Without any cyanosis, clubbing, rash, lesions. Edematous all over , bilateral lower extremity 2+ pitting edema NEUROLOGIC: Without facial droop or slurred speech SKIN: No ulceration or induration present. - Assessment and Plan (1) Spontaneous bacterial peritonitis Current Visit: Yes Status: Suspected Assessment and Plan: Cirrhosis, abdominal pain/distention and ascites Suspected SBP based on clinical presentation and abdominal tenderness abdominal tenderness has ceased, swelling and tenderness likely associated with cirrhosis Cipro and Flagyl stopped; has remained afebrile, does not appear toxic and now leukocytosis blood culture pending- f/u with culture results (2) Pericardial effusion Current Visit: Yes Status: Acute Assessment and Plan: Small-moderate pericardial effusion present No evidence of hemodynamic compromise No evidence of tamponade Serial troponin trended negative 3 Continue to closely monitor cardiology rec f/u TTE as clinically indicated or as outpatient, cardio has signed off and will arrange outpatient f/u (3) Atrial fibrillation Current Visit: Yes Status: Chronic Assessment and Plan: Per history, has pacemaker, Continue home meds as appropriate. cont warfarin pt to dose; INR subtherapeutic (4) Ascites Current Visit: Yes Status: Acute Assessment and Plan: consult to GI for further recommendations will need outpatient f/u; has yet to establish; requesting appointment (5) Acute exacerbation of CHF (congestive heart failure) Current Visit: No Status: Acute Assessment and Plan: Exacerbation of heart failure, unclear whether or not systolic versus diastolic or combined Fluid overload with abdominal swelling, bilateral lower extremity 2+ pitting edema TTE findings are as follows Technically challenging due to body habitus. Grossly, LV systolic function appears normal. Indeterminate diastolic function. RV is not well evaluated. Severely dilated left atrium. Mild tricuspid regurgitation. Mild pulmonary hypertension by TR gradient. IVC not well visualized to estimate RVSP. There is a small to moderate pericardial effusion present. There is no echocardiographic evidence of tamponade. Increased diuretics, strict I's and O's, fluid restriction 1.5 liter, daily weights (6) Fluid overload Current Visit: Yes Status: Acute Assessment and Plan: see above (7) DVT prophylaxis Current Visit: Yes Status: Acute Assessment and Plan: Continue EPCD's - Time Spent with Patient Total time spent is greater than 50% in coordination of care (as documented) at patient's floor/unit and/or counseling patient: less than 15 minutes Plan of Care Discussed with: patient Internal Medicine: Result - Labs CBC & Chem 7: 05/22/18 03:59 05/22/18 03:59 Labs: Short CBC 05/21/18 05/22/18 Range/Units 14:48 03:59 WBC 9.1 9.0 (4.3-11.1) K/mcL Hgb 13.1 13.3 (11.5-15.4) g/dL Hct 40.5 42.1 (35.3-44.9) % Plt Count 212 191 (140-400) K/mcL Neutrophils # 6.8 6.2 (1.6-8.9) K/mcL BMP 05/21/18 05/22/18 14:48 03:59 Sodium 132 L 132 L Potassium 4.0 3.9 Chloride 102 103 Carbon Dioxide 24 19 L BUN 22 22 Creatinine 0.88 0.93 Glucose 213 H 277 H Calcium 8.9 8.8 - ABG Interpretation ABG results: PT/INR, D-dimer PT 17.4 Seconds (9.4-12.1) H 05/22/18 03:59 - VTE Reasons for not Prescribing Prophylaxis: Not indicated-Anticoagulated or INR therapeutic Consult Discharge Plan - Plan Referrals: Desi Cornell [Primary Care Provider] - (3) Atrial fibrillation Qualifiers: Atrial fibrillation type: chronic Qualified Code(s): I48.2 - Chronic atrial fibrillation (4) Ascites Qualifiers: Ascites type: other type Qualified Code(s): R18.8 - Other ascites (6) Fluid overload Qualifiers: Hypervolemia type: unspecified Qualified Code(s): E87.70 - Fluid overload, unspecified
[2018-05-22] MEDS: Budesonide Neb 0.5 MG/2 ML IH SCH ×2 (10:35→21:50)
[2018-05-22] MEDS ORDERED: *HR* Warfarin 5 MG TABLET PO ONE (18:00)
[2018-05-22] MEDS: traMADol 50 MG TABLET PO PRN (21:21)
[2018-05-23] MEDS: Albuterol 2.5 MG/3 ML NEBULIZER IH SCH ×4 (03:42→21:34)
[2018-05-23 04:05] LABS: Basophils % 0.5 %; Eosinophils # 0.1 K/mcL (0.0-0.6); Eosinophils % 0.9 %; Hemoglobin 13.3 g/dL (11.5-15.4); Immature Granulocytes % 0.6 % (0-4); Lymphocytes # 1.6 K/mcL (0.6-4.6); Lymphocytes % 20.4 %; Mean Corpuscular HGB Conc 32.4 g/dL (31.6-35.5); Mean Corpuscular Hemoglobin 26.6 pg (28.0-33.3); Mean Platelet Volume 12.6 fL (9.4-12.4); Monocytes # 0.8 K/mcL (0.0-1.3); Monocytes % 10.2 %; Neutrophils # 5.3 K/mcL (1.6-8.9); Platelet Count 206 K/mcL (140-400); Red Cell Distribution Width 15.4 % (11.5-14.5); Segmented Neutrophils % 67.4 %
[2018-05-23 04:12] LABS: Prothrombin Time 22.9 Seconds (9.4-12.1)
[2018-05-23 04:29] LABS: BUN/Creatinine Ratio 23 (6-26); Blood Urea Nitrogen 19 mg/dL (8-23); Calcium 8.9 mg/dL (8.6-10.3); Carbon Dioxide 21 mEq/L (23-29); Chloride 102 mEq/L (98-107); Glucose 327 mg/dL (70-105); Osmolality,Calculated 293 (280-300); Potassium 3.8 mEq/L (3.5-5.1); Sodium 134 mEq/L (136-145); eGFR For Non-African Americans > 60 (> 60)
[2018-05-23] MEDS: Aspirin Enteric Coated 81 MG Tablet PO SCH (08:11)
[2018-05-23] MEDS: Spironolactone 25 MG TABLET PO SCH (08:11)
[2018-05-23] MEDS: Insulin LISPRO 300 UNITS/3 ML VIAL SQ SCH ×3 (08:12→16:16)
--- NOTE | 2018-05-23 09:28 | Internal Med Progress Note ---
Hospitalist Progress Note - Encounter Date of Encounter: 05/23/18 Time of Encounter: 09:20 - Subjective Interval History: Seen and examined at bedside, has complaints of abdominal swelling and pain due to ascites and fluid overload with CHF and BLE swelling. Reporting discomfort overnight d/t abdominal swelling. Additionally, reporting orthopnea. - Exam Vitals: Temp Pulse Resp BP Pulse Ox 98.0 F 78 16 113/77 94 05/23/18 07:20 05/23/18 07:20 05/23/18 07:20 05/23/18 07:20 05/23/18 07:20 Exam: PHYSICAL EXAMINATION: GENERAL: The patient is an ill-appearing obese female in mild distress due to abdominal swelling and abdominal discomfort. She is alert and oriented x3. HEENT: Head is normocephalic and atraumatic. Extraocular muscles are intact. Pupils are equal, round, and reactive to light and accommodation. Nares appeared normal. Mouth is well hydrated and without lesions. Mucous membranes are moist. NECK: Supple. No carotid bruits. No lymphadenopathy or thyromegaly. LUNGS: Clear/diminished to auscultation, without rales. HEART: RRR without murmur. ABDOMEN: Distended abdomen, tympanic to percussion. nontender, Positive bowel sounds. EXTREMITIES: Without any cyanosis, clubbing, rash, lesions. Edematous all over , bilateral lower extremity 2+ pitting edema NEUROLOGIC: Without facial droop or slurred speech SKIN: No ulceration or induration present. - Assessment and Plan (1) Spontaneous bacterial peritonitis Current Visit: Yes Status: Suspected Assessment and Plan: Cirrhosis, abdominal pain/distention and ascites Upon presentation initially Suspected SBP based on clinical presentation and abdominal tenderness abdominal tenderness has ceased, swelling and tenderness likely associated with cirrhosis; low suspicion-monitor blood cultures Cipro and Flagyl stopped; has remained afebrile, does not appear toxic and now leukocytosis (2) Pericardial effusion Current Visit: Yes Status: Acute Assessment and Plan: Small-moderate pericardial effusion present No evidence of hemodynamic compromise No evidence of tamponade Serial troponin trended negative 3 Continue to closely monitor cardiology rec f/u TTE as clinically indicated or as outpatient, cardio has signed off and will arrange outpatient f/u (3) Atrial fibrillation Current Visit: Yes Status: Chronic Assessment and Plan: Per history, has pacemaker, Continue home meds as appropriate. cont warfarin pt to dose; INR remains subtherapeutic (4) Ascites Current Visit: Yes Status: Acute Assessment and Plan: Ascites persistent secondary to presumably AYALA cirrhosis Consult to GI-awaiting recommendations Increase Aldactone dose, continue Lasix in the setting of heart failure and ascites will need outpatient f/u; has yet to establish; requesting appointment (5) Acute exacerbation of CHF (congestive heart failure) Current Visit: No Status: Acute Assessment and Plan: Exacerbation of heart failure, unclear whether or not systolic versus diastolic or combined Fluid overload with abdominal swelling, bilateral lower extremity 2+ pitting edema TTE findings are as follows Technically challenging due to body habitus. Grossly, LV systolic function appears normal. Indeterminate diastolic function. RV is not well evaluated. Severely dilated left atrium. Mild tricuspid regurgitation. Mild pulmonary hypertension by TR gradient. IVC not well visualized to estimate RVSP. There is a small to moderate pericardial effusion present. There is no echocardiographic evidence of tamponade. Resume diuretics, fluid restriction 1.5 liter, daily weights, and insert curtis catheter for strict I&O monitoring, increasing dose of Aldactone (6) Fluid overload Current Visit: Yes Status: Acute Assessment and Plan: See above (7) DVT prophylaxis Current Visit: Yes Status: Acute Assessment and Plan: Continue EPCD's - Time Spent with Patient Total time spent is greater than 50% in coordination of care (as documented) at patient's floor/unit and/or counseling patient: less than 15 minutes Plan of Care Discussed with: patient Internal Medicine: Result - Labs CBC & Chem 7: 05/23/18 03:34 05/23/18 03:34 Labs: Short CBC 05/23/18 Range/Units 03:34 WBC 7.8 (4.3-11.1) K/mcL Hgb 13.3 (11.5-15.4) g/dL Hct 41.0 (35.3-44.9) % Plt Count 206 (140-400) K/mcL Neutrophils # 5.3 (1.6-8.9) K/mcL BMP 05/23/18 03:34 Sodium 134 L Potassium 3.8 Chloride 102 Carbon Dioxide 21 L BUN 19 Creatinine 0.81 Glucose 327 H Calcium 8.9 - ABG Interpretation ABG results: PT/INR, D-dimer PT 22.9 Seconds (9.4-12.1) H 05/23/18 03:34 - VTE Reasons for not Prescribing Prophylaxis: Not indicated-Anticoagulated or INR therapeutic Consult Discharge Plan - Plan Referrals: Desi Cornell [Primary Care Provider] - (3) Atrial fibrillation Qualifiers: Atrial fibrillation type: chronic Qualified Code(s): I48.2 - Chronic atrial fibrillation (4) Ascites Qualifiers: Ascites type: other type Qualified Code(s): R18.8 - Other ascites (6) Fluid overload Qualifiers: Hypervolemia type: unspecified Qualified Code(s): E87.70 - Fluid overload, unspecified
[2018-05-23] MEDS: Budesonide Neb 0.5 MG/2 ML IH SCH ×2 (09:30→21:33)
[2018-05-23] MEDS ORDERED: Spironolactone 25 MG TABLET PO ONE (11:00)
[2018-05-23] MEDS: Ondansetron 4 MG/2 ML VIAL IVP PRN (16:16)
[2018-05-23] MEDS: Furosemide 40 MG/4 ML VIAL IVP SCH (16:16)
[2018-05-23] MEDS: traMADol 50 MG TABLET PO PRN (16:24)
[2018-05-23] MEDS ORDERED: *HR* Warfarin 2.5 MG TABLET PO ONE (18:00)
[2018-05-24] MEDS: Albuterol 2.5 MG/3 ML NEBULIZER IH SCH ×4 (04:13→21:52)
[2018-05-24 04:55] LABS: Basophils % 0.4 %; Eosinophils # 0.1 K/mcL (0.0-0.6); Eosinophils % 1.1 %; Hematocrit 42.2 % (35.3-44.9); Hemoglobin 13.6 g/dL (11.5-15.4); Immature Granulocytes % 0.5 % (0-4); Lymphocytes # 1.7 K/mcL (0.6-4.6); Lymphocytes % 21.7 %; Mean Corpuscular HGB Conc 32.2 g/dL (31.6-35.5); Mean Corpuscular Hemoglobin 26.6 pg (28.0-33.3); Mean Corpuscular Volume 82.6 fL (83.0-100.0); Mean Platelet Volume 12.6 fL (9.4-12.4); Monocytes # 0.8 K/mcL (0.0-1.3); Monocytes % 9.9 %; Neutrophils # 5.3 K/mcL (1.6-8.9); Platelet Count 214 K/mcL (140-400); Red Blood Count 5.11 M/mcL (3.82-4.97); Red Cell Distribution Width 15.5 % (11.5-14.5); Segmented Neutrophils % 66.4 %
[2018-05-24 05:01] LABS: INR 2.3; Prothrombin Time 25.9 Seconds (9.4-12.1)
[2018-05-24] MEDS: Aspirin Enteric Coated 81 MG Tablet PO SCH (07:40)
[2018-05-24] MEDS: Insulin LISPRO 300 UNITS/3 ML VIAL SQ SCH ×3 (07:40→17:17)
[2018-05-24] MEDS: Furosemide 40 MG/4 ML VIAL IVP SCH (07:41)
[2018-05-24] MEDS: traMADol 50 MG TABLET PO PRN ×2 (07:54→20:16)
[2018-05-24] MEDS: Budesonide Neb 0.5 MG/2 ML IH SCH ×2 (09:49→21:52)
--- NOTE | 2018-05-24 11:06 | Gastroenterology Consult Note ---
<Rui Julio Lexx - Last Filed: 05/24/18 11:04> Date of Encounter: 05/24/18 Time of Encounter: 10:15 - Assessment and plan (1) Liver cirrhosis Current Visit: Yes Status: Acute Assessment and plan: MELD-Na 20, Child-Archibald class B. 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. US showed small amount of ascites, and paracentesis was not performed. Start Lasix 40mg daily and Aldactone 100 mg daily. Recommend 2-4 BM daily, use Lactulose as needed. Complete liver workup. Lifestyle Changes: 1. Total abstinence from alcohol including social drinking. 2. No smoking. 3. Gradual loss of weight. 4. Drink at least 3 cups of coffee due to its antioxidant effects in the liver, it reduces risk of HCC and advance fibrosis. 5. If needed, use less than 2 g/day of Tylenol (in divided doses). 6. Vaccination for Hep A, B, Pneumococcus if not already received and yearly influenza vaccination by PCP. 7. Avoid NSAIDS as can cause kidney damage. 8. Avoid benzodiazepines and other sedatives such as anti-histamines, narcotics etc. as can cause encephalopathy or confusion. 9. Take a late carbohydrate meal supplement as it reduces glucose production from protein breakdown and thus improves nutrition. 10. In cirrhosis, statins are safe to use and also improve portal hypertension and decrease risk of HCC. Qualifiers: Hepatic cirrhosis type: unspecified hepatic cirrhosis Ascites presence: with ascites Qualified Code(s): K74.60 - Unspecified cirrhosis of liver; R18.8 - Other ascites (2) Ascites Current Visit: Yes Status: Acute Qualifiers: Ascites type: other type Qualified Code(s): R18.8 - Other ascites - Time Spent With Patient Total time spent is greater than 50% in coordination of care (as documented) at patient's floor/unit and/or counseling patient: GI History of Present Illness - Data of Consult Patient: new to practice Consult date: 05/24/18 Requesting Physician: Lilia Muñoz MD - Consult Narrative History of present illness: Ms. Jasmine is a 67 year old female with PMHx of Afib, cirrhosis, CHF, COPD, DVT , DM, GERD, HLD, HTN who presented with complaints of abdominal pain/cramping, worsening abdominal cramping, SOB, and chest pain/tightness. CT A/P showed cirrhosis with a small to moderate amount of ascites, bilateral pleural effusions and small to moderate pericardial effusion. She had recent EGD performed at [facility] in [place] and was just told by the manager mass there that she had cirrhosis. She denies alcohol consumption and does not take excessive acetaminophen. She was started on Cipro and Flagyl for concern of SBP. Procedures: EGD 3 weeks ago at [facility] with small hiatal hernia and gastritis-per patient report. NSAIDs: ASA Anticoagulation: Coumadin Past Med Surg Social Fam HX - Past Medical History Medical history: atrial fibrillation, cancer, cirrhosis (new dx), CHF, COPD, DVT , diabetes, GERD, hyperlipidemia, hypertension Additional medical history: HEADACHES,SLEEP APNEA,LOW TSH Psychiatric history: no psych history - Past Surgical History Surgical History: , cholecystectomy, pacemaker/AICD Additional surgical history: BACK SURGERY, , PACEMAKER 2013, STAPH INFECTION 2014 - Social History Smoking Status: Never smoker Smokeless Tobacco Status: No Alcohol use: none Drug use: none - Family History Mother Adopted: No Living Status: Hx Family Cardiac Disorders: No Hx Family Respiratory Disorders: No Hx Family Cancer: Yes (colon cancer) Hx Family GI Disorders: Yes Hx Family Endocrine Disorder: No Hx Family Neuromuscular Disorders: No Hx Family Neurologic Disorders: No Hx Family HEENT Disorders: No Hx Family Autoimmune Disorders: No Father History Unknown: Yes Adopted: No Living Status: Hx Family Cardiac Disorders: Yes Hx Family Respiratory Disorders: No Hx Family Cancer: No Hx Family GI Disorders: No Hx Family Endocrine Disorder: No Hx Family Neuromuscular Disorders: No Hx Family Neurologic Disorders: Yes (stroke) Hx Family HEENT Disorders: No Hx Family Autoimmune Disorders: No - Gastrointestinal Gastrointestinal: Present: as per HPI - Constitutional Constitutional: as per HPI - EENT Eyes: as per HPI Ears: Present: as per HPI Nose, mouth and throat: Present: as per HPI - Cardiovascular Cardiovascular ROS: Present: as per HPI - Respiratory Respiratory IM: Present: as per HPI - Genitourinary Genitourinary: Absent: change in color, Urinary frequency - Neurological ROS Neurological GI: Present: as per HPI - Hematologic/Lymphatic Hematologic/Lymphatic pediatric: Present: as per HPI - Musculoskeletal Musculoskeletal ROS GI: Present: as per HPI - Integumentary Integumentary GI: Present: as per HPI - Psychiatric ROS Psychiatric GI: Present: as per HPI - Endocrine Endocrine IM: Present: as per HPI - Constitutional Vitals: Temp Pulse Resp BP Pulse Ox 98.0 F 80 18 124/81 97 05/24/18 07:15 05/24/18 07:15 05/24/18 09:51 05/24/18 07:15 05/24/18 09:51 General appearance: Present: cooperative, A&O X 3, no acute distress, answers questions appropriately - Head Head exam: Present: atraumatic, normocephalic - Eye Eye exam: Present: normal appearance, sclera anicteric - ENT ENT exam: Present: mucous membranes moist - Neck Neck exam general surgery: Present: normal inspection, trachea midline - Respiratory Respiratory exam: Present: decreased breath sounds, CTAB - Cardiovascular Cardiovascular exam: Present: RRR, +S1, +S2 - GI/Abdominal GI/Abdominal exam: Present: distended, soft, tenderness (mild epigastric and RUQ ), no peritoneal signs. Absent: firm, guarding - Rectal Rectal exam: Present: deferred - Extremities Exam Extremities exam: Present: warm - Neurological Exam Neurological exam: Present: no focal deficits - Psychiatric Psychiatric exam: Present: normal affect, normal mood - Skin Skin exam: Present: dry, intact, normal color, warm Results - Labs CBC & Chem 7: 05/24/18 03:43 05/23/18 03:34 Labs: Last Result Calcium 8.9 mg/dL (8.6-10.3) 05/23/18 03:34 Troponin I < 0.03 ng/mL (< 0.04) 05/19/18 17:29 Entire Visit Hgb 13.6 g/dL (11.5-15.4) 05/24/18 03:43 Hct 42.2 % (35.3-44.9) 05/24/18 03:43 PT 25.9 Seconds (9.4-12.1) H 05/24/18 03:43 Total Bilirubin 2.0 mg/dL (0.3-1.0) H 05/20/18 03:58 AST 12 Units/L (13-39) L 05/20/18 03:58 ALT 9 Units/L (7-52) 05/20/18 03:58 Lipase 63 Units/L (11-82) 05/18/18 22:49 - ABG ABG results: PT/INR, D-dimer PT 25.9 Seconds (9.4-12.1) H 05/24/18 03:43 Consult Discharge Plan - Plan Referrals: Desi Cornell [Primary Care Provider] - 06/07/18 9:15 am <Meghna Denton - Last Filed: 05/24/18 17:55> Date of Encounter: 05/24/18 Time of Encounter: 14:00 - Time Spent With Patient Total time spent is greater than 50% in coordination of care (as documented) at patient's floor/unit and/or counseling patient: GI History of Present Illness - Data of Consult Requesting Physician: Lilia Muñoz MD - Consult Narrative History of present illness: Ms. Jasmine is a 67 year old female - Constitutional Vitals: Temp Pulse Resp BP Pulse Ox 97.5 F L 75 18 104/57 96 05/24/18 14:52 05/24/18 14:52 05/24/18 15:30 05/24/18 14:52 05/24/18 15:30 Results - Labs CBC & Chem 7: 05/24/18 03:43 05/24/18 12:02 Labs: Last Result Calcium 9.0 mg/dL (8.6-10.3) 05/24/18 12:02 Ferritin 59 ng/mL (10-120) 05/24/18 12:02 Troponin I < 0.03 ng/mL (< 0.04) 05/19/18 17:29 Entire Visit Hgb 13.6 g/dL (11.5-15.4) 05/24/18 03:43 Hct 42.2 % (35.3-44.9) 05/24/18 03:43 PT 25.9 Seconds (9.4-12.1) H 05/24/18 03:43 Ferritin 59 ng/mL (10-120) 05/24/18 12:02 Total Bilirubin 1.1 mg/dL (0.3-1.0) H 05/24/18 12:02 AST 12 Units/L (13-39) L 05/24/18 12:02 ALT 9 Units/L (7-52) 05/24/18 12:02 Lipase 63 Units/L (11-82) 05/18/18 22:49 - ABG ABG results: PT/INR, D-dimer PT 25.9 Seconds (9.4-12.1) H 05/24/18 03:43 - Attending Attestation I have personally performed a face to face evaluation on this patient. I have reviewed and agree with the care plan. History and Exam by me shows: Patient seen. On examination does has a large abdomen and patient is very obese. Assessment: Patient with cirrhosis with a meld sodium score of 20 with ascites and peripheral edema. Had recent EGD done at [facility]. REc: Adjustment of diuretics dosage including lasix/aldactone. f/u gi as out pt.
[2018-05-24 11:21] LABS: BUN/Creatinine Ratio 21 (6-26); Blood Urea Nitrogen 19 mg/dL (8-23); Carbon Dioxide 25 mEq/L (23-29); Chloride 101 mEq/L (98-107); Glucose 387 mg/dL (70-105); Osmolality,Calculated 292 (280-300); Potassium 4.2 mEq/L (3.5-5.1); Sodium 132 mEq/L (136-145); eGFR For Non-African Americans > 60 (> 60)
--- NOTE | 2018-05-24 12:30 | Internal Med Progress Note ---
Hospitalist Progress Note - Encounter Date of Encounter: 05/24/18 Time of Encounter: 12:32 - Subjective Interval History: Seen and examined at bedside, has complaints of abdominal swelling and pain due to ascites, reports discomfort improving. Continues to have orthopnea, Also has fluid overload with CHF and BLE swelling. - Exam Vitals: Temp Pulse Resp BP Pulse Ox 96.7 F L 77 16 111/84 96 05/24/18 11:29 05/24/18 11:29 05/24/18 11:29 05/24/18 11:29 05/24/18 11:29 Exam: PHYSICAL EXAMINATION: GENERAL: The patient is an ill-appearing obese female in mild distress due to abdominal swelling and abdominal discomfort. She is alert and oriented x3. HEENT: Head is normocephalic and atraumatic. Extraocular muscles are intact. Pupils are equal, round, and reactive to light and accommodation. Nares appeared normal. Mouth is well hydrated and without lesions. Mucous membranes are moist. NECK: Supple. No carotid bruits. No lymphadenopathy or thyromegaly. LUNGS: Clear/diminished to auscultation, without rales. HEART: RRR, S1, S2 without murmur. ABDOMEN: Distended abdomen, tympanic to percussion, nontender, Positive bowel sounds. Ascites EXTREMITIES: Without any cyanosis, clubbing, rash, lesions. Edematous all over , bilateral lower extremity 2+ pitting edema NEUROLOGIC: Without facial droop or slurred speech SKIN: No ulceration or induration present. - Assessment and Plan (1) Spontaneous bacterial peritonitis Current Visit: Yes Status: Ruled-out (2) Pericardial effusion Current Visit: Yes Status: Acute Assessment and Plan: Small-moderate pericardial effusion present No evidence of hemodynamic compromise No evidence of tamponade Serial troponin trended negative 3 Continue to closely monitor continue diuresis cardiology rec f/u TTE as clinically indicated or as outpatient, cardio has signed off and will arrange outpatient f/u (3) Atrial fibrillation Current Visit: Yes Status: Chronic Assessment and Plan: Per history, has pacemaker, Continue home meds as appropriate. cont warfarin pt to dose; INR therapeutic (4) Ascites Current Visit: Yes Status: Acute Assessment and Plan: MELD-Na 20, Child-Archibald class B. 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 Persistent ascites, US revealing small amount of ascites, unable to perform paracentesis 05/20/18 GI following and consultation; recommend increasing Aldactone to 100 mg daily and continuing Lasix 40 mg daily will need outpatient f/u; has yet to establish; request appointment at discharge NPO now, liver US this afternoon (5) Acute exacerbation of CHF (congestive heart failure) Current Visit: No Status: Acute Assessment and Plan: Exacerbation of heart failure, unclear whether systolic or diastolic, see TTE results below Fluid overload with abdominal swelling, bilateral lower extremity 2+ pitting edema TTE findings are as follows Technically challenging due to body habitus. Grossly, LV systolic function appears normal. Indeterminate diastolic function. RV is not well evaluated. Severely dilated left atrium. Mild tricuspid regurgitation. Mild pulmonary hypertension by TR gradient. IVC not well visualized to estimate RVSP. There is a small to moderate pericardial effusion present. There is no echocardiographic evidence of tamponade. Continue diuretics, fluid restriction 1.5 liter, daily weights, and insert curtis catheter for strict I&O monitoring, net negative fluid volume - 120ml (6) Fluid overload Current Visit: Yes Status: Acute Assessment and Plan: See above (7) DVT prophylaxis Current Visit: Yes Status: Acute Assessment and Plan: Continue EPCD's - Time Spent with Patient Total time spent is greater than 50% in coordination of care (as documented) at patient's floor/unit and/or counseling patient: less than 15 minutes Plan of Care Discussed with: patient Internal Medicine: Result - Labs CBC & Chem 7: 05/24/18 03:43 05/24/18 10:48 Labs: Short CBC 05/24/18 Range/Units 03:43 WBC 8.0 (4.3-11.1) K/mcL Hgb 13.6 (11.5-15.4) g/dL Hct 42.2 (35.3-44.9) % Plt Count 214 (140-400) K/mcL Neutrophils # 5.3 (1.6-8.9) K/mcL BMP 05/24/18 10:48 Sodium 132 L Potassium 4.2 Chloride 101 Carbon Dioxide 25 BUN 19 Creatinine 0.91 Glucose 387 H Calcium 9.0 - ABG Interpretation ABG results: PT/INR, D-dimer PT 25.9 Seconds (9.4-12.1) H 05/24/18 03:43 - VTE Reasons for not Prescribing Prophylaxis: Not indicated-Anticoagulated or INR therapeutic Consult Discharge Plan - Plan Referrals: Desi Cornell [Primary Care Provider] - 06/07/18 9:15 am (3) Atrial fibrillation Qualifiers: Atrial fibrillation type: chronic Qualified Code(s): I48.2 - Chronic atrial fibrillation (4) Ascites Qualifiers: Ascites type: other type Qualified Code(s): R18.8 - Other ascites (6) Fluid overload Qualifiers: Hypervolemia type: unspecified Qualified Code(s): E87.70 - Fluid overload, unspecified
[2018-05-24 12:35] LABS: Alanine Aminotransferase 9 Units/L (7-52); Albumin 3.7 g/dL (3.5-5.7); Albumin/Globulin Ratio 1.4 (1.1-2.2); Alkaline Phosphatase 72 Units/L (34-104); Aspartate Amino Transferase 12 Units/L (13-39); BUN/Creatinine Ratio 23 (6-26); Bilirubin,Total 1.1 mg/dL (0.3-1.0); Blood Urea Nitrogen 19 mg/dL (8-23); Carbon Dioxide 24 mEq/L (23-29); Chloride 101 mEq/L (98-107); Globulin 2.6 g/dL (2.4-3.5); Glucose 359 mg/dL (70-105); Osmolality,Calculated 291 (280-300); Potassium 4.2 mEq/L (3.5-5.1); Sodium 132 mEq/L (136-145); Total Protein 6.3 g/dL (6.4-8.9); eGFR For Non-African Americans > 60 (> 60)
[2018-05-24 13:32] LABS: Hepatitis A Antibody IgM Nonreactive (Nonreactive); Hepatitis B Core IgM Nonreactive (Nonreactive); Hepatitis B Surface Antigen Nonreactive (Nonreactive); Hepatitis C Virus Antibody Nonreactive (Nonreactive)
[2018-05-24] MEDS ORDERED: *HR* Warfarin 5 MG TABLET PO ONE (18:00)
[2018-05-25] MEDS: OXYCODONE Oral CONC 10 MG/0.5 ML ORAL.SYG SL PRN ×3 (02:43→20:02)
[2018-05-25] MEDS: Albuterol 2.5 MG/3 ML NEBULIZER IH SCH ×4 (03:53→22:02)
[2018-05-25 07:04] LABS: INR 2.7; Prothrombin Time 30.9 Seconds (9.4-12.1)
[2018-05-25 07:22] LABS: BUN/Creatinine Ratio 27 (6-26); Blood Urea Nitrogen 21 mg/dL (8-23); Calcium 9.1 mg/dL (8.6-10.3); Carbon Dioxide 23 mEq/L (23-29); Chloride 102 mEq/L (98-107); Glucose 297 mg/dL (70-105); Osmolality,Calculated 292 (280-300); Potassium 4.4 mEq/L (3.5-5.1); Sodium 134 mEq/L (136-145); eGFR For Non-African Americans > 60 (> 60)
[2018-05-25] MEDS: Furosemide 40 MG TABLET PO SCH (08:34)
[2018-05-25] MEDS: Aspirin Enteric Coated 81 MG Tablet PO SCH (08:34)
[2018-05-25] MEDS: Insulin LISPRO 300 UNITS/3 ML VIAL SQ SCH ×3 (08:35→17:43)
[2018-05-25] MEDS: Budesonide Neb 0.5 MG/2 ML IH SCH ×2 (10:36→22:02)
--- NOTE | 2018-05-25 14:07 | Internal Med Progress Note ---
Hospitalist Progress Note - Encounter Date of Encounter: 05/25/18 Time of Encounter: 09:35 - Subjective Interval History: Pt was seen and assessed at bedside at 0935. Pt is exceptionally pleasant, 2 family members at bedside. All questions answered. Pt reports improvement of symptoms, but states that she is not back to her baseline. We discussed her fluid restriction and pt states that she is not drinking her allotted amount and is actually drinking less than 1 liter. Pt states that she was told that could be retaining fluid from nebulizer treatments, we discussed this, however, pt states that she does not want to do breathing treatments anymore because she doesn't need them. She denies headache, n/v/d,diaphoresis, abdominal pain, peripheral edema. Pt reports abdominal distention and SOB related to it. - Exam Vitals: Temp Pulse Resp BP Pulse Ox 98.0 F 79 16 117/81 94 05/25/18 11:30 05/25/18 11:30 05/25/18 11:30 05/25/18 11:30 05/25/18 11:30 Exam: General: Pt resting quietly on bed, no distress. Skin: pwd, no rashes, lesions, redness Neurological: Pt is alert and awake, oriented x 3, Speech is clear, PERRLA, EOMI , no nystagmus, no pronator drift. strength equal x 4 extremities HEENT: mucous mumbranes moist, no conjuctival pallor Neck: supple, no tracheal deviation, no lymphadenopathy, tenderness, no thyromegaly Heart: S1S2 heard without gallops, clicks, murmurs, no bradycardia or tachycardia, pt has no peripheral edema, pedal and radial pulses palpable bilaterally. Lungs: clear throughout without wheezing, rales, or ronchi, respirations are unlabored Abdomen: soft and non tender with bowel sound present, abdomen distended, firm Psych: Normal affect with good eye contact - Assessment and Plan (1) DVT prophylaxis Current Visit: Yes Status: Acute Assessment and Plan: Continue EPCD's (2) Acute exacerbation of CHF (congestive heart failure) Current Visit: Yes Status: Acute Assessment and Plan: Exacerbation of heart failure, unclear whether systolic or diastolic, see TTE results below Fluid overload with abdominal swelling, bilateral lower extremity 3+ pitting edema TTE findings are as follows: Technically challenging due to body habitus. Grossly, LV systolic function appears normal. Indeterminate diastolic function. RV is not well evaluated. Severely dilated left atrium. Mild tricuspid regurgitation. Mild pulmonary hypertension by TR gradient. IVC not well visualized to estimate RVSP. There is a small to moderate pericardial effusion present. There is no echocardiographic evidence of tamponade. Continue diuretics, fluid restriction 1.5 liter, daily weights, and insert curtis catheter for strict I&O monitoring, net positive fluid volume +2.6 liters , approximately 2.4 kg weight gain, though weights are likely not accurate. 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 Liver ultrasound showed a questionable 1.7 cm hyperechoic lesion in left hepatic lobe seen only one single image, it was not seen on recent CT. Recommended dedicated liver MRI for further evaluation. Continue to diurese and follow up with outpatient evaluation of lesion. (4) Fluid overload Current Visit: Yes Status: Acute Assessment and Plan: Plan as above. (5) Pericardial effusion Current Visit: Yes Status: Acute Assessment and Plan: Small-moderate pericardial effusion present on echo dated 05/19/18 No evidence of hemodynamic compromise or tamponade Serial troponin trended negative 3 Continue to closely monitor Continue telemetry Continue diuresis as above Cardiology recommends f/u TTE as clinically indicated or as outpatient, cardio has signed off and will arrange outpatient f/u (6) Atrial fibrillation Current Visit: Yes Status: Chronic Assessment and Plan: Per history, has pacemaker Continue home meds. Cont warfarin, pharmacy to dose; INR therapeutic 2.7 (7) Spontaneous bacterial peritonitis Current Visit: Yes Status: Ruled-out DVT Prophylaxis: Pt on Warfarin - Time Spent with Patient Total time spent is greater than 50% in coordination of care (as documented) at patient's floor/unit and/or counseling patient: less than 15 minutes Plan of Care Discussed with: family Internal Medicine: Result - Labs CBC & Chem 7: 05/24/18 03:43 05/25/18 05:20 Labs: BMP 05/25/18 05:20 Sodium 134 L Potassium 4.4 Chloride 102 Carbon Dioxide 23 BUN 21 Creatinine 0.79 Glucose 297 H Calcium 9.1 - ABG Interpretation ABG results: PT/INR, D-dimer PT 30.9 Seconds (9.4-12.1) H 05/25/18 05:20 - Impressions Impressions Liver Ultrasound 05/24/18 18:00 IMPRESSION: Cirrhotic morphology liver. Questionable 1.7 cm hyperechoic lesion left hepatic lobe seen only on a single image. A discrete lesion was not seen on recent CT. Would recommend dedicated liver MRI with Gad[facility] for further evaluation. Small volume ascites. D/ / 05/24/2018 18:52:56 Constance Delgado MD / josh Interpreting Provider: Constance Delgado MD - VTE Reasons for not Prescribing Prophylaxis: Not indicated-Anticoagulated or INR therapeutic Documentation of Mechanical Device: Intermittent pneumatic compression device Consult Discharge Plan - Plan Referrals: Desi Cornell [Primary Care Provider] - 06/07/18 9:15 am (3) Ascites Qualifiers: Ascites type: other type Qualified Code(s): R18.8 - Other ascites (4) Fluid overload Qualifiers: Hypervolemia type: unspecified Qualified Code(s): E87.70 - Fluid overload, unspecified (6) Atrial fibrillation Qualifiers: Atrial fibrillation type: chronic Qualified Code(s): I48.2 - Chronic atrial fibrillation
[2018-05-25] MEDS ORDERED: *HR* Warfarin 2.5 MG TABLET PO ONE (18:00)
[2018-05-25] MEDS: Insulin DETEMIR 100 UNIT/ML X5UNITS SQ SCH (21:52)
[2018-05-26] MEDS: OXYCODONE Oral CONC 10 MG/0.5 ML ORAL.SYG SL PRN ×3 (03:18→23:03)
[2018-05-26] MEDS: Albuterol 2.5 MG/3 ML NEBULIZER IH SCH ×5 (04:05→21:19)
[2018-05-26 05:57] LABS: INR 2.9
[2018-05-26 06:06] LABS: BUN/Creatinine Ratio 29 (6-26); Blood Urea Nitrogen 24 mg/dL (8-23); Calcium 9.2 mg/dL (8.6-10.3); Carbon Dioxide 23 mEq/L (23-29); Chloride 102 mEq/L (98-107); Glucose 307 mg/dL (70-105); Osmolality,Calculated 294 (280-300); Potassium 4.4 mEq/L (3.5-5.1); Sodium 134 mEq/L (136-145); eGFR For Non-African Americans > 60 (> 60)
[2018-05-26] MEDS: Furosemide 40 MG TABLET PO SCH (09:32)
[2018-05-26] MEDS: Aspirin Enteric Coated 81 MG Tablet PO SCH (09:33)
[2018-05-26] MEDS: Insulin LISPRO 300 UNITS/3 ML VIAL SQ SCH ×3 (09:33→19:18)
[2018-05-26] MEDS ORDERED: Gadolinium Contrast Agent (WT Based) IV PRN (10:11)
[2018-05-26 11:02] LABS: AFP Tumor Marker Non-Pregnant 2 ng/mL (0-9); ANA IgG by ELISA NONE DETECTED (None Detected); F-Actin (sm muscle) Ab IgG 9 Units (0-19); Myeloperoxidase Ab 0 AU/mL (0-19); Serine Protease-3 Antibody 0 AU/mL (0-19)
[2018-05-26] MEDS: Budesonide Neb 0.5 MG/2 ML IH SCH ×2 (11:22→21:19)
[2018-05-26] MEDS ORDERED: Isovue-370 500 ML INFUS..BTL IV ONE (14:42)
[2018-05-26] MEDS ORDERED: *HR* Warfarin 2.5 MG TABLET PO ONE (18:00)
--- NOTE | 2018-05-26 18:14 | Internal Med Progress Note ---
Hospitalist Progress Note - Encounter Date of Encounter: 05/26/18 Time of Encounter: 09:50 - Subjective Interval History: Pt was seen and assessed at bedside at 0950. Pt is exceptionally pleasant, 2 family members at bedside again today. All questions answered. Pt reports improvement of symptoms, but states that she is not back to her baseline. Today she reports RUQ tenderness and states, "it feels like my liver is catching in my ribs." She denies headache, n/v/d,diaphoresis, abdominal pain, peripheral edema. Pt reports abdominal distention and SOB related to it. - Exam Vitals: Temp Pulse Resp BP Pulse Ox 97.5 F L 78 16 130/85 94 05/26/18 12:10 05/26/18 15:07 05/26/18 15:07 05/26/18 15:07 05/26/18 15:07 Exam: General: Pt resting quietly on bed, no distress. Skin: pwd, no rashes, lesions, redness Neurological: Pt is alert and awake, oriented x 3, Speech is clear, PERRLA, EOMI , no nystagmus, no pronator drift. strength equal x 4 extremities HEENT: mucous mumbranes moist, no conjuctival pallor Neck: supple, no tracheal deviation, no lymphadenopathy, tenderness, no thyromegaly Heart: S1S2 heard without gallops, clicks, murmurs, no bradycardia or tachycardia, pt has no peripheral edema, pedal and radial pulses palpable bilaterally. Lungs: clear throughout without wheezing, rales, or ronchi, respirations are unlabored Abdomen: soft and non tender with bowel sound present, abdomen distended, firm, tender to palpation in RUQ Psych: Normal affect with good eye contact - Assessment and Plan (1) DVT prophylaxis Current Visit: Yes Status: Acute Assessment and Plan: SCDs ordered. (2) Acute exacerbation of CHF (congestive heart failure) Current Visit: Yes Status: Acute Assessment and Plan: Exacerbation of heart failure, unclear whether systolic or diastolic, see TTE results below Fluid overload with abdominal swelling, bilateral lower extremity 3+ pitting edema, seems to have improved some today, pt verbalizes improvement TTE findings are as follows: Technically challenging due to body habitus. Grossly, LV systolic function appears normal. Indeterminate diastolic function. RV is not well evaluated. Severely dilated left atrium. Mild tricuspid regurgitation. Mild pulmonary hypertension by TR gradient. IVC not well visualized to estimate RVSP. There is a small to moderate pericardial effusion present. There is no echocardiographic evidence of tamponade. Continue diuretics, fluid restriction 1.5 liter, daily weights, and insert curtis catheter for strict I&O monitoring, -230ml fluid deficit in last 24 hours but overall still fluid excess since admission, approximately 2.4 kg weight gain , though weights are likely not accurate. 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 Reconsulted today 05/26 for results of liver US and pt c/o RUQ tenderness and fullness that she did not report previously. Pt cannot have MRI due to pacer, will have CT abd with and without contrast. Pt will need to follow up with GI after discharge. Liver ultrasound showed a questionable 1.7 cm hyperechoic lesion in left hepatic lobe seen only one single image, it was not seen on recent CT. Recommended dedicated liver MRI for further evaluation. Continue to diurese and follow up with outpatient evaluation of lesion. (4) Fluid overload Current Visit: Yes Status: Acute Assessment and Plan: Plan as above. (5) Pericardial effusion Current Visit: Yes Status: Acute Assessment and Plan: Small-moderate pericardial effusion present on echo dated 05/19/18 No evidence of hemodynamic compromise or tamponade Serial troponin trended negative 3 Continue to closely monitor Continue telemetry Continue diuresis as above Cardiology recommends f/u TTE as clinically indicated or as outpatient, cardio has signed off and will arrange outpatient f/u Pt denies chest pain, NSR on monitor. (6) Atrial fibrillation Current Visit: Yes Status: Chronic Assessment and Plan: Per history, has pacemaker Continue home meds. Cont warfarin, pharmacy to dose; INR therapeutic 2.9 (7) Spontaneous bacterial peritonitis Current Visit: Yes Status: Ruled-out Assessment and Plan: Resolved. Cirrhosis, abdominal pain/distention and ascites Upon presentation initially Suspected SBP based on clinical presentation and abdominal tenderness abdominal tenderness has ceased, swelling and tenderness likely associated with cirrhosis; low suspicion-monitor blood cultures Cipro and Flagyl stopped; has remained afebrile, does not appear toxic and now leukocytosis DVT Prophylaxis: above - Time Spent with Patient Total time spent is greater than 50% in coordination of care (as documented) at patient's floor/unit and/or counseling patient: less than 15 minutes Plan of Care Discussed with: family Internal Medicine: Result - Labs CBC & Chem 7: 05/24/18 03:43 05/26/18 03:57 Labs: BMP 05/26/18 03:57 Sodium 134 L Potassium 4.4 Chloride 102 Carbon Dioxide 23 BUN 24 H Creatinine 0.82 Glucose 307 H Calcium 9.2 - ABG Interpretation ABG results: PT/INR, D-dimer PT 33.0 Seconds (9.4-12.1) H 05/26/18 03:57 - Impressions Impressions Liver Ultrasound 05/24/18 18:00 IMPRESSION: Cirrhotic morphology of the liver. Questionable 1.7 cm hyperechoic lesion left hepatic lobe seen only on a single image. A discrete lesion was not seen on recent CT. Would recommend dedicated liver MRI with Gad[facility] for further evaluation. Small volume ascites. D/ 05/24/2018 18:52:56 Constance Delgado MD / josh Interpreting Provider: Constance Delgado MD - VTE Reasons for not Prescribing Prophylaxis: Not indicated-Anticoagulated or INR therapeutic Documentation of Mechanical Device: Intermittent pneumatic compression device Consult Discharge Plan - Plan Referrals: Desi Cornell [Primary Care Provider] - 06/07/18 9:15 am (3) Ascites Qualifiers: Ascites type: other type Qualified Code(s): R18.8 - Other ascites (4) Fluid overload Qualifiers: Hypervolemia type: unspecified Qualified Code(s): E87.70 - Fluid overload, unspecified (6) Atrial fibrillation Qualifiers: Atrial fibrillation type: chronic Qualified Code(s): I48.2 - Chronic atrial fibrillation
[2018-05-26] MEDS: Insulin DETEMIR 100 UNIT/ML X5UNITS SQ SCH (20:38)
[2018-05-27 04:16] LABS: BUN/Creatinine Ratio 31 (6-26); Blood Urea Nitrogen 24 mg/dL (8-23); Calcium 9.5 mg/dL (8.6-10.3); Carbon Dioxide 26 mEq/L (23-29); Chloride 101 mEq/L (98-107); Glucose 266 mg/dL (70-105); Osmolality,Calculated 293 (280-300); Potassium 4.2 mEq/L (3.5-5.1); Sodium 135 mEq/L (136-145); eGFR For Non-African Americans > 60 (> 60)
[2018-05-27] MEDS: Albuterol 2.5 MG/3 ML NEBULIZER IH SCH (04:31)
[2018-05-27] MEDS ORDERED: Albuterol 2.5 MG/3 ML NEBULIZER IH PRN (07:58)
[2018-05-27] MEDS ORDERED: Budesonide Neb 0.5 MG/2 ML IH PRN (07:59)
[2018-05-27] MEDS: Insulin LISPRO 300 UNITS/3 ML VIAL SQ SCH ×3 (08:38→17:23)
[2018-05-27] MEDS: Furosemide 40 MG TABLET PO SCH (08:40)
[2018-05-27] MEDS: Aspirin Enteric Coated 81 MG Tablet PO SCH (08:40)
--- NOTE | 2018-05-27 17:09 | Internal Med Progress Note ---
Hospitalist Progress Note - Encounter Date of Encounter: 05/27/18 Time of Encounter: 10:45 - Subjective Interval History: Pt was seen and assessed at bedside at 1045. Pt is exceptionally pleasant, at bedside again today. All questions answered. Pt reports improvement of symptoms, but states that she is not back to her baseline. Pt is tearful today and states that she feels discouraged. She denies headache, n/v/d, diaphoresis, abdominal pain, peripheral edema. Pt reports abdominal distention and SOB related to it. - Exam Vitals: Temp Pulse Resp BP Pulse Ox 97.7 F 80 16 105/73 94 05/27/18 16:10 05/27/18 16:10 05/27/18 16:10 05/27/18 16:10 05/27/18 16:10 Exam: General: Pt resting quietly on bed, no distress. Skin: pwd, no rashes, lesions, redness Neurological: Pt is alert and awake, oriented x 3, Speech is clear, PERRLA, EOMI , no nystagmus, no pronator drift. strength equal x 4 extremities HEENT: mucous mumbranes moist, no conjuctival pallor Neck: supple, no tracheal deviation, no lymphadenopathy, tenderness, no thyromegaly Heart: S1S2 heard without gallops, clicks, murmurs, no bradycardia or tachycardia, pt has no peripheral edema, pedal and radial pulses palpable bilaterally. Lungs: clear throughout without wheezing, rales, or ronchi, respirations are unlabored Abdomen: soft and non tender with bowel sound present, abdomen distended, firm, tender to palpation in RUQ, abdomen obese Psych: Normal affect with good eye contact - Assessment and Plan (1) DVT prophylaxis Current Visit: Yes Status: Acute Assessment and Plan: SCDs ordered. (2) Acute exacerbation of CHF (congestive heart failure) Current Visit: Yes Status: Acute Assessment and Plan: Exacerbation of heart failure, unclear whether systolic or diastolic, see TTE results below Fluid overload with abdominal swelling, bilateral lower extremity 3+ pitting edema, seems to have improved some today, pt verbalizes improvement TTE findings are as follows: Technically challenging due to body habitus. Grossly, LV systolic function appears normal. Indeterminate diastolic function. RV is not well evaluated. Severely dilated left atrium. Mild tricuspid regurgitation. Mild pulmonary hypertension by TR gradient. IVC not well visualized to estimate RVSP. There is a small to moderate pericardial effusion present. There is no echocardiographic evidence of tamponade. Continue Aldactone 100mg po daily and Lasix 40mg IV daily, fluid restriction 1.5 liter, daily weights, and insert curtis catheter for strict I&O monitoring, fluid intake not monitored for the last 24 hours, but overall still remains in fluid excess since admission, approximately 2.4 kg weight gain, though weights are likely not accurate. 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 Liver ultrasound showed a questionable 1.7 cm hyperechoic lesion in left hepatic lobe seen only one single image, it was not seen on recent CT. Recommended dedicated liver MRI for further evaluation. Reconsulted 05/26 for results of liver US and pt c/o RUQ tenderness and fullness that she did not report previously. Pt cannot have MRI due to pacer CT abdomen with and without contrast showed cirrhotic morphology liver with moderate amount of abdominal ascites and mesenteric edema. No focal hepatic lesion was identified. Again noted were bilateral pleural effusions with associated airspace disease, greater on left, atelectasis and/or pneumonia. Pericardial effusion remained stable. Pt will need to follow up with GI after discharge. Continue to diurese and follow up with outpatient evaluation of lesion. (4) Fluid overload Current Visit: Yes Status: Acute Assessment and Plan: Plan as above. (5) Pericardial effusion Current Visit: Yes Status: Acute Assessment and Plan: Small-moderate pericardial effusion present on echo dated 05/19/18 No evidence of hemodynamic compromise or tamponade Serial troponin trended negative [address] abdomen 05/26. Continue telemetry Continue diuresis as above Cardiology recommends f/u TTE as clinically indicated or as outpatient, cardio has signed off and will arrange outpatient f/u Pt denies chest pain, NSR on monitor. (6) Atrial fibrillation Current Visit: Yes Status: Chronic Assessment and Plan: Per history, has pacemaker Continue home meds. Cont warfarin, pharmacy to dose; INR therapeutic 3.0 (7) Spontaneous bacterial peritonitis Current Visit: Yes Status: Ruled-out DVT Prophylaxis: See above - Time Spent with Patient Total time spent is greater than 50% in coordination of care (as documented) at patient's floor/unit and/or counseling patient: less than 15 minutes Plan of Care Discussed with: patient Internal Medicine: Result - Labs CBC & Chem 7: 05/24/18 03:43 05/27/18 02:55 Labs: BMP 05/27/18 02:55 Sodium 135 L Potassium 4.2 Chloride 101 Carbon Dioxide 26 BUN 24 H Creatinine 0.77 Glucose 266 H Calcium 9.5 - ABG Interpretation ABG results: PT/INR, D-dimer PT 34.0 Seconds (9.4-12.1) H 05/27/18 02:55 - Impressions Impressions Abdomen CT 05/26/18 14:42 IMPRESSION: Cirrhotic morphology liver with moderate amount of abdominal ascites and mesenteric edema. No focal hepatic lesion is identified. Again identified are bilateral pleural effusions with associated airspace disease, greater on left, atelectasis and/or pneumonia. Pericardial effusion is stable. D/ / Noris Hardwick Cha, MD / Noris Hardwick Cha, MD Interpreting Provider: Noris Hardwick Cha, MD - VTE Reasons for not Prescribing Prophylaxis: Not indicated-Anticoagulated or INR therapeutic Documentation of Mechanical Device: Intermittent pneumatic compression device Consult Discharge Plan - Plan Referrals: Desi Cornell [Primary Care Provider] - 06/07/18 9:15 am (3) Ascites Qualifiers: Ascites type: other type Qualified Code(s): R18.8 - Other ascites (4) Fluid overload Qualifiers: Hypervolemia type: unspecified Qualified Code(s): E87.70 - Fluid overload, unspecified (6) Atrial fibrillation Qualifiers: Atrial fibrillation type: chronic Qualified Code(s): I48.2 - Chronic atrial fibrillation
[2018-05-27] MEDS: Furosemide 40 MG/4 ML VIAL IVP SCH (17:21)
[2018-05-27] MEDS ORDERED: *HR* Warfarin 2.5 MG TABLET PO ONE (18:00)
[2018-05-27] MEDS: traMADol 50 MG TABLET PO PRN (21:00)
[2018-05-27] MEDS: Insulin DETEMIR 100 UNIT/ML X5UNITS SQ SCH (21:01)
[2018-05-28 03:13] LABS: INR 3.4; Prothrombin Time 38.9 Seconds (9.4-12.1)
[2018-05-28] MEDS: Insulin LISPRO 300 UNITS/3 ML VIAL SQ SCH ×4 (07:55→17:12)
[2018-05-28] MEDS: Furosemide 40 MG/4 ML VIAL IVP SCH ×2 (08:45→17:08)
[2018-05-28] MEDS: Aspirin Enteric Coated 81 MG Tablet PO SCH (08:48)
[2018-05-28 10:30] LABS: BUN/Creatinine Ratio 27 (6-26); Blood Urea Nitrogen 22 mg/dL (8-23); Calcium 9.3 mg/dL (8.6-10.3); Carbon Dioxide 20 mEq/L (23-29); Chloride 102 mEq/L (98-107); Glucose 355 mg/dL (70-105); Osmolality,Calculated 294 (280-300); Potassium 4.6 mEq/L (3.5-5.1); Sodium 133 mEq/L (136-145); eGFR For Non-African Americans > 60 (> 60)
--- NOTE | 2018-05-28 11:39 | Internal Med Progress Note ---
Hospitalist Progress Note - Encounter Date of Encounter: 05/28/18 Time of Encounter: 11:15 - Subjective Interval History: Pt was seen and assessed at bedside at 1115. Pt is exceptionally pleasant, and son at bedside again today. All questions answered. Pt reports improvement of symptoms, family notes that her gowns appear to fit better and that she is more talkative than she has been in the last few days. She denies headache, n/v/d,diaphoresis, abdominal pain, peripheral edema. Pt states that she feels like her legs are more edematous than before, however, I feel that they are better and family agrees. We discussed that if pt continues to improve , we will look at discharge tomorrow or Thursday. - Exam Vitals: Temp Pulse Resp BP Pulse Ox 97.4 F L 69 16 103/67 93 05/28/18 07:50 05/28/18 07:50 05/28/18 07:50 05/28/18 07:50 05/28/18 07:50 Exam: General: Pt resting quietly on bed, no distress. Pt appears to be well nourished , well kept. Skin: pwd, no rashes, lesions, redness Neurological: Pt is alert and awake, oriented x 3, Speech is clear, PERRLA, EOMI , no nystagmus, no pronator drift. strength equal x 4 extremities HEENT: mucous mumbranes moist, no conjuctival pallor Neck: supple, no tracheal deviation, no lymphadenopathy, tenderness, no thyromegaly Heart: S1S2 heard without gallops, clicks, murmurs, no bradycardia or tachycardia, pt has +2 pitting peripheral edema to BLE, pedal and radial pulses palpable bilaterally. Lungs: clear throughout without wheezing, rales, or ronchi, respirations are unlabored Abdomen: soft and non tender with bowel sound present, abdomen distended, firm, tender to palpation in RUQ, abdomen obese Psych: Normal affect with good eye contact - Assessment and Plan (1) DVT prophylaxis Current Visit: Yes Status: Acute Assessment and Plan: SCDs ordered. Pt is ambulatory in her room. (2) Acute exacerbation of CHF (congestive heart failure) Current Visit: Yes Status: Acute Assessment and Plan: Exacerbation of heart failure, unclear whether systolic or diastolic, see TTE results below Fluid overload with abdominal swelling, bilateral lower extremity 2+ pitting edema, seems to have improved some today, pt verbalizes improvement Pt is doing well with fluid restriction and edema appears to be improving, SOB has improved. TTE findings are as follows: Technically challenging due to body habitus. Grossly, LV systolic function appears normal. Indeterminate diastolic function. RV is not well evaluated. Severely dilated left atrium. Mild tricuspid regurgitation. Mild pulmonary hypertension by TR gradient. IVC not well visualized to estimate RVSP. There is a small to moderate pericardial effusion present. There is no echocardiographic evidence of tamponade. 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 Liver ultrasound showed a questionable 1.7 cm hyperechoic lesion in left hepatic lobe seen only one single image, it was not seen on recent CT. Recommended dedicated liver MRI for further evaluation. Reconsulted 05/26 for results of liver US and pt c/o RUQ tenderness and fullness that she did not report previously. Pt cannot have MRI due to pacer CT abdomen with and without contrast showed cirrhotic morphology liver with moderate amount of abdominal ascites and mesenteric edema. No focal hepatic lesion was identified. Again noted were bilateral pleural effusions with associated airspace disease, greater on left, atelectasis and/or pneumonia. Pericardial effusion remained stable. Pt will need to follow up with GI after discharge. Continue to diurese and follow up with outpatient evaluation of lesion. Pt reports less dyspnea/SOB, improving. (4) Fluid overload Current Visit: Yes Status: Acute Assessment and Plan: Improving. Plan as above. (5) Pericardial effusion Current Visit: Yes Status: Acute Assessment and Plan: Small-moderate pericardial effusion present on echo dated 05/19/18 No evidence of hemodynamic compromise or tamponade Serial troponin trended negative [address] abdomen 05/26. Continue telemetry Continue diuresis as above Repeat echo after discharge. Pt denies chest pain, NSR on monitor. (6) Atrial fibrillation Current Visit: Yes Status: Chronic Assessment and Plan: Per history, has pacemaker Continue home meds. Cont warfarin, pharmacy to dose; INR therapeutic 3.4 (7) Spontaneous bacterial peritonitis Current Visit: Yes Status: Ruled-out DVT Prophylaxis: See above - Time Spent with Patient Total time spent is greater than 50% in coordination of care (as documented) at patient's floor/unit and/or counseling patient: less than 15 minutes Plan of Care Discussed with: patient (Family at bedside, supportive and aware of plan of care.) Internal Medicine: Result - Labs CBC & Chem 7: 05/24/18 03:43 05/28/18 09:48 Labs: BMP 05/28/18 09:48 Sodium 133 L Potassium 4.6 Chloride 102 Carbon Dioxide 20 L BUN 22 Creatinine 0.81 Glucose 355 H Calcium 9.3 - ABG Interpretation ABG results: PT/INR, D-dimer PT 38.9 Seconds (9.4-12.1) H 05/28/18 02:56 - VTE Reasons for not Prescribing Prophylaxis: Not indicated-Anticoagulated or INR therapeutic Documentation of Mechanical Device: Intermittent pneumatic compression device Consult Discharge Plan - Plan Referrals: Desi Cornell [Primary Care Provider] - 06/07/18 9:15 am (3) Ascites Qualifiers: Ascites type: other type Qualified Code(s): R18.8 - Other ascites (4) Fluid overload Qualifiers: Hypervolemia type: unspecified Qualified Code(s): E87.70 - Fluid overload, unspecified (6) Atrial fibrillation Qualifiers: Atrial fibrillation type: chronic Qualified Code(s): I48.2 - Chronic atrial fibrillation
[2018-05-28] MEDS ORDERED: *HR* Warfarin 1 MG TABLET PO ONE (18:00)
[2018-05-28] MEDS: Insulin DETEMIR 100 UNIT/ML X5UNITS SQ SCH (20:29)
[2018-05-29] MEDS: Lactulose Oral Soln 20 GM/30 ML UDC PO SCH ×2 (00:18→20:28)
[2018-05-29] MEDS: traMADol 50 MG TABLET PO PRN (00:25)
[2018-05-29 04:16] LABS: Basophils % 0.3 %; Eosinophils # 0.1 K/mcL (0.0-0.6); Eosinophils % 0.9 %; Hematocrit 40.1 % (35.3-44.9); Hemoglobin 12.9 g/dL (11.5-15.4); Immature Granulocytes % 0.3 % (0-4); Lymphocytes # 1.7 K/mcL (0.6-4.6); Lymphocytes % 19.2 %; Mean Corpuscular HGB Conc 32.2 g/dL (31.6-35.5); Mean Corpuscular Hemoglobin 25.9 pg (28.0-33.3); Mean Corpuscular Volume 80.4 fL (83.0-100.0); Mean Platelet Volume 12.7 fL (9.4-12.4); Monocytes # 0.7 K/mcL (0.0-1.3); Monocytes % 8.2 %; Neutrophils # 6.2 K/mcL (1.6-8.9); Platelet Count 199 K/mcL (140-400); Red Blood Count 4.99 M/mcL (3.82-4.97); Red Cell Distribution Width 15.9 % (11.5-14.5); Segmented Neutrophils % 71.1 %
[2018-05-29 04:21] LABS: Prothrombin Time 33.6 Seconds (9.4-12.1)
[2018-05-29 04:34] LABS: BUN/Creatinine Ratio 29 (6-26); Blood Urea Nitrogen 20 mg/dL (8-23); Calcium 9.3 mg/dL (8.6-10.3); Carbon Dioxide 23 mEq/L (23-29); Chloride 105 mEq/L (98-107); Glucose 309 mg/dL (70-105); Osmolality,Calculated 286 (280-300); Potassium 3.9 mEq/L (3.5-5.1); Sodium 131 mEq/L (136-145); eGFR For Non-African Americans > 60 (> 60)
[2018-05-29] MEDS: Aspirin Enteric Coated 81 MG Tablet PO SCH (08:22)
[2018-05-29] MEDS: Insulin LISPRO 300 UNITS/3 ML VIAL SQ SCH ×3 (08:23→17:34)
[2018-05-29] MEDS: Furosemide 40 MG/4 ML VIAL IVP SCH (08:33)
--- NOTE | 2018-05-29 11:25 | Internal Med Progress Note ---
Hospitalist Progress Note - Encounter Date of Encounter: 05/29/18 Time of Encounter: 09:30 - Subjective Interval History: Pt was seen and assessed at bedside at 0930. Pt is exceptionally pleasant, and youngest son at bedside again today. All questions answered. Pt reports improvement of symptoms. She denies headache, n/v/d,diaphoresis, abdominal pain, dizziness, chest pain. she states that she still gets SOB with exertion, but states that it is pretty much back to her baseline where she is at home. We discussed that if pt continues to improve, we will look at discharge tomorrow or Thursday. - Exam Vitals: Temp Pulse Resp BP Pulse Ox 98.6 F 76 16 118/78 94 05/29/18 07:38 05/29/18 07:38 05/29/18 07:38 05/29/18 07:38 05/29/18 07:38 Exam: General: Pt resting quietly on bed, no distress. Pt appears to be well nourished , well kept. Skin: pwd, no rashes, lesions, redness Neurological: Pt is alert and awake, oriented x 3, Speech is clear, PERRLA, EOMI , no nystagmus, no pronator drift. strength equal x 4 extremities HEENT: mucous mumbranes moist, no conjuctival pallor Neck: supple, no tracheal deviation, no lymphadenopathy, tenderness, no thyromegaly Heart: S1S2 heard without gallops, clicks, murmurs, no bradycardia or tachycardia, pt has +2 pitting pretibial edema to BLE, pedal and radial pulses palpable bilaterally. Lungs: clear throughout without wheezing, rales, or ronchi, respirations are unlabored Abdomen: soft and non tender with bowel sound present, abdomen distended, firm, tender to palpation in RUQ, abdomen obese Psych: Normal affect with good eye contact - Assessment and Plan (1) DVT prophylaxis Current Visit: Yes Status: Acute Assessment and Plan: SCDs ordered. Pt is ambulatory in her room. (2) Acute exacerbation of CHF (congestive heart failure) Current Visit: Yes Status: Acute Assessment and Plan: Exacerbation of heart failure, unclear whether systolic or diastolic, see TTE results below Fluid overload with abdominal swelling, bilateral lower extremity 2+ pitting edema, seems to have improved some today, pt verbalizes improvement Pt is doing well with fluid restriction and edema appears to be improving, SOB has improved. TTE findings are as follows: Technically challenging due to body habitus. Grossly, LV systolic function appears normal. Indeterminate diastolic function. RV is not well evaluated. Severely dilated left atrium. Mild tricuspid regurgitation. Mild pulmonary hypertension by TR gradient. IVC not well visualized to estimate RVSP. There is a small to moderate pericardial effusion present. There is no echocardiographic evidence of tamponade. Continue Aldactone 100mg po daily, fluid restriction 1.5 liter, daily weights. Lasix dose held this a.m for hyponatremia, will restart at lowered dose, 40mg IV , for evening dose. 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 Pt has approximately -3.6 liter fluid deficit this a.m. 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 Liver ultrasound showed a questionable 1.7 cm hyperechoic lesion in left hepatic lobe seen only one single image, it was not seen on recent CT. Recommended dedicated liver MRI for further evaluation. Reconsulted 05/26 for results of liver US and pt c/o RUQ tenderness and fullness that she did not report previously. Pt cannot have MRI due to pacer CT abdomen with and without contrast showed cirrhotic morphology liver with moderate amount of abdominal ascites and mesenteric edema. No focal hepatic lesion was identified. Again noted were bilateral pleural effusions with associated airspace disease, greater on left, atelectasis and/or pneumonia. Pericardial effusion remained stable. Pt will need to follow up with GI after discharge. Continue to diurese and follow up with outpatient evaluation of lesion. Pt reports less dyspnea/SOB, improving. (4) Fluid overload Current Visit: Yes Status: Acute Assessment and Plan: Continuing to improve. Plan as above. (5) Pericardial effusion Current Visit: Yes Status: Acute Assessment and Plan: Small-moderate pericardial effusion present on echo dated 05/19/18 No evidence of hemodynamic compromise or tamponade Serial troponin trended negative [address] abdomen 05/26. Continue telemetry Continue diuresis as above Repeat echo after discharge. Pt denies chest pain, NSR on monitor. (6) Atrial fibrillation Current Visit: Yes Status: Chronic Assessment and Plan: Per history, has pacemaker S1S2 RRR Continue home meds. Cont warfarin, pharmacy to dose; INR therapeutic 3.0 (7) Spontaneous bacterial peritonitis Current Visit: Yes Status: Ruled-out (8) Peripheral edema Current Visit: Yes Status: Acute Assessment and Plan: Pt has had peripheral edema/fluid overload, secondary to CHF exacerbation, AYALA. Diuresis as above. Improving, pt had +2-+3 pitting peripheral edema to BLE, now has +2 pitting edema BLE pretibial area only. Continue diuresis. DVT Prophylaxis: Pt on Warfarin - Time Spent with Patient Total time spent is greater than 50% in coordination of care (as documented) at patient's floor/unit and/or counseling patient: less than 15 minutes Plan of Care Discussed with: patient Internal Medicine: Result - Labs CBC & Chem 7: 05/29/18 03:50 05/29/18 03:50 Labs: Short CBC 05/29/18 Range/Units 03:50 WBC 8.8 (4.3-11.1) K/mcL Hgb 12.9 (11.5-15.4) g/dL Hct 40.1 (35.3-44.9) % Plt Count 199 (140-400) K/mcL Neutrophils # 6.2 (1.6-8.9) K/mcL BMP 05/29/18 03:50 Sodium 131 L Potassium 3.9 Chloride 105 Carbon Dioxide 23 BUN 20 Creatinine 0.70 Glucose 309 H Calcium 9.3 Liver Function 05/29/18 Range/Units 03:50 Albumin 3.5 (3.5-5.7) g/dL - ABG Interpretation ABG results: PT/INR, D-dimer PT 33.6 Seconds (9.4-12.1) H 05/29/18 03:50 - VTE Reasons for not Prescribing Prophylaxis: Not indicated-Anticoagulated or INR therapeutic Documentation of Mechanical Device: Intermittent pneumatic compression device Consult Discharge Plan - Plan Referrals: Desi Cornell [Primary Care Provider] - 06/07/18 9:15 am (3) Ascites Qualifiers: Ascites type: other type Qualified Code(s): R18.8 - Other ascites (4) Fluid overload Qualifiers: Hypervolemia type: unspecified Qualified Code(s): E87.70 - Fluid overload, unspecified (6) Atrial fibrillation Qualifiers: Atrial fibrillation type: chronic Qualified Code(s): I48.2 - Chronic atrial fibrillation
[2018-05-29] MEDS: Furosemide 40 MG TABLET PO SCH (17:34)
[2018-05-29] MEDS ORDERED: GI Cocktail 40 ML EACH PO STA (17:42)
[2018-05-29] MEDS ORDERED: *HR* Warfarin 2.5 MG TABLET PO ONE (18:00)
[2018-05-29] MEDS ORDERED: Simethicone 80 MG TAB.CHEW PO PRN (22:52)
[2018-05-29] MEDS: Insulin DETEMIR 100 UNIT/ML X5UNITS SQ SCH (23:07)
[2018-05-29 23:08] LABS: Bilirubin,Urine Negative (Negative); Blood,Urine Negative (Negative); Clarity,Urine Clear (Clear); Color,Urine Yellow (Yellow); Glucose,Urine (UA) Normal (Normal); Ketones,Urine Negative (Negative); Leukocyte Esterase,Urine Small (Negative); Nitrite,Urine Negative (Negative); Protein,Urine Trace mg/dL (Neg-Trace); Specific Gravity,Urine 1.018 (1.010-1.025); Urobilinogen,Urine Normal (Normal)
[2018-05-29 23:11] LABS: Bacteria,Urine None Seen per hpf (None-Few); Hyaline Casts,Urine None Seen per lpf (None-Few); Squamous Epithelial Cell,Urine Many per lpf (None-Few); WBC,Urine 0-3 per hpf (0-3)
[2018-05-30] MEDS: OXYCODONE Oral CONC 10 MG/0.5 ML ORAL.SYG SL PRN (03:18)
[2018-05-30 06:45] LABS: Basophils % 0.4 %; Eosinophils # 0.1 K/mcL (0.0-0.6); Eosinophils % 1.2 %; Hematocrit 40.1 % (35.3-44.9); Hemoglobin 13.1 g/dL (11.5-15.4); Immature Granulocytes % 0.5 % (0-4); Lymphocytes # 1.6 K/mcL (0.6-4.6); Lymphocytes % 19.6 %; Mean Corpuscular HGB Conc 32.7 g/dL (31.6-35.5); Mean Corpuscular Hemoglobin 26.6 pg (28.0-33.3); Mean Corpuscular Volume 81.3 fL (83.0-100.0); Mean Platelet Volume 13.2 fL (9.4-12.4); Monocytes # 0.8 K/mcL (0.0-1.3); Monocytes % 9.6 %; Neutrophils # 5.7 K/mcL (1.6-8.9); Platelet Count 201 K/mcL (140-400); Red Blood Count 4.93 M/mcL (3.82-4.97); Red Cell Distribution Width 15.7 % (11.5-14.5); Segmented Neutrophils % 68.7 %
[2018-05-30 06:48] LABS: INR 2.7; Prothrombin Time 30.5 Seconds (9.4-12.1)
[2018-05-30] MEDS: Aspirin Enteric Coated 81 MG Tablet PO SCH (08:14)
[2018-05-30] MEDS: Insulin LISPRO 300 UNITS/3 ML VIAL SQ SCH ×2 (08:14→11:44)
[2018-05-30] MEDS: Furosemide 40 MG TABLET PO SCH (08:14)
[2018-05-30 09:23] LABS: BUN/Creatinine Ratio 29 (6-26); Blood Urea Nitrogen 20 mg/dL (8-23); Calcium 9.3 mg/dL (8.6-10.3); Carbon Dioxide 21 mEq/L (23-29); Chloride 102 mEq/L (98-107); Glucose 285 mg/dL (70-105); Osmolality,Calculated 293 (280-300); Potassium 4.1 mEq/L (3.5-5.1); Sodium 135 mEq/L (136-145); eGFR For Non-African Americans > 60 (> 60)
[2018-05-30 11:21] VITALS: BP 120/79
--- NOTE | 2018-05-30 11:35 | Discharge Summary ---
Orders not resulted at time of discharge: Pending orders 05/29/18 17:42 EKG [ECG 12 lead ECG] [ECG] Stat 05/31/18 04:00 Basic Metabolic Panel AM 0400 CBC [Complete Blood Count] [HEME] AM 0400 INR/PT [Prothrombin Time INR] [COAG] AM 0400 06/01/18 04:00 INR/PT [Prothrombin Time INR] [COAG] AM 0400 Date of Encounter: 05/30/18 Time of Encounter: 08:00 - Discharge Diagnosis (1) DVT prophylaxis Priority: Secondary Status: Acute Assessment and Plan: SCDs ordered. Pt is ambulatory in her room. Pt has a cane, wheelchair, and a scooter at home. 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 Liver ultrasound showed a questionable 1.7 cm hyperechoic lesion in left hepatic lobe seen only one single image, it was not seen on recent CT. Recommended dedicated liver MRI for further evaluation. Reconsulted 05/26 for results of liver US and pt c/o RUQ tenderness and fullness that she did not report previously. Pt cannot have MRI due to pacemaker. CT abdomen with and without contrast showed cirrhotic morphology liver with moderate amount of abdominal ascites and mesenteric edema. No focal hepatic lesion was identified. Again noted were bilateral pleural effusions with associated airspace disease, greater on left, atelectasis and/or pneumonia. Pericardial effusion remained stable. Pt will need to follow up with GI after discharge. Continue lasix at home and follow up with GI outpatient. Pt reports less dyspnea /SOB, improving. Qualifiers: Ascites type: other type Qualified Code(s): R18.8 - Other ascites (3) Fluid overload Priority: Secondary Status: Acute Assessment and Plan: Continuing to improve. Plan as above. Qualifiers: Hypervolemia type: unspecified Qualified Code(s): E87.70 - Fluid overload, unspecified (4) Pericardial effusion Priority: Secondary Status: Acute Assessment and Plan: Small-moderate pericardial effusion present on echo dated 05/19/18 No evidence of hemodynamic compromise or tamponade Serial troponin trended negative [address] abdomen 05/26. Continue telemetry Continue diuresis as above Repeat echo after discharge, PCP will need to order. Pt denies chest pain, NSR on monitor. (5) Atrial fibrillation Priority: Secondary Status: Chronic Assessment and Plan: Per history, has pacemaker S1S2 RRR Continue home meds. Cont warfarin, pharmacy to dose; INR therapeutic 2.7 Qualifiers: Atrial fibrillation type: chronic Qualified Code(s): I48.2 - Chronic atrial fibrillation (6) Spontaneous bacterial peritonitis Priority: Secondary Status: Ruled-out (7) Peripheral edema Priority: Secondary Status: Acute Assessment and Plan: Pt has had peripheral edema/fluid overload, secondary to CHF exacerbation, AYALA. Diuresis as above. Improving, pt had +2-+3 pitting peripheral edema to BLE, now has +2 pitting edema BLE pretibial area only. Continue diuresis with home dose of lasix and aldactone Electrolytes, vitals stable and WNL (8) Morbid obesity Priority: Secondary Status: Chronic Assessment and Plan: Chronic, due in part to ascites and fluid overload. Encourage increased activity and appropriate diet. (9) Acute exacerbation of congestive heart failure Priority: Primary Status: Acute Assessment and Plan: Acute exacerbation of chronic heart failure, unclear whether systolic or diastolic, see TTE results below Fluid overload with abdominal swelling, bilateral lower extremity 2+ pitting pretibial edema, seems to have improved some today, pt verbalizes improvement Pt is doing well with fluid restriction and edema appears to be improving, SOB has improved. TTE findings are as follows: Technically challenging due to body habitus. Grossly, LV systolic function appears normal. Indeterminate diastolic function. RV is not well evaluated. Severely dilated left atrium. Mild tricuspid regurgitation. Mild pulmonary hypertension by TR gradient. IVC not well visualized to estimate RVSP. There is a small to moderate pericardial effusion present. There is no echocardiographic evidence of tamponade. Continue Aldactone 100mg po daily, fluid restriction 1.5 liter, daily weights. Lasix dose held yesterday morning for hyponatremia, which has resolved. Continue home po dose. Low sodium diet. Pt has approximately -3.8 liter fluid deficit this a.m. Pt will require close follow up with PCP Qualifiers: Heart failure type: unspecified Qualified Code(s): I50.9 - Heart failure, unspecified Hospital course: Please see assessment and plan for hospital course. Discharge discussed with: patient, family, nurse - Time Spent with Patient Total time spent providing and/or coordinating discharge services: Less than 30 minutes - Discharge Medications Prescriptions: Docusate [Colace] 100 mg PO BID #60 capsule Lactulose 20 gm PO HS #360 ml Home Medications: Metformin HCl [Glucophage] 1,000 mg PO BID 05/21/15 [History] Metoprolol [Lopressor] 25 mg PO BID 05/21/15 [History] glipiZIDE [Glipizide] 10 mg PO BID 05/21/15 [History] Aspirin Enteric Coated [Aspirin EC] 81 mg PO DAILY 05/22/15 [History] Spironolactone [Aldactone] 25 mg PO DAILY 05/22/15 [History] Oxygen 2 l NS AD PRN 08/01/16 [History] Simvastatin [Zocor] 40 mg PO HS 08/01/16 [History] Furosemide [Lasix] 40 mg PO BID #60 09/29/16 [Rx] Potassium Chloride [Klor-Con 10] 2 tab PO DAILY 02/26/17 [History] Dicyclomine [Bentyl] 10 mg PO QID 05/19/18 [History] Fluticasone/Vilanterol [Breo Ellipta 200-25 Mcg INH] 1 puff IH DAILY 05/19/18 [ History] Lisinopril [Zestril] 5 mg PO DAILY 05/19/18 [History] Pantoprazole Sodium 20 mg PO DAILY 05/19/18 [History] Warfarin Sodium 5 mg PO DAILY 05/19/18 [History] amLODIPine [Norvasc] 5 mg PO DAILY 05/19/18 [History] raNITIdine HCl [Ranitidine HCl] 150 mg PO BID 05/19/18 [History] Docusate [Colace] 100 mg PO BID #60 capsule 05/30/18 [Rx] Lactulose 20 gm PO HS #360 ml 05/30/18 [Rx] Allergies/Adverse Reactions: 3 Allergy/AdvReac Type Severity Reaction Status Date / Time No Known Allergies Allergy Verified 05/19/18 10:10 Date of admission: 05/20/18 10:44 Primary care physician: Desi Cornell Consults: 05/21/18 15:18 Consult to Cardiology [CONS] Routine Comment: Consulting Provider: Cardiology Silvia Reason for Consult: pericardial effusion Time Notified: 15:19 Call Completed: Yes Consult to Gastroenterology [CONS] Routine Consulting Provider: Gastroenterology Silvia Reason for Consult: ascites Time Notified: 15:18 Call Completed: Yes Discharging clinician: Blanca Posey Anticipated date of discharge: 05/30/18 - Constitutional Vitals: Temp Pulse Resp BP Pulse Ox 98.4 F 75 18 120/79 94 05/30/18 11:19 05/30/18 11:19 05/30/18 11:19 05/30/18 11:19 05/30/18 11:19 General appearance: Present: cooperative, A&O X 3, morbidly obese, pleasant, answers questions appropriately Exam: as above - Head Head exam: Present: atraumatic, normal inspection, normocephalic - Eye Eye exam: Present: normal appearance, conjuntiva pink, sclera anicteric - Neck Neck exam general surgery: Present: supple, trachea midline. Absent: lymphadenopathy, tenderness - Respiratory Respiratory exam: Present: CTAB. Absent: accessory muscle use, chest wall tenderness, rales, rhonchi, wheezes - Cardiovascular Cardiovascular exam: Present: RRR, +S1, +S2. Absent: diastolic murmur, gallop, rubs, systolic murmur - GI/Abdominal GI/Abdominal exam: Present: normal bowel sounds, soft. Absent: distended, hepatomegaly, tenderness - Extremities Exam Extremities exam: Present: normal capillary refill, normal inspection, warm, radial pulses palpable and symmetrical. Absent: calf tenderness, cyanotic, pedal edema, tenderness - Neurological Exam Neurological exam: Present: alert, oriented X3, no focal deficits. Absent: facial droop, speech deficit - Skin Skin exam: Present: dry, intact, normal color, warm. Absent: rash - Patient Status Disposition: Home, Self-Care Condition: Good Functional capacity at discharge: wheelchair bound Overall status at discharge: patient is progressing back to baseline - Discharge Instructions Follow Up With: Desi Cornell [Primary Care Provider] - 06/07/18 9:15 am Forms: ED Satisfaction Letter, Work/School Release Additional Instructions: Please see your PCP as soon as you can get in this week. Take your medications as directed, your new prescriptions are at your pharmacy Watch your sodium and watch your fluids, 1.5 liters daily No extra salt, packaged foods, prepared foods Return to the ER as needed for any other problems or concerns, or if your symptoms return or worsen. Return to your normal activities as tolerated. - Diet and Activity Activity: increase activity as tolerated, resume usual activities as tolerated, wear oxygen at night Diet: diabetic diet, low salt diet - VTE Reasons for not Prescribing Prophylaxis: Not indicated-Anticoagulated or INR therapeutic Documentation of Mechanical Device: Intermittent pneumatic compression device
[2018-05-30] MEDS ORDERED: *HR* Warfarin 2.5 MG TABLET PO ONE (18:00)
== END 2018-05-30 15:08 | disposition home or self-care (01) | DRG 441 ==
LOC: 3BNU 21:27 → EMEROOARM 21:27 → SUATTDRO 05-19 01:09 → 3BNU 05-19 01:29
PROVIDERS: ADMIT Pediatrics; ATTEND Internal Medicine

== ENCOUNTER 2021-03-07 20:34 | Observation (INO) ==
[2021-03-07] MEDS ORDERED: Isovue-370 500 ML BOTTLE IVP ONE (21:09)
[2021-03-07] MEDS ORDERED: Morphine Sulfate 2 MG/ML SYRINGE IVP STA (21:10)
[2021-03-07 21:19] LABS: Basophils % 0.4 %; Eosinophils # 0.1 K/mcL (0.0-0.6); Hematocrit 37.4 % (35.3-44.9); Immature Granulocytes % 0.5 % (0-4); Lymphocytes # 2.4 K/mcL (0.6-4.6); Mean Corpuscular HGB Conc 32.1 g/dL (31.6-35.5); Mean Corpuscular Volume 84.2 fL (83.0-100.0); Mean Platelet Volume 11.9 fL (9.4-12.4); Monocytes # 0.7 K/mcL (0.0-1.3); Monocytes % 6.5 %; Neutrophils # 7.2 K/mcL (1.6-8.9); Platelet Count 204 K/mcL (140-400); Red Blood Count 4.44 M/mcL (3.82-4.97); Red Cell Distribution Width 15.9 % (11.5-14.5); Segmented Neutrophils % 68.6 %; White Blood Count 10.4 K/mcL (4.3-11.1)
[2021-03-07 21:42] LABS: BUN/Creatinine Ratio 20 (6-26); Blood Urea Nitrogen 33 mg/dL (8-23); Calcium 8.7 mg/dL (8.6-10.3); Carbon Dioxide 27 mEq/L (23-29); Chloride 99 mEq/L (98-107); Glucose 199 mg/dL (70-105); Osmolality,Calculated 299 (280-300); Potassium 3.8 mEq/L (3.5-5.1); Sodium 138 mEq/L (136-145); Troponin I < 0.03 ng/mL (< 0.04); eGFR For African Americans 36 (> 60); eGFR For Non-African Americans 30 (> 60)
[2021-03-07] MEDS ORDERED: 0.9 % Sodium Chloride 500 ML IVC STA (22:20)
[2021-03-08] MEDS ORDERED: *HR* Promethazine 25 MG/ML VIAL IM PRN (00:13)
[2021-03-08] MEDS ORDERED: Melatonin 3 MG TABLET PO PRN (00:13)
[2021-03-08] MEDS ORDERED: Ondansetron 4 MG/2 ML VIAL IVP PRN (00:13)
[2021-03-08] MEDS ORDERED: Naloxone 0.4 MG/ML INJ IVP PRN (00:13)
[2021-03-08] MEDS ORDERED: Acetaminophen 325 MG TABLET PO PRN (00:13)
[2021-03-08] MEDS ORDERED: Perflutren Lipid Microsphere 1.3 ML in 0.9 % Sodium Chloride 8.7 ML IVP PRN (00:19)
[2021-03-08] MEDS: *HR* HYDROcodone/Acet 5/325 mg TABLET PO PRN ×2 (01:43→20:36)
[2021-03-08] MEDS: Ringers Solution, Lactated 1,000 ML IVC SCH ×2 (03:06→14:56)
[2021-03-08 03:57] LABS: Protein/Creatinine Ratio,Urine 0.67 mg/mg (0.00-0.20); Sodium, Urine 37.7 mEq/L
[2021-03-08 04:41] LABS: INR 3.2; Prothrombin Time 35.8 Seconds (9.4-12.1)
[2021-03-08 04:46] LABS: Albumin 3.7 g/dL (3.5-5.7); Albumin/Globulin Ratio 1.3 (1.1-2.2); Bilirubin,Total 1.1 mg/dL (0.3-1.0); Calcium 8.3 mg/dL (8.6-10.3); Chol/HDL Ratio 4.1 (0-4.9); Globulin 2.9 g/dL (2.4-3.5); Potassium 3.3 mEq/L (3.5-5.1); Total Protein 6.6 g/dL (6.4-8.9); Troponin I 0.03 ng/mL (< 0.04)
[2021-03-08 05:19] LABS: Estimated Average Glucose 223 mg/dl; Hemoglobin A1C 9.4 %
[2021-03-08] MEDS: *HR* Heparin 5,000 UNIT/ML VIAL SQ SCH ×3 (05:23→20:30)
[2021-03-08 05:47] LABS: Bilirubin,Urine Negative (Negative); Blood,Urine Negative (Negative); Clarity,Urine Clear (Clear); Color,Urine Light-Yellow (Yellow); Glucose,Urine (UA) Normal (Normal); Ketones,Urine Negative (Negative); Leukocyte Esterase,Urine Moderate (Negative); Nitrite,Urine Negative (Negative); Protein,Urine 30 mg/dL (Neg-Trace); RBC,Urine 0-3 per hpf (0-3); Specific Gravity,Urine 1.012 (1.010-1.025); Squamous Epithelial Cell,Urine Few per hpf (None-Few); Urobilinogen,Urine Normal (Normal); WBC,Urine 50-100 per hpf (0-3)
[2021-03-08] MEDS: Budesonide/Formoterol 80/4.5 1 PUFF INH IH SCH ×2 (07:17→22:35)
[2021-03-08] MEDS ORDERED: Aspirin Enteric Coated 81 MG Tablet PO SCH (09:00)
[2021-03-08] MEDS: Aspirin Enteric Coated 325 MG Tablet PO SCH (15:24)
[2021-03-09] MEDS: Ringers Solution, Lactated 1,000 ML IVC SCH (01:43)
[2021-03-09] MEDS: *HR* Heparin 5,000 UNIT/ML VIAL SQ SCH ×2 (06:10→14:11)
[2021-03-09 09:01] LABS: INR 2.3; Prothrombin Time 25.7 Seconds (9.4-12.1)
[2021-03-09 09:05] LABS: Calcium 8.3 mg/dL (8.6-10.3); Potassium 3.5 mEq/L (3.5-5.1)
[2021-03-09] MEDS: Aspirin Enteric Coated 325 MG Tablet PO SCH (10:01)
[2021-03-09 11:07] VITALS: BP 132/79
[2021-03-09] MEDS: Budesonide/Formoterol 80/4.5 1 PUFF INH IH SCH (11:44)
== END 2021-03-09 15:00 | disposition home or self-care (01) ==
LOC: EMEROOARM 20:34 → 3BNU 20:34 → SUATTDRO 23:29 → 3BNU 03-08 00:03
PROVIDERS: ADMIT Internal Medicine; ATTEND Internal Medicine

== ENCOUNTER 2022-05-01 15:19 | Inpatient (IN) ==
[2022-05-01 16:02] LABS: Basophils % 0.5 %; Eosinophils # 0.1 K/mcL (0.0-0.6); Eosinophils % 1.5 %; Hematocrit 34.2 % (35.3-44.9); Hemoglobin 10.7 g/dL (11.5-15.4); Immature Granulocytes % 0.6 % (0-4); Lymphocytes # 1.3 K/mcL (0.6-4.6); Lymphocytes % 16.5 %; Mean Corpuscular HGB Conc 31.3 g/dL (31.6-35.5); Mean Corpuscular Hemoglobin 24.9 pg (28.0-33.3); Mean Corpuscular Volume 79.7 fL (83.0-100.0); Monocytes # 0.5 K/mcL (0.0-1.3); Monocytes % 5.9 %; Neutrophils # 6.1 K/mcL (1.6-8.9); Platelet Count 197 K/mcL (140-400); Red Blood Count 4.29 M/mcL (3.82-4.97); Red Cell Distribution Width 17.3 % (11.5-14.5); White Blood Count 8.1 K/mcL (4.3-11.1)
[2022-05-01 16:21] LABS: Calcium 9.2 mg/dL (8.6-10.3); Potassium 3.5 mEq/L (3.5-5.1); Troponin I 0.03 ng/mL (< 0.04)
[2022-05-01 20:20] LABS: INR 3.6; Prothrombin Time 39.6 Seconds (9.4-12.1)
[2022-05-01 20:23] LABS: Activated Partial Thrombo Time 43.7 Seconds (26.0-36.0)
[2022-05-01] MEDS ORDERED: Melatonin 3 MG TABLET PO PRN (21:05)
[2022-05-01] MEDS ORDERED: Ondansetron ODT 4 MG TAB.RAPDIS SL PRN (21:05)
[2022-05-01] MEDS ORDERED: Naloxone 0.4 MG/ML INJ IVP PRN (21:05)
[2022-05-01] MEDS ORDERED: *HR* OxyCODONE Immed Rel 5 MG TABLET PO PRN (21:05)
[2022-05-01] MEDS ORDERED: Acetaminophen 325 MG TABLET PO PRN (21:05)
[2022-05-01] MEDS ORDERED: *HR* HYDROcodone/Acet 5/325 mg TABLET PO PRN (21:05)
[2022-05-01] MEDS ORDERED: Nitroglycerin 0.4 MG TAB.SUBL SL PRN (21:09)
[2022-05-01 21:44] LABS: Influenza A PCR Negative (Negative); Influenza B PCR Negative (Negative); Resp. Syncytial Virus PCR Negative (Negative)
[2022-05-01 21:45] LABS: SARS-CoV-2 by PCR (In House) Negative (Negative)
[2022-05-01] MEDS ORDERED: *HR* Dextrose 50 % in Water (Syg) 50 ML SYRINGE IVP PRN (21:58)
[2022-05-01] MEDS ORDERED: Dextrose Gel 15 GM/37.5 ML TUBE PO PRN ×2 (21:58)
[2022-05-01] MEDS ORDERED: D5% in Water 1,000 ML IVC PRN (21:58)
[2022-05-01] MEDS ORDERED: *HR* Warfarin 4 MG TABLET PO SCH (22:15)
[2022-05-01] MEDS: Insulin LISPRO 300 UNITS/3 ML VIAL SUBQ SCH (23:12)
[2022-05-01] MEDS: Torsemide 20 MG TABLET PO SCH (23:29)
[2022-05-02 03:14] LABS: Hematocrit 33.6 % (35.3-44.9); Hemoglobin 10.4 g/dL (11.5-15.4); Mean Corpuscular Hemoglobin 24.8 pg (28.0-33.3); Mean Corpuscular Volume 80.2 fL (83.0-100.0); Mean Platelet Volume 11.6 fL (9.4-12.4); Platelet Count 212 K/mcL (140-400); Red Blood Count 4.19 M/mcL (3.82-4.97); Red Cell Distribution Width 17.2 % (11.5-14.5); White Blood Count 8.3 K/mcL (4.3-11.1)
[2022-05-02 03:24] LABS: INR 3.2; Prothrombin Time 35.2 Seconds (9.4-12.1)
[2022-05-02 03:35] LABS: Albumin 3.6 g/dL (3.5-5.7); Albumin/Globulin Ratio 1.2 (1.1-2.2); Bilirubin,Direct 0.2 mg/dL (0.0-0.2); Bilirubin,Total 1.2 mg/dL (0.3-1.0); Chol/HDL Ratio 4.2 (0-4.9); Globulin 2.9 g/dL (2.4-3.5); Potassium 3.4 mEq/L (3.5-5.1); Total Protein 6.5 g/dL (6.4-8.9)
[2022-05-02 03:46] LABS: Thyroid Stimulating Hormone 0.946 mcIU/mL (0.340-5.600)
[2022-05-02 05:10] LABS: Estimated Average Glucose 232 mg/dl; Hemoglobin A1C 9.7 %
[2022-05-02] MEDS: Insulin LISPRO 300 UNITS/3 ML VIAL SUBQ SCH ×3 (05:58→17:08)
[2022-05-02] MEDS ORDERED: Regadenoson 0.4 MG/5 ML SYRINGE IVP ONE (06:27)
[2022-05-02] MEDS ORDERED: Aspirin 81 MG TAB.CHEW PO SCH (09:00)
[2022-05-02] MEDS: Torsemide 20 MG TABLET PO SCH ×2 (09:52→17:08)
[2022-05-02] MEDS ORDERED: Lactulose Oral Soln 20 GM/30 ML UDC PO PRN (17:29)
[2022-05-02] MEDS ORDERED: Warfarin perPT PO PRN (18:00)
[2022-05-02] MEDS ORDERED: *HR* Warfarin 2 MG TABLET PO ONE (18:00)
[2022-05-02] MEDS: Budesonide/Formoterol 160/4.5 1 PUFF INH IH SCH (20:35)
[2022-05-02] MEDS: Insulin DETEMIR 100 UNIT/ML X5UNITS SUBQ SCH (21:45)
[2022-05-02] MEDS ORDERED: *HR* Warfarin 5 MG TABLET PO SCH (22:03)
[2022-05-03] MEDS: Insulin LISPRO 300 UNITS/3 ML VIAL SUBQ SCH ×4 (01:13→17:51)
[2022-05-03 02:08] LABS: INR 2.7
[2022-05-03] MEDS: Budesonide/Formoterol 160/4.5 1 PUFF INH IH SCH ×2 (07:36→21:50)
[2022-05-03] MEDS: Torsemide 20 MG TABLET PO SCH ×2 (08:34→16:55)
[2022-05-03] MEDS: Aspirin Enteric Coated 81 MG Tablet PO SCH (08:34)
[2022-05-03] MEDS ORDERED: *HR* Warfarin 2 MG TABLET PO ONE (18:00)
[2022-05-03] MEDS: Insulin DETEMIR 100 UNIT/ML X5UNITS SUBQ SCH (20:39)
[2022-05-04] MEDS: Insulin LISPRO 300 UNITS/3 ML VIAL SUBQ SCH ×4 (00:25→18:20)
[2022-05-04 03:24] LABS: Calcium 8.9 mg/dL (8.6-10.3); Potassium 3.6 mEq/L (3.5-5.1)
[2022-05-04 05:13] LABS: INR 2.2; Prothrombin Time 24.7 Seconds (9.4-12.1)
[2022-05-04] MEDS: Budesonide/Formoterol 160/4.5 1 PUFF INH IH SCH ×2 (08:23→22:09)
[2022-05-04] MEDS: Torsemide 20 MG TABLET PO SCH ×2 (09:57→18:20)
[2022-05-04] MEDS: Aspirin Enteric Coated 81 MG Tablet PO SCH (09:58)
[2022-05-04] MEDS ORDERED: *HR* Warfarin 4 MG TABLET PO ONE (18:00)
[2022-05-04] MEDS: polyethylene glycoL 3350 17 GM POWD.PACK PO SCH (18:20)
[2022-05-04] MEDS: GuaiFENesin/Dextromethorphan TABLET PO PRN (18:20)
[2022-05-04] MEDS: Insulin DETEMIR 100 UNIT/ML X5UNITS SUBQ SCH (20:23)
[2022-05-05] MEDS: Insulin LISPRO 300 UNITS/3 ML VIAL SUBQ SCH ×2 (00:07→05:34)
[2022-05-05 03:01] LABS: Prothrombin Time 22.2 Seconds (9.4-12.1)
[2022-05-05 07:10] VITALS: BP 113/68; PULSE 78; TEMP 97.7; O2SAT 98
[2022-05-05] MEDS: Budesonide/Formoterol 160/4.5 1 PUFF INH IH SCH (07:34)
[2022-05-05] MEDS: Torsemide 20 MG TABLET PO SCH (08:23)
[2022-05-05] MEDS: polyethylene glycoL 3350 17 GM POWD.PACK PO SCH (08:24)
[2022-05-05] MEDS: GuaiFENesin/Dextromethorphan TABLET PO PRN (08:24)
[2022-05-05] MEDS: Aspirin Enteric Coated 81 MG Tablet PO SCH (08:24)
[2022-05-05] MEDS ORDERED: *HR* Warfarin 4 MG TABLET PO ONE (18:00)
== END 2022-05-05 12:58 | disposition home or self-care (01) | DRG 291 ==
LOC: EMEROOARM 15:19 → 2ANU 15:19 → SUATTDRO 21:27 → 2ANU 21:59
PROVIDERS: ADMIT Internal Medicine; ATTEND Internal Medicine